=== PATIENT | male | born 1965 | race Caucasian/White ===

== ENCOUNTER 2017-07-30 17:50 | Emergency (ER) | payer MEDICAID, OTHER ==
--- NOTE | 2017-07-30 19:07 | ED Physician Documentation ---
PD HPI URI - Stated complaint Stated Complaint: FLU LIKE SYMPTOMS - Chief complaint Chief Complaint: Resp - History obtained from History obtained from: Patient - History of Present Illness Timing - onset: How many days ago (4) Timing duration: Days (4) Timing details: Abrupt onset, Still present Associated symptoms: Fever, Chills, Nasal congestion, Sore throat, Dry cough, NVD. No: Hemoptysis Contributing factors: No: Sick contact, Travel, Immunocompromised Worsened by: Activity Similar symptoms before: Has not had sx before Recently seen: Not recently seen Review of Systems Constitutional: reports: Fever, Chills, Myalgias, Fatigue Nose: reports: Rhinorrhea / runny nose, Congestion Throat: reports: Sore throat Cardiac: reports: Chest pain / pressure, Pedal edema, Calf pain Respiratory: reports: Cough GI: reports: Nausea, Vomiting. denies: Diarrhea Skin: denies: Rash, Lesions PD PAST MEDICAL HISTORY - Past Medical History Past Medical History: No Cardiovascular: None Respiratory: None Neuro: None Endocrine/Autoimmune: None GI: None : None HEENT: None Psych: None Musculoskeletal: None Derm: None - Past Surgical History Past Surgical History: No - Present Medications Home Medications: Ambulatory Orders Medication Instructions Recorded Confirmed Benzonatate [Tessalon] 100 mg PO TID PRN #25 capsule 07/30/17 Dexamethasone [Decadron] 4 mg PO DAILY #5 tablet 07/30/17 Naproxen 375 mg PO BID #20 tablet 07/30/17 Ondansetron Odt [Zofran] 4 mg TL Q6H PRN #15 tablet 07/30/17 oxyCODONE [Roxicodone] 10 mg PO QID 07/30/17 - Allergies Allergies/Adverse Reactions: Allergies Allergy/AdvReac Type Severity Reaction Status Date / Time No Known Drug Allergies Allergy Verified 08/01/17 18:45 - Social History Does the pt smoke?: Yes Smoking Status: Current every day smoker Does the pt drink ETOH?: No Does the pt have substance abuse?: No - Immunizations Immunizations are current?: No Immunizations: Other immun not current - POLST Patient has POLST: No PD ED PE NORMAL - Vitals Vital signs reviewed: Yes - General General: Alert and oriented X 3, No acute distress, Well developed/nourished - HEENT HEENT: Ears normal, Pharynx benign. No: Moist mucous membranes - Neck Neck: Supple, no meningeal sign, No adenopathy - Cardiac Cardiac: RRR, No murmur - Respiratory Respiratory: Clear bilaterally - Abdomen Abdomen: Soft, Non tender - Derm Derm: Normal color, Warm and dry, No rash - Neuro Neuro: Alert and oriented X 3, No motor deficit, Normal speech Results - Vitals Vitals: Oxygen O2 Source Room air - Labs Labs: Laboratory Tests 07/30/17 19:29 Sodium 129 L Potassium 4.5 Chloride 93 L Carbon Dioxide 26 Anion Gap 10.0 BUN 19 Creatinine 1.0 Estimated GFR (MDRD) 78 L Glucose 109 H Calcium 8.7 Total Bilirubin 0.7 AST 25 ALT 16 Alkaline Phosphatase 47 Total Protein 6.9 Albumin 3.5 Globulin 3.4 Albumin/Globulin Ratio 1.0 Lipase 17 L PD MEDICAL DECISION MAKING - ED course Complexity details: considered differential (feeling some improved energy with IV fluids and able to take oral fluids/snack. However still feeling general malaise and myalgias. He is 4 days into the illness and not a high risk by history, so opted not to give the Tamiflu. ), d/w patient Departure - Departure Disposition: Home, Self Care Clinical Impression: Flu-like symptoms, Dehydration Condition: Stable Record reviewed to determine appropriate education?: Yes Instructions: ED Dehydration, ED Flu Follow-Up: Deya Bedoya MD [Primary Care Provider] - Prescriptions: Benzonatate [Tessalon] 100 mg PO TID PRN #25 capsule PRN Reason: Cough Dexamethasone [Decadron] 4 mg PO DAILY #5 tablet Naproxen 375 mg PO BID #20 tablet Ondansetron Odt [Zofran] 4 mg TL Q6H PRN #15 tablet PRN Reason: Nausea / Vomiting Comments: Drink lots of fluids. Tylenol if needed for fevers or pains. Naproxen twice daily for inflammation and pains. Decadron daily for 5 days as a steroid for inflammation as well and helps with cough and general aches. Ondansetron if needed for nausea. Hopefully will start feeling better in the next few days. Discharge Date/Time: 07/30/17 21:18
[2017-07-30] MEDS ORDERED: KETOROLAC 60 MG/2 ML VIAL IVP STA (19:15)
[2017-07-30] MEDS ORDERED: ONDANSETRON 4 MG/2 ML VIAL IVP STA (19:15)
[2017-07-30] MEDS ORDERED: DEXAMETHASONE 10 MG/ML VIAL IVP STA (19:15)
[2017-07-30] MEDS ORDERED: SODIUM CHLORIDE 0.9% 1,000 ML IV ONE ×2 (19:15)
[2017-07-30 19:48] LABS: ALBUMIN 3.5 g/dL (3.2-5.5); BILIRUBIN,TOTAL 0.7 mg/dL (0.2-1.0); CALCIUM 8.7 mg/dL (8.5-10.3); TOTAL PROTEIN 6.9 g/dL (6.7-8.2)
--- NOTE | 2017-07-30 19:55 | XRAY Report ---
EXAM: CHEST RADIOGRAPHY EXAM DATE: 07/30/2017 07:37 PM. CLINICAL HISTORY: Chest pain, left sided. COMPARISON: 03/27/2011. TECHNIQUE: 2 views. FINDINGS: Lungs/Pleura: No focal opacities evident. No pleural effusion. No pneumothorax. Normal volumes. Mediastinum: Heart and mediastinal contours are unremarkable. Other: No bony abnormality noted. IMPRESSION: Normal 2-view chest radiography. [facility] Referring Provider Line: [phone] SITE ID: [id number]
[2017-07-30] MEDS ORDERED: BENZONATATE 100 MG CAPSULE PO STA (20:57)
[2017-07-30] MEDS ORDERED: ONDANSETRON ODT 4 MG Prepack 2 TL PRN (20:57)
[2017-07-30 21:17] VITALS: BP 138/77
== END 2017-07-30 21:18 | disposition home or self-care (01) ==
LOC: ED 17:50
DX: R50.9 Fever, unspecified (principal); R09.81 Nasal congestion; J02.9 Acute pharyngitis, unspecified; E86.0 Dehydration; F17.200 Nicotine dependence, unspecified, uncomplicated
CPT/HCPCS: 36415; 71046; 80053; 83690; 96361; 96374; 96375; 99283; 99284; A9270

== ENCOUNTER 2017-08-01 18:36 | Observation (INO) | payer OTHER ==
--- NOTE | 2017-08-01 20:08 | ED Physician Documentation ---
PD HPI ABD PAIN - Stated complaint Stated Complaint: ABD PX/VOMITING - Chief complaint Chief Complaint: Abd Pain - History obtained from History obtained from: Patient - History of Present Illness Timing - onset: How many days ago (4) Timing - duration: Days (4) Timing - details: Gradual onset Pain level now: 10 Quality: Pain Location: All over / everywhere Radiation: Other (does not radiate) Improved by: Eating, Laying still Worsened by: Moving Associated symptoms: Nausea, Vomiting, Loss of appetite. No: Fever Similar symptoms before: No diagnosis Recently seen: Emergency Dept (T+R 2 days ago for similar symptoms) - Additional information Additional information: c/o 4 days of generalized malaise and myalgias, abdominal pain, nausea and vomiting, poor appetite. c/o fatigue. T+R 2 days ago for similar symptoms but did not fill the prescriptions provided, as he did not feel he would need them. Review of Systems Constitutional: reports: Myalgias, Fatigue. denies: Fever, Chills, Sweats Ears: reports: Reviewed and negative Nose: reports: Reviewed and negative Throat: denies: Sore throat Cardiac: reports: Reviewed and negative Respiratory: reports: Reviewed and negative GI: reports: Abdominal Pain, Nausea, Vomiting : denies: Dysuria, Frequency Skin: reports: Reviewed and negative Musculoskeletal: reports: Reviewed and negative Neurologic: reports: Generalized weakness. denies: Focal weakness, Numbness, Headache PD PAST MEDICAL HISTORY - Past Medical History Cardiovascular: None Respiratory: None Neuro: None Endocrine/Autoimmune: None GI: None : None HEENT: None Psych: None Musculoskeletal: None Derm: None - Past Surgical History Past Surgical History: No - Present Medications Home Medications: Ambulatory Orders Medication Instructions Recorded Confirmed Benzonatate [Tessalon] 100 mg PO TID PRN #25 capsule 07/30/17 Dexamethasone [Decadron] 4 mg PO DAILY #5 tablet 07/30/17 Naproxen 375 mg PO BID #20 tablet 07/30/17 Ondansetron Odt [Zofran] 4 mg TL Q6H PRN #15 tablet 07/30/17 oxyCODONE [Roxicodone] 10 mg PO QID 07/30/17 - Allergies Allergies/Adverse Reactions: Allergies Allergy/AdvReac Type Severity Reaction Status Date / Time No Known Drug Allergies Allergy Verified 08/01/17 18:45 - Social History Does the pt smoke?: Yes Smoking Status: Current every day smoker Does the pt drink ETOH?: No Does the pt have substance abuse?: No - Immunizations Immunizations are current?: No Immunizations: Other immun not current - POLST Patient has POLST: No PD ED PE NORMAL - Vitals Vital signs reviewed: Yes - General General: Alert and oriented X 3, No acute distress, Well developed/nourished - HEENT HEENT: Moist mucous membranes - Neck Neck: Supple, no meningeal sign - Cardiac Cardiac: RRR, No murmur, No gallop, No rub - Respiratory Respiratory: No respiratory distress, Clear bilaterally - Abdomen Abdomen: Soft, Other (mild generalized tenderness without rebound or guarding) - Back Back: No CVA TTP - Derm Derm: Normal color, Warm and dry Results - Vitals Vitals: Vital Signs - 24 hr 08/01/17 08/01/17 18:40 20:40 Temperature 36.9 C 37.3 C Heart Rate 63 60 Respiratory 22 22 Rate Blood Pressure 135/83 H O2 Saturation 99 100 Oxygen O2 Source Room air - Labs Labs: Laboratory Tests 08/01/17 08/01/17 08/01/17 19:55 20:00 20:00 WBC 12.1 H RBC 5.49 Hgb 15.3 Hct 45.1 MCV 82.2 MCH 27.9 MCHC 34.0 RDW 13.7 Plt Count 206 MPV 7.8 Neut # 9.3 H Lymph # 1.3 L [place] # 1.5 H Eos # 0.0 Baso # 0.0 Absolute Nucleated RBC 0.00 Nucleated RBC % 0.0 Sodium 132 L Potassium 3.7 Chloride 95 L Carbon Dioxide 26 Anion Gap 11.0 BUN 21 H Creatinine 0.8 Estimated GFR (MDRD) 101 Glucose 115 H Calcium 9.0 Total Bilirubin 0.9 AST 32 ALT 20 Alkaline Phosphatase 49 Total Protein 7.1 Albumin 3.5 Globulin 3.6 Albumin/Globulin Ratio 1.0 Lipase 25 Urine Color YELLOW Urine Clarity CLEAR Urine pH 7.5 Ur Specific [place] 1.020 Urine Protein TRACE Urine Glucose (UA) NEGATIVE Urine Ketones >=80 H Urine Occult Blood TRACE-INTA Urine Nitrite NEGATIVE Urine Bilirubin NEGATIVE Urine Urobilinogen 4 H Ur Leukocyte Esterase NEGATIVE Ur Microscopic Review NOT INDICATED Urine Culture Comments NOT INDICATED - Rads (name of study) CT A/P Radiology: Prelim report reviewed, See rad report PD MEDICAL DECISION MAKING - ED course Complexity details: reviewed old records, reviewed results, re-evaluated patient , considered differential, d/w patient Departure - Departure Disposition: ED Place in Observation Clinical Impression: Gastritis Condition: Good Discharge Date/Time: 08/01/17 22:46
[2017-08-01 20:10] LABS: GLUCOSE, URINE (UA) NEGATIVE (NEGATIVE); KETONES,URINE (UA) >=80 mg/dL (NEGATIVE); LEUKOCYTE ESTERASE, URINE NEGATIVE (NEGATIVE); NITRITE,URINE NEGATIVE (NEGATIVE); OCCULT BLOOD,URINE TRACE-INTA (NEGATIVE); PH,URINE 7.5 PH (5.0-7.5); PROTEIN,URINE TRACE mg/dL (NEGATIVE); UROBILINOGEN,URINE 4 E.U./dL (NORMAL)
[2017-08-01 20:13] LABS: BILIRUBIN,URINE NEGATIVE (NEGATIVE); CLARITY,URINE CLEAR (CLEAR); ICTOTEST,URINE NEGATIVE
[2017-08-01 20:14] LABS: BASOPHILS % (AUTO) 0.3 %; EOSINOPHILS % (AUTO) 0.1 %; HGB - HEMOGLOBIN 15.3 g/dL (14.0-18.0); LYMPHOCYTES # (AUTO) 1.3 10^3/uL (1.5-3.5); LYMPHOCYTES % (AUTO) 10.4 %; MEAN CORPUSCULAR HEMOGLOBIN 27.9 pg (27.0-31.0); MEAN CORPUSCULAR VOLUME 82.2 fL (80.0-94.0); MEAN PLATELET VOLUME 7.8 fL (7.4-11.4); MONOCYTES # (AUTO) 1.5 10^3/uL (0.0-1.0); NEUTROPHILS # (AUTO) 9.3 10^3/uL (1.5-6.6); NEUTROPHILS % (AUTO) 77.2 %; PLT - PLATELET COUNT 206 10^3/uL (130-450); RED BLOOD COUNT 5.49 10^6/uL (4.70-6.10); RED CELL DISTRIBUTION WIDTH 13.7 % (12.0-15.0); WHITE BLOOD COUNT 12.1 x10^3/uL (4.8-10.8)
[2017-08-01 20:20] LABS: ALBUMIN 3.5 g/dL (3.2-5.5); BILIRUBIN,TOTAL 0.9 mg/dL (0.2-1.0); CREATININE 0.8 mg/dL (0.6-1.2); TOTAL PROTEIN 7.1 g/dL (6.7-8.2)
[2017-08-01] MEDS ORDERED: SODIUM CHLORIDE 0.9% 1,000 ML IV STA ×2 (20:25→21:50)
[2017-08-01] MEDS ORDERED: IOPAMIDOL-300 100 ML VIAL ONE (20:49)
[2017-08-01] MEDS ORDERED: IOPAMIDOL-300 100 ML VIAL IVP ONE (21:04)
--- NOTE | 2017-08-01 21:20 | CT Report ---
EXAM: CT ABDOMEN AND PELVIS EXAM DATE: 08/01/2017 09:04 PM. CLINICAL HISTORY: Abd. pain. COMPARISONS: None. TECHNIQUE: Routine helical CT imaging was performed through the abdomen and pelvis. IV contrast: ISOV UE 300 100mL. Enteric contrast: No. Reconstructions: Coronal and sagittal. In accordance with CT protocol optimization, one or more of the following dose reduction techniques w ere utilized for this exam: automated exposure control, adjustment of mA and/or KV based on patient s ize, or use of iterative reconstructive technique. FINDINGS: Lung Bases: Unremarkable. Liver: 0.8 cm hepatic segment 8 subcapsular hypodensity (3/21) is indeterminate, too small to charact erize. Similar 0.5 cm segment 5 hypodensity is seen (3/25). No other focal liver lesions seen. Hepati c and portal veins are patent. Gallbladder/Bile Ducts: Unremarkable. Spleen: Normal. Pancreas: Normal. Adrenal Glands: Normal. Kidneys: No solid enhancing masses or hydronephrosis bilaterally. Few rounded subcentimeter renal cor tical hypodensities bilaterally are too small to characterize, possibly cysts. Peritoneal Cavity/Bowel: There is severe wall thickening of the gastric antrum, pylorus, and the firs t second and proximal third portions of the duodenum with associated mucosal hyperenhancement. Findin gs are nonspecific, and could represent distal gastritis and proximal duodenitis. No ulcers are seen. Remainder of the small bowel loops appear unremarkable without evidence for inflammation or obstruct ion. Colon is also unremarkable with scattered diverticula without inflammation. No enlarged intraper itoneal or retroperitoneal lymph nodes are seen. No pneumoperitoneum or ascites. The appendix is well visualized and normal. Pelvic Organs: Unremarkable urinary bladder for degree of distention. Prostate and seminal vesicles a re normal. Vasculature: No aneurysms or other significant abnormality. Bones: Mild degenerative changes in the spine. Other: None. IMPRESSION: 1. Severe wall thickening of the gastric antrum, pylorus, and first through third portions of the duo denum with associated mucosal hyperenhancement is of unclear etiology, but could reflect nonspecific gastritis and proximal duodenitis. No ulcer is evident by CT. No discrete mass lesion is seen. Howeve r, an infiltrative malignancy such as lymphoma cannot be entirely excluded. Correlation with laborato ry parameters is recommended. Gastroenterology consultation could be obtained for further evaluation by endoscopy. 2. 2 small hepatic subcentimeter hypodensities are indeterminate, too small to characterize. These ma y represent small hepatic cysts or hemangiomas. Liver MRI could be obtained for further evaluation if clinically indicated. 3. Otherwise as above. [facility] Referring Provider Line: [phone] SITE ID: [id number]
[2017-08-01] MEDS ORDERED: PANTOPRAZOLE 40 MG VIAL IV STA (21:49)
[2017-08-01] MEDS ORDERED: ONDANSETRON 4 MG/2 ML VIAL IVP STA (21:50)
[2017-08-01] MEDS ORDERED: MORPHINE 2 MG/ML CARPUJECT IVP STA (21:50)
[2017-08-01] MEDS ORDERED: ONDANSETRON 4 MG/2 ML VIAL IVP PRN (22:02)
[2017-08-01] MEDS ORDERED: ZOLPIDEM 5 MG TABLET PO PRN (22:02)
[2017-08-01] MEDS ORDERED: PROCHLORPERAZINE 10 MG/2 ML VIAL IVP PRN (22:02)
[2017-08-01] MEDS ORDERED: MORPHINE 2 MG/ML CARPUJECT IVP PRN (22:02)
[2017-08-01] MEDS ORDERED: SODIUM CHLORIDE FLUSH 0.9% 10 ML SYRINGE IVP PRN (22:02)
[2017-08-01] MEDS ORDERED: oxyCODONE 5 MG TABLET PO PRN (22:02)
[2017-08-01] MEDS ORDERED: LORazepam 2 MG/ML VIAL IVP SCH (22:41)
--- NOTE | 2017-08-01 22:45 | HISTORY & PHYSICAL EXAMINATION ---
Chief Complaint - Chief Complaint Chief Complaint: Abdominal Pain History of Present Illness - Admitted From Admitted From:: Emergency Department - History Obtained From Records Reviewed: Yes History obtained from: Patient and medical records Exam Limitations: Patient writhing in pain made him disinterested in giving detailed history - History of Present Illness HPI Comment/Other: Patient is a 52-year-old gentleman with a past medical history significant for chronic low back pain and bilateral shoulder pain from previous sports related injuries currently on oxycodone and NSAIDs for treatment who presented to the emergency department with a chief complaint of abdominal pain. The patient states that he was in his normal state of health until 5 days ago when he began to develop flulike symptoms. He states that he had chills and noticed that he had a scratchy throat after he smoked a cigarette. He states he came to the emergency department 2 days ago with complaint of flulike symptoms. At that time the patient was treated with Toradol and discharged home on dexamethasone and naproxen. The patient states that he did not fill either of those scripts and did not take that medication. He states that after getting IV Zofran in the emergency department that his abdomen began to hurt. He states that he could not keep anything down. He states that he had violent intractable vomiting throughout the day yesterday. He states that after the vomiting he began to have severe pain which continued to worsen until he had another episode of vomiting. He states he continues to have episodic abdominal pain that seems to worsen to the point where it causes him to vomit and then he has some relief of the pain but then it starts back up again. He states that this has been occurring since yesterday and has gotten to a point where he states that he cannot tolerate it anymore. The patient states that he is normally on 10 mg of oxycodone 4 times a day however over the last 2 days because of his vomiting he has been not been able to keep down the oxycodone. He states that as a result he believes he is having some withdrawal symptoms as he feels very restless and has been having cold sweats. The patient denies any fevers and states his flulike symptoms seem to have improved. The patient denies any black or bloody stools. The patient does admit to using ibuprofen 800 mg up to 3 times a day prior to 2 days ago for his chronic pain. He states that he also would take Aleve intermittently in the past. The patient also admits to smoking cigarettes he states he does not smoke more than 4 cigarettes a day. The patient denied any alcohol use. The patient denied any diarrhea. The patient states that his abdominal pain is located in the epigastric area and goes down to his umbilicus. He denies any radiation of the abdominal pain. The patient states in the past he has received cortisone injections in his back but this was several years ago. The patient states that he has had decreased appetite and has not had anything to eat for the last 2 days. Patient denies any headaches, blurred vision, runny nose, sore throat, nasal congestion, cough, difficulty swallowing, chest pain, shortness of air, orthopnea, PND, increased lower extremity swelling, constipation, joint swelling , muscle aches, neck stiffness, recent unintentional weight loss, night sweats or any focal neurologic deficits. The patient also denies any urinary urgency frequency or dysuria. On presentation to the emergency department the patient was afebrile, hypertensive and mildly tachypneic. The patient however was saturating well on room air. He did appear to be in some significant distress as he was writhing around in the bed. The patient appeared to be restless and agitated. It was difficult for the emergency room staff to get detailed history from the patient because he just seemed to be very uncomfortable. On exam the patient appeared to have significant tenderness in the epigastric area and lab work showed a mild leukocytosis of 12.1. The patient's lipase was normal and his LFTs were within normal limits. Patient had a normal urine analysis. The patient underwent a CT scan of his abdomen and pelvis which revealed severe wall thickening of the gastric antrum, pylorus, and first through third parts of the duodenum with associated mucosal hyperenhancement which was of unclear etiology. It likely represented nonspecific gastritis and proximal duodenitis without any evidence of an ulcer. There was no discrete mass lesion but an infiltrative malignancy such as lymphoma could not be excluded. The radiologist recommended a consultation for endoscopy. There was also finding of 2 small hepatic subcentimeter hypodensities which were too small to characterize but could represent small hepatic cysts or hemangiomas. The radiologist also recommended a liver MRI at some point. Given the patient's severe pain and inability to tolerate anything orally the patient was placed in observation for pain control, treatment of gastritis and opioid withdrawal. History - Past Medical History Cardiovascular: reports: None Respiratory: reports: None Neuro: reports: None Endocrine/Autoimmune: reports: None GI: reports: None : reports: None HEENT: reports: None Psych: reports: None Musculoskeletal: reports: Osteoarthritis (Bilateral shoulders), Chronic back pain (Low back pain) Derm: reports: None MRSA Hx?: No - Family & Social History Family History: Mother: COPD/Emphysema, Father: CVA/TIA Living arrangement: At home Living Situation: With family (Mother) Social History Notes: Patient is originally from [place], [place]. He has 1 daughter and 2 years ago broke up with his girlfriend and now lives with his mother on [address] [facility] [address]. The patient states that most of his family lives on [address] [facility] [address]. The patient states that his mother has severe COPD and is at home in a hospital bed nearing the end of her life. The patient currently smokes 3-4 cigarettes a day. He states that he quit smoking for about 13 years but then started back up in 2014. He states he previously smoked more than a pack a day. The patient denies any alcohol use. He states he rarely smokes marijuana. - POLST Patient has POLST: No POLST Status: Full Code Meds/Allgy - Home Medications Home Medications: Ambulatory Orders Medication Instructions Recorded Confirmed Benzonatate [Tessalon] 100 mg PO TID PRN #25 capsule 07/30/17 Dexamethasone [Decadron] 4 mg PO DAILY #5 tablet 07/30/17 Naproxen 375 mg PO BID #20 tablet 07/30/17 Ondansetron Odt [Zofran] 4 mg TL Q6H PRN #15 tablet 07/30/17 oxyCODONE [Roxicodone] 10 mg PO QID 07/30/17 - Allergies Allergies/Adverse Reactions: Allergies Allergy/AdvReac Type Severity Reaction Status Date / Time No Known Drug Allergies Allergy Verified 08/01/17 18:45 Review of Systems - Other Findings Other Findings: A comprehensive review of systems was performed the pertinent positives and negatives are stated above in the HPI and the remainder of the review of systems is negative. Exam - Vital Signs Reviewed Vital Signs: Yes Vital Signs: Vital Signs x48h Pulse Resp BP Pulse Ox 08/01/17 22:03 51 L 16 170/87 H 100 - Physical Exam General Appearance: positive: Alert, Moderate distress (Patient writhing around in bed appears to be in pain and very uncomfortable) Eyes Bilateral: positive: Normal inspection, PERRL, EOMI, No lid inflammation, Conjunctivae nml, No scleral icterus ENT: positive: ENT inspection nml, Pharynx nml, Dry mucous membranes. negative : Purulent nasal drainage, Pharyngeal erythema, Oral lesions Neck: positive: Nml inspection, Thyroid nml, No JVD, Trachea midline. negative : Thyromegaly, Lymphadenopathy (R), Lymphadenopathy (L), Stiff neck, Carotid bruit, Tracheal deviation Respiratory: positive: Chest non-tender, No respiratory distress, Breath sounds nml. negative: Wheezes, Rales, Rhonchi Cardiovascular: positive: Regular rate & rhythm, No murmur Peripheral Pulses: positive: 2+ Abdomen: positive: Tenderness (Severe tenderness especially in the epigastric area with just mild touch), Guarding (Voluntary). negative: Rebound, Hepatomegaly, Splenomegaly, Mass Back: positive: Nml inspection. negative: CVA tenderness (R), CVA tenderness (L ) Skin: positive: Color nml, No rash, Warm, Dry. negative: Cyanosis, Diaphoresis , Pallor Extremities: positive: Non-tender, Full ROM, Nml appearance, No pedal edema Neurologic/Psychiatric: positive: Oriented x3, CN's nml (2-12), Motor nml, Sensation nml Conclusion/Plan - Problem List (1) Abdominal pain Conclusion/Plan: Patient has been having abdominal pain for the last 2 days it is located in the epigastric area and moves down to the umbilicus otherwise is nonradiating. Pain is severe and uncontrolled on presentation. Patient has not been able to keep anything down as he has been having intractable vomiting. Patient has a history of chronic pain and has been using ibuprofen 800 mg 3 times a day and Aleve intermittently for years. Patient received Toradol during his ER visit a few days ago. Patient had severe tenderness on examination of his abdomen. He has a mild leukocytosis. CT of his abdomen shows severe wall thickening of the gastric antrum, pylorus and first through third portion of the duodenum with associated mucosal hyperenhancement which is of unclear etiology but could reflect nonspecific gastritis and proximal duodenitis. There is no discrete lesion seen however an infiltrative malignancy such as lymphoma cannot be entirely excluded. Given the patient's history of NSAID use, smoking, acute onset of symptoms and CT findings patient appears likely to have severe gastritis and duodenitis likely from NSAID use and smoking. However given the mucosal hyper and enhancement seen on CT we cannot rule out malignancy. The cause of gastritis is likely due to excessive NSAID use and smoking however patient could also have H. pylori. Plan: Given patient's intractable pain and vomiting patient will need to be placed in observation IV fluids IV antiemetics IV PPI twice daily GI cocktail Carafate N.p.o. IV pain control with morphine Surgical consult for EGD with biopsies inpatient versus outpatient H. pylori testing with breath test and stool antigen test Monitor closely Qualifiers: Abdominal location: epigastric Qualified Code(s): R10.13 - Epigastric pain (2) Chronic pain Conclusion/Plan: Patient has chronic low back pain and shoulder pain for which he has been on opioids for years. The patient takes oxycodone 10 mg 4 times a day at home. The patient is also taking ibuprofen 800 mg 3 times a day and Aleve intermittently prior to his most recent symptoms. The patient states that due to his recent intractable vomiting he has not been able to take his oxycodone as he normally does. He states that he is feeling restless and having cold sweats which is concerning for opioid withdrawal. Plan: Patient will be placed on IV morphine for pain control and opioid withdrawal Patient will be given IV Ativan for restlessness and agitation associated with opiate withdrawal. Qualifiers: Chronic pain type: other chronic pain Qualified Code(s): G89.29 - Other chronic pain (3) Hyponatremia Conclusion/Plan: On presentation patient's sodium is 132 with a chloride of 95. The patient has been having intractable vomiting and appears to be dehydrated. The patient likely has hypovolemic hyponatremia. Patient will be treated with IV fluids and we will continue to monitor his sodium. (4) Hypertension Conclusion/Plan: On presentation to the emergency department the patient is fairly hypertensive with blood pressure as high as 170/87. Patient states he does not have a history of hypertension. Patient is likely hypertensive secondary to pain from his abdominal pathology and also from distress due to opioid withdrawal. We will treat the underlying condition if patient's blood pressure continues to be elevated then we will consider starting him on antihypertensive medication. Qualifiers: Hypertension type: unspecified Qualified Code(s): I10 - Essential (primary ) hypertension (5) Liver lesion Conclusion/Plan: Patient has incidental finding of 2 small hepatic subcentimeter hypodensities which are too small to characterize on CT. These may represent small hepatic cysts or hemangiomas. Liver MRI is recommended for further evaluation by radiologist. Patient will need outpatient MRI depending on results of EGD and biopsies. - Lab Results Lab results reviewed: Yes Fish Bones: 08/01/17 20:00 08/01/17 20:00 Other Lab Results: Laboratory Results WBC 12.1 x10^3/uL (4.8-10.8) H 08/01/17 20:00 RBC 5.49 10^6/uL (4.70-6.10) 08/01/17 20:00 Hgb 15.3 g/dL (14.0-18.0) 08/01/17 20:00 Hct 45.1 % (42.0-52.0) 08/01/17 20:00 MCV 82.2 fL (80.0-94.0) 08/01/17 20:00 MCH 27.9 pg (27.0-31.0) 08/01/17 20:00 MCHC 34.0 g/dL (32.0-36.0) 08/01/17 20:00 RDW 13.7 % (12.0-15.0) 08/01/17 20:00 Plt Count 206 10^3/uL (130-450) 08/01/17 20:00 MPV 7.8 fL (7.4-11.4) 08/01/17 20:00 Neut # 9.3 10^3/uL (1.5-6.6) H 08/01/17 20:00 Lymph # 1.3 10^3/uL (1.5-3.5) L 08/01/17 20:00 [place] # 1.5 10^3/uL (0.0-1.0) H 08/01/17 20:00 Eos # 0.0 10^3/uL (0.0-0.7) 08/01/17 20:00 Baso # 0.0 10^3/uL (0.0-0.1) 08/01/17 20:00 Absolute Nucleated RBC 0.00 x10^3/uL 08/01/17 20:00 Nucleated RBC % 0.0 /100WBC 08/01/17 20:00 Sodium 132 mmol/L (135-145) L 08/01/17 20:00 Potassium 3.7 mmol/L (3.5-5.0) 08/01/17 20:00 Chloride 95 mmol/L (101-111) L 08/01/17 20:00 Carbon Dioxide 26 mmol/L (21-32) 08/01/17 20:00 Anion Gap 11.0 (6-13) 08/01/17 20:00 BUN 21 mg/dL (6-20) H 08/01/17 20:00 Creatinine 0.8 mg/dL (0.6-1.2) 08/01/17 20:00 Estimated GFR (MDRD) 101 (>89) 08/01/17 20:00 Glucose 115 mg/dL (70-100) H 08/01/17 20:00 Calcium 9.0 mg/dL (8.5-10.3) 08/01/17 20:00 Total Bilirubin 0.9 mg/dL (0.2-1.0) 08/01/17 20:00 AST 32 IU/L (10-42) 08/01/17 20:00 ALT 20 IU/L (10-60) 08/01/17 20:00 Alkaline Phosphatase 49 IU/L (42-121) 08/01/17 20:00 Total Protein 7.1 g/dL (6.7-8.2) 08/01/17 20:00 Albumin 3.5 g/dL (3.2-5.5) 08/01/17 20:00 Globulin 3.6 g/dL (2.1-4.2) 08/01/17 20:00 Albumin/Globulin Ratio 1.0 (1.0-2.2) 08/01/17 20:00 Lipase 25 U/L (22-51) 08/01/17 20:00 Urine Color YELLOW 08/01/17 19:55 Urine Clarity CLEAR (CLEAR) 08/01/17 19:55 Urine pH 7.5 PH (5.0-7.5) 08/01/17 19:55 Ur Specific [place] 1.020 (1.002-1.030) 08/01/17 19:55 Urine Protein TRACE mg/dL (NEGATIVE) 08/01/17 19:55 Urine Glucose (UA) NEGATIVE mg/dL (NEGATIVE) 08/01/17 19:55 Urine Ketones >=80 mg/dL (NEGATIVE) H 08/01/17 19:55 Urine Occult Blood TRACE-INTA (NEGATIVE) 08/01/17 19:55 Urine Nitrite NEGATIVE (NEGATIVE) 08/01/17 19:55 Urine Bilirubin NEGATIVE (NEGATIVE) 08/01/17 19:55 Urine Urobilinogen 4 E.U./dL (NORMAL) H 08/01/17 19:55 Ur Leukocyte Esterase NEGATIVE (NEGATIVE) 08/01/17 19:55 Ur Microscopic Review NOT INDICATED 08/01/17 19:55 Urine Culture Comments NOT INDICATED 08/01/17 19:55 - Diagnostic Imaging Results Diagnostic Imaging Results: positive: Final report reviewed Diagnostic Imaging Results Comments: EXAM: CT ABDOMEN AND PELVIS EXAM DATE: 08/01/2017 09:04 PM. CLINICAL HISTORY: Abd. pain. COMPARISONS: None. TECHNIQUE: Routine helical CT imaging was performed through the abdomen and pelvis. IV contrast: ISOVUE 300 100mL. Enteric contrast: No. Reconstructions: Coronal and sagittal. In accordance with CT protocol optimization, one or more of the following dose reduction techniques were utilized for this exam: automated exposure control, adjustment of mA and/or KV based on patient size, or use of iterative reconstructive technique. FINDINGS: Lung Bases: Unremarkable. Liver: 0.8 cm hepatic segment 8 subcapsular hypodensity (3/21) is indeterminate , too small to characterize. Similar 0.5 cm segment 5 hypodensity is seen (3/25). No other focal liver lesions seen. Hepatic and portal veins are patent. Gallbladder/Bile Ducts: Unremarkable. Spleen: Normal. Pancreas: Normal. Adrenal Glands: Normal. Kidneys: No solid enhancing masses or hydronephrosis bilaterally. Few rounded subcentimeter renal cortical hypodensities bilaterally are too small to characterize, possibly cysts. Peritoneal Cavity/Bowel: There is severe wall thickening of the gastric antrum, pylorus, and the first second and proximal third portions of the duodenum with associated mucosal hyperenhancement. Findings are nonspecific, and could represent distal gastritis and proximal duodenitis. No ulcers are seen. Remainder of the small bowel loops appear unremarkable without evidence for inflammation or obstruction. Colon is also unremarkable with scattered diverticula without inflammation. No enlarged intraperitoneal or retroperitoneal lymph nodes are seen. No pneumoperitoneum or ascites. The appendix is well visualized and normal. Pelvic Organs: Unremarkable urinary bladder for degree of distention. Prostate and seminal vesicles are normal. Vasculature: No aneurysms or other significant abnormality. Bones: Mild degenerative changes in the spine. Other: None. IMPRESSION: 1. Severe wall thickening of the gastric antrum, pylorus, and first through third portions of the duodenum with associated mucosal hyperenhancement is of unclear etiology, but could reflect nonspecific gastritis and proximal duodenitis. No ulcer is evident by CT. No discrete mass lesion is seen. However, an infiltrative malignancy such as lymphoma cannot be entirely excluded. Correlation with laboratory parameters is recommended. Gastroenterology consultation could be obtained for further evaluation by endoscopy. 2. 2 small hepatic subcentimeter hypodensities are indeterminate, too small to characterize. These may represent small hepatic cysts or hemangiomas. Liver MRI could be obtained for further evaluation if clinically indicated. 3. Otherwise as above. Core Measures - Anticipated LOS I expect patient to be DC'd or transferred within 96 hours.: Yes - DVT/VTE - Prophylaxis VTE/DVT Device ordered at admit?: Yes
[2017-08-01] MEDS ORDERED: PANTOPRAZOLE 40 MG TABLET PO SCH (23:00)
[2017-08-01] MEDS ORDERED: LORazepam 2 MG/ML VIAL ONE ×2 (23:32→23:39)
[2017-08-01] MEDS: GI COCKTAIL 120 ML BOTTLE PO SCH (23:44)
[2017-08-01] MEDS: SUCRALFATE 1 GM/10 ML UDC PO SCH (23:44)
[2017-08-01] MEDS: SODIUM CHLORIDE FLUSH 0.9% 10 ML SYRINGE IVP SCH (23:47)
[2017-08-01] MEDS: SODIUM CHLORIDE 0.9% 1,000 ML IV SCH (23:49)
[2017-08-02] MEDS: SODIUM CHLORIDE 0.9% 1,000 ML IV SCH ×3 (04:15→22:34)
[2017-08-02] MEDS: SUCRALFATE 1 GM/10 ML UDC PO SCH ×4 (05:53→22:33)
[2017-08-02] MEDS: ACETAMINOPHEN 325 MG TABLET PO PRN ×2 (05:54→15:15)
[2017-08-02 06:06] LABS: BASOPHILS % (AUTO) 0.2 %; EOSINOPHILS % (AUTO) 0.2 %; HGB - HEMOGLOBIN 13.8 g/dL (14.0-18.0); LYMPHOCYTES # (AUTO) 1.6 10^3/uL (1.5-3.5); LYMPHOCYTES % (AUTO) 15.3 %; MEAN CORPUSCULAR HGB CONC 34.1 g/dL (32.0-36.0); MEAN CORPUSCULAR VOLUME 82.1 fL (80.0-94.0); MEAN PLATELET VOLUME 7.5 fL (7.4-11.4); MONOCYTES # (AUTO) 1.5 10^3/uL (0.0-1.0); MONOCYTES % (AUTO) 14.3 %; NEUTROPHILS # (AUTO) 7.1 10^3/uL (1.5-6.6); PLT - PLATELET COUNT 194 10^3/uL (130-450); RED BLOOD COUNT 4.93 10^6/uL (4.70-6.10); RED CELL DISTRIBUTION WIDTH 13.5 % (12.0-15.0); WHITE BLOOD COUNT 10.2 x10^3/uL (4.8-10.8)
[2017-08-02 06:09] LABS: ALBUMIN 2.9 g/dL (3.2-5.5); BILIRUBIN,TOTAL 0.7 mg/dL (0.2-1.0); CALCIUM 8.2 mg/dL (8.5-10.3); CREATININE 0.8 mg/dL (0.6-1.2); MAGNESIUM 1.8 mg/dL (1.7-2.8); PHOSPHORUS 2.7 mg/dL (2.5-4.6); TOTAL PROTEIN 5.9 g/dL (6.7-8.2)
[2017-08-02] MEDS: POLYETHYLENE GLYCOL 3350 17 GM PACKET PO SCH (09:22)
[2017-08-02] MEDS: SODIUM CHLORIDE FLUSH 0.9% 10 ML SYRINGE IVP SCH ×2 (09:22→20:50)
[2017-08-02] MEDS: GI COCKTAIL 120 ML BOTTLE PO SCH ×4 (09:44→21:07)
[2017-08-02] MEDS: PANTOPRAZOLE 40 MG VIAL IVP SCH ×2 (09:44→20:51)
[2017-08-02] MEDS: oxyCODONE 5 MG TABLET PO PRN ×2 (09:50→20:59)
[2017-08-02] MEDS ORDERED: KETAMINE 500 MG/10 ML VIAL IVP ONE (10:30)
[2017-08-02] MEDS ORDERED: MIDAZOLAM 2 MG/2 ML VIAL IVP ONE (10:30)
[2017-08-02] MEDS ORDERED: SODIUM CHLORIDE 0.9% 1,000 ML IV ONE (10:58)
[2017-08-02] MEDS ORDERED: BENZOCAINE/TETRACAINE/BUTAMBEN SPRAY 56 GM TOP ONE (11:03)
--- NOTE | 2017-08-02 14:22 | PROVIDER PROGRESS NOTE ---
Subjective - Prog Note Date Prog Note Date: 08/02/17 - Subjective Pt reports feeling: Improved Subjective: pt state his abdominal pain is improved. No nausea, vomiting, chest pain, shortness of breath, fever, chill, cough Current Medications - Current Medications Current Medications: Active Medications Acetaminophen (Tylenol) 650 mg PO Q4HR PRN PRN Reason: Pain 1 to 4 Last Admin: 08/02/17 05:54 Dose: 650 mg Sodium Chloride (Normal Saline 0.9%) 1,000 mls @ 100 mls/hr IV .Q10H [facility] Last Admin: 08/02/17 12:49 Dose: 100 mls/hr Morphine Sulfate (Morphine (Carpuject)) 2 mg IVP Q2HR PRN PRN Reason: Pain 8 to 10 Multi-Ingredient Mouthwash/Gargle () 30 ml PO QID [facility] Last Admin: 08/02/17 13:09 Dose: Not Given Ondansetron HCl (Zofran Inj) 4 mg IVP Q6HR PRN PRN Reason: Nausea / Vomiting Oxycodone HCl (Roxicodone) 5 mg PO Q4HR PRN PRN Reason: Pain 5 to 7 Oxycodone HCl (Roxicodone) 10 mg PO Q4HR PRN PRN Reason: Pain 8 to 10 Last Admin: 08/02/17 09:50 Dose: 10 mg Pantoprazole Sodium (Protonix) 40 mg IVP BID [facility] Last Admin: 08/02/17 09:44 Dose: 40 mg Polyethylene Glycol (Miralax) 17 gm PO DAILY [facility] Last Admin: 08/02/17 09:22 Dose: Not Given Prochlorperazine Edisylate (Compazine Inj) 10 mg IVP Q6HR PRN PRN Reason: Nausea / Vomiting Sodium Chloride (Normal Saline Flush 0.9%) 10 ml IVP PRN PRN PRN Reason: NEEDED PER PROVIDER ORDERS Sodium Chloride (Normal Saline Flush 0.9%) 10 ml IVP 0100,0900,1700 [facility] Last Admin: 08/02/17 09:22 Dose: Not Given Sucralfate (Carafate) 1 gm PO 0700,1100,1600,2200 [facility] Last Admin: 08/02/17 12:00 Dose: 1 gm Zolpidem Tartrate (Ambien) 5 mg PO QPM PRN PRN Reason: Insomnia oxyCODONE [Roxicodone] 10 mg PO QID PRN 07/30/17 Ibuprofen 200 mg PO Q6H PRN 08/02/17 Objective - Vital Signs/Intake & Output Reviewed Vital Signs: Yes Vital Signs: Vital Signs x48h Temp Pulse Resp BP BP Pulse Ox 08/02/17 13:55 36.6 C 52 L 16 149/75 H 98 08/02/17 12:55 36.7 C 51 L 16 137/72 H 98 08/02/17 12:25 36.6 C 66 16 140/78 H 96 08/02/17 11:54 36.9 C 59 L 16 145/77 H 96 08/02/17 11:45 96 08/02/17 11:40 96 08/02/17 11:36 97 08/02/17 11:31 97 08/02/17 11:24 96 08/02/17 11:19 97 08/02/17 07:33 36.7 C 53 L 16 150/76 H 99 Intake & Output: Intake & Output 07/30/17 07/31/17 08/01/17 08/02/17 23:59 23:59 23:59 23:59 Intake Total 1270 1300.000 Balance 1270 1300.000 - Objective General Appearance: positive: No acute distress, Alert. negative: Lethargic Eyes Bilateral: positive: Normal inspection, PERRL ENT: positive: ENT inspection nml, Pharynx nml, No signs of dehydration. negative: Purulent nasal drainage, Pharyngeal erythema, Oral lesions Neck: positive: Nml inspection, Thyroid nml, No JVD, Trachea midline. negative : Thyromegaly, Lymphadenopathy (R), Lymphadenopathy (L), Stiff neck, Carotid bruit, Swelling/bruising, Tracheal deviation Respiratory: positive: Chest non-tender, No respiratory distress, Breath sounds nml. negative: Wheezes, Rales, Rhonchi Cardiovascular: positive: Regular rate & rhythm, No murmur, No gallop. negative : Irregularly irregular, Extrasystoles, Tachycardia, Bradycardia, Systolic murmur, Diastolic murmur Peripheral Pulses: 2+ Radial (R), 2+ Radial (L), 2+ Dorsalis pedis (R), 2+ Dorsalis pedis (L) Abdomen: positive: Non-tender, No organomegaly, Nml bowel sounds, No distention. negative: Tenderness, Guarding, Rebound Back: positive: Nml inspection. negative: CVA tenderness (R), CVA tenderness (L ) Skin: positive: Color nml, No rash, Warm, Dry. negative: Cyanosis, Diaphoresis , Pallor Extremities: positive: Non-tender, Full ROM, Nml appearance. negative: Calf tenderness, Joint swelling, Isabella's sign/cords Neurologic/Psychiatric: positive: Oriented x3, Sensation nml, Mood/affect nml. negative: Sensory loss, Facial droop, Slurred/abnml speech, Depressed mood/ affect - Lab Results Fish Bones: 08/02/17 05:45 08/02/17 05:45 Other Labs: Lab Results x24hrs 08/02/17 08/02/17 08/02/17 Range/Units 05:45 05:45 05:45 WBC 10.2 (4.8-10.8) x10^3/uL RBC 4.93 (4.70-6.10) 10^6/uL Hgb 13.8 L (14.0-18.0) g/dL Hct 40.5 L (42.0-52.0) % MCV 82.1 (80.0-94.0) fL MCH 28.0 (27.0-31.0) pg MCHC 34.1 (32.0-36.0) g/dL RDW 13.5 (12.0-15.0) % Plt Count 194 (130-450) 10^3/uL MPV 7.5 (7.4-11.4) fL Neut # 7.1 H (1.5-6.6) 10^3/uL Lymph # 1.6 (1.5-3.5) 10^3/uL [place] # 1.5 H (0.0-1.0) 10^3/uL Eos # 0.0 (0.0-0.7) 10^3/uL Baso # 0.0 (0.0-0.1) 10^3/uL Absolute Nucleated RBC 0.00 x10^3/uL Nucleated RBC % 0.0 /100WBC Sodium 134 L (135-145) mmol/L Potassium 4.0 (3.5-5.0) mmol/L Chloride 102 (101-111) mmol/L Carbon Dioxide 26 (21-32) mmol/L Anion Gap 6.0 (6-13) BUN 17 (6-20) mg/dL Creatinine 0.8 (0.6-1.2) mg/dL Estimated GFR (MDRD) 101 (>89) Glucose 106 H (70-100) mg/dL Lactic Acid 0.8 (0.5-2.2) mmol/L Calcium 8.2 L (8.5-10.3) mg/dL Phosphorus 2.7 (2.5-4.6) mg/dL Magnesium 1.8 (1.7-2.8) mg/dL Total Bilirubin 0.7 (0.2-1.0) mg/dL AST 23 (10-42) IU/L ALT 16 (10-60) IU/L Alkaline Phosphatase 39 L (42-121) IU/L Total Protein 5.9 L (6.7-8.2) g/dL Albumin 2.9 L (3.2-5.5) g/dL Globulin 3.0 (2.1-4.2) g/dL Albumin/Globulin Ratio 1.0 (1.0-2.2) Assessment/Plan - Problem List (1) Abdominal pain Impression: (1) Abdominal pain Conclusion/Plan: status post of EGD surgeon found pt has multiple ulcers in his stomach, and duodenum area continue PPI continue carafate advise pt hold Ibuprofen follow up surgeon in one month begin clear diet recommend stay over night per surgeon Patient has been having abdominal pain for the last 2 days it is located in the epigastric area and moves down to the umbilicus otherwise is nonradiating. Pain is severe and uncontrolled on presentation. Patient has not been able to keep anything down as he has been having intractable vomiting. Patient has a history of chronic pain and has been using ibuprofen 800 mg 3 times a day and Aleve intermittently for years. Patient received Toradol during his ER visit a few days ago. Patient had severe tenderness on examination of his abdomen. He has a mild leukocytosis. CT of his abdomen shows severe wall thickening of the gastric antrum, pylorus and first through third portion of the duodenum with associated mucosal hyperenhancement which is of unclear etiology but could reflect nonspecific gastritis and proximal duodenitis. There is no discrete lesion seen however an infiltrative malignancy such as lymphoma cannot be entirely excluded. Given the patient's history of NSAID use, smoking, acute onset of symptoms and CT findings patient appears likely to have severe gastritis and duodenitis likely from NSAID use and smoking. However given the mucosal hyper and enhancement seen on CT we cannot rule out malignancy. The cause of gastritis is likely due to excessive NSAID use and smoking however patient could also have H. pylori. Plan: Given patient's intractable pain and vomiting patient will need to be placed in observation IV fluids IV antiemetics IV PPI twice daily GI cocktail Carafate N.p.o. IV pain control with morphine Surgical consult for EGD with biopsies inpatient versus outpatient H. pylori testing with breath test and stool antigen test Monitor closely (2) Chronic pain Conclusion/Plan: continue pain control continue Ativan for restlessness and agitation Patient has chronic low back pain and shoulder pain for which he has been on opioids for years. The patient takes oxycodone 10 mg 4 times a day at home. The patient is also taking ibuprofen 800 mg 3 times a day and Aleve intermittently prior to his most recent symptoms. The patient states that due to his recent intractable vomiting he has not been able to take his oxycodone as he normally does. He states that he is feeling restless and having cold sweats which is concerning for opioid withdrawal. Plan: Patient will be placed on IV morphine for pain control and opioid withdrawal Patient will be given IV Ativan for restlessness and agitation associated with opiate withdrawal. (3) Hyponatremia Conclusion/Plan: better, now Na is 134 On presentation patient's sodium is 132 with a chloride of 95. The patient has been having intractable vomiting and appears to be dehydrated. The patient likely has hypovolemic hyponatremia. Patient will be treated with IV fluids and we will continue to monitor his sodium. (4) Hypertension Conclusion/Plan: stable now, continue BP meds treatment On presentation to the emergency department the patient is fairly hypertensive with blood pressure as high as 170/87. Patient states he does not have a history of hypertension. Patient is likely hypertensive secondary to pain from his abdominal pathology and also from distress due to opioid withdrawal. We will treat the underlying condition if patient's blood pressure continues to be elevated then we will consider starting him on antihypertensive medication. (5) Liver lesion Conclusion/Plan: pt need outpatient MRI Patient has incidental finding of 2 small hepatic subcentimeter hypodensities which are too small to characterize on CT. These may represent small hepatic cysts or hemangiomas. Liver MRI is recommended for further evaluation by radiologist. Patient will need outpatient MRI depending on results of EGD and biopsies. Qualifiers: Abdominal location: epigastric Qualified Code(s): R10.13 - Epigastric pain
[2017-08-03] MEDS: SODIUM CHLORIDE FLUSH 0.9% 10 ML SYRINGE IVP SCH ×2 (01:28→08:50)
[2017-08-03] MEDS: SUCRALFATE 1 GM/10 ML UDC PO SCH ×2 (06:18→10:05)
[2017-08-03 07:40] VITALS: BP 135/72
[2017-08-03] MEDS: POLYETHYLENE GLYCOL 3350 17 GM PACKET PO SCH (08:39)
[2017-08-03] MEDS: PANTOPRAZOLE 40 MG VIAL IVP SCH (08:50)
[2017-08-03] MEDS: GI COCKTAIL 120 ML BOTTLE PO SCH (08:53)
--- NOTE | 2017-08-03 09:01 | Discharge Plan ---
Discharge Plan Disposition: 01 Home, Self Care Condition: Stable Prescriptions: Omeprazole 40 mg PO DAILY #7 capsule. Sucralfate [Carafate] 1 gm PO TID #20 tablet Diet: Regular Activity Restrictions: Activity as Tolerated Shower Restrictions: No Driving Restrictions: No Weight Bearing: Full Weight Instruction Topics: Omeprazole tablets OTC, Sucralfate tablets, Gastric Duodenal Ulcer Ch, Gastric Ulcer Additional Instructions or Follow Up instructions: May see PCP in 2-3 days, hold ibuprofen, see Dr. Elpidio Barrow in one month. Should symptoms return or worsen, may present to ER or call 911 for help. No Smoking: If you smoke, Please STOP! Call for help. Follow-up with: Deya Bedoya MD [Primary Care Provider] -
--- NOTE | 2017-08-03 09:07 | DISCHARGE SUMMARY ---
"Discharge Summary Discharge Date: 08/03/17 Discharging Provider: MOBLEY Primary Care Provider: Deya Suh Condition at Discharge: Stable Discharge Disposition: 01 Home, Self Care Discharge Facility Name: home - DIAGNOSES Admission Diagnoses: (1) Abdominal pain (2) Chronic pain (3) Hyponatremia (4) Hypertension (5) Liver lesion Discharge Diagnoses with Status of Each Condition: (1) Abdominal pain resolved. (2) gastric ulcer In EGD, pt was found multiple gastric ulcer. Pt is prescribed omeprazole and Carafate. pt is advised to hold Ibuprofen, follow up PCP closely, and follow up Dr. Barrow in one month. (3) Chronic pain Discuss with pt for his this long time issue, advise pt gradually reduce pain medication as needed until ceased. Pt agree it. I also advise pt follow up PCP closely and discuss this issue with his PCP. (4) Hyponatremia Na is 134 today, closely to normal 135 (5) Hypertension stable. (6) Liver lesion discuss with pt the finding 2 small hepatic subcentimeter hypodensities which are indeterminate, may represent small hetatic cysts or hemangiomas. I advise pt discuss with his PCP, and may have out-pt MRI, May follow up Dr. Barrow for the biopsy. - HPI History of Present Illness: refer from Dr. Reyes's HPI on 08/01/17 as the following: Patient is a 52-year-old gentleman with a past medical history significant for chronic low back pain and bilateral shoulder pain from previous sports related injuries currently on oxycodone and NSAIDs for treatment who presented to the emergency department with a chief complaint of abdominal pain. The patient states that he was in his normal state of health until 5 days ago when he began to develop flulike symptoms. He states that he had chills and noticed that he had a scratchy throat after he smoked a cigarette. He states he came to the emergency department 2 days ago with complaint of flulike symptoms. At that time the patient was treated with Toradol and discharged home on dexamethasone and naproxen. The patient states that he did not fill either of those scripts and did not take that medication. He states that after getting IV Zofran in the emergency department that his abdomen began to hurt. He states that he could not keep anything down. He states that he had violent intractable vomiting throughout the day yesterday. He states that after the vomiting he began to have severe pain which continued to worsen until he had another episode of vomiting. He states he continues to have episodic abdominal pain that seems to worsen to the point where it causes him to vomit and then he has some relief of the pain but then it starts back up again. He states that this has been occurring since yesterday and has gotten to a point where he states that he cannot tolerate it anymore. The patient states that he is normally on 10 mg of oxycodone 4 times a day however over the last 2 days because of his vomiting he has been not been able to keep down the oxycodone. He states that as a result he believes he is having some withdrawal symptoms as he feels very restless and has been having cold sweats. The patient denies any fevers and states his flulike symptoms seem to have improved. The patient denies any black or bloody stools. The patient does admit to using ibuprofen 800 mg up to 3 times a day prior to 2 days ago for his chronic pain. He states that he also would take Aleve intermittently in the past. The patient also admits to smoking cigarettes he states he does not smoke more than 4 cigarettes a day. The patient denied any alcohol use. The patient denied any diarrhea. The patient states that his abdominal pain is located in the epigastric area and goes down to his umbilicus. He denies any radiation of the abdominal pain. The patient states in the past he has received cortisone injections in his back but this was several years ago. The patient states that he has had decreased appetite and has not had anything to eat for the last 2 days. Patient denies any headaches, blurred vision, runny nose, sore throat, nasal congestion, cough, difficulty swallowing, chest pain, shortness of air, orthopnea, PND, increased lower extremity swelling, constipation, joint swelling , muscle aches, neck stiffness, recent unintentional weight loss, night sweats or any focal neurologic deficits. The patient also denies any urinary urgency frequency or dysuria. On presentation to the emergency department the patient was afebrile, hypertensive and mildly tachypneic. The patient however was saturating well on room air. He did appear to be in some significant distress as he was writhing around in the bed. The patient appeared to be restless and agitated. It was difficult for the emergency room staff to get detailed history from the patient because he just seemed to be very uncomfortable. On exam the patient appeared to have significant tenderness in the epigastric area and lab work showed a mild leukocytosis of 12.1. The patient's lipase was normal and his LFTs were within normal limits. Patient had a normal urine analysis. The patient underwent a CT scan of his abdomen and pelvis which revealed severe wall thickening of the gastric antrum, pylorus, and first through third parts of the duodenum with associated mucosal hyperenhancement which was of unclear etiology. It likely represented nonspecific gastritis and proximal duodenitis without any evidence of an ulcer. There was no discrete mass lesion but an infiltrative malignancy such as lymphoma could not be excluded. The radiologist recommended a consultation for endoscopy. There was also finding of 2 small hepatic subcentimeter hypodensities which were too small to characterize but could represent small hepatic cysts or hemangiomas. The radiologist also recommended a liver MRI at some point. Given the patient's severe pain and inability to tolerate anything orally the patient was placed in observation for pain control, treatment of gastritis and opioid withdrawal. - CONSULTS | PROCEDURES Consultations: Dr. Barrow Procedures: EGD - HOSPITAL COURSE Hospital Course: pt was admitted for abdominal pain. CT of abdomen reveals severe wall thickening of the gastric antrum, pylorus. Pt had EGD which reveals pt had multiple gastric ulcer. Pt was treated IV protonic, carafate, pain control. Then pt's abdominal pain is resolved. pt request to be d/c to home today. pt was prescribed Omeprazole, carafate, advise to hold Ibuprofen, continue home medication except of Ibuprofen. - ALLERGIES Allergies/Adverse Reactions: Allergies Allergy/AdvReac Type Severity Reaction Status Date / Time No Known Drug Allergies Allergy Verified 08/01/17 18:45 - MEDICATIONS Home Medications: Ambulatory Orders Medication Instructions Recorded Confirmed oxyCODONE [Roxicodone] 10 mg PO QID PRN 07/30/17 08/02/17 Omeprazole 40 mg PO DAILY #7 capsule. 08/03/17 Sucralfate [Carafate] 1 gm PO TID #20 tablet 08/03/17 - PHYSICAL EXAM AT DISCHARGE General Appearance: positive: No acute distress, Alert. negative: Lethargic Eyes Bilateral: positive: Normal inspection, PERRL, No lid inflammation, Conjunctivae nml ENT: positive: ENT inspection nml, Pharynx nml, No signs of dehydration. negative: Purulent nasal drainage, Pharyngeal erythema, Oral lesions Neck: positive: Nml inspection, Thyroid nml, No JVD, Trachea midline. negative : Thyromegaly, Lymphadenopathy (R), Lymphadenopathy (L), Stiff neck, Carotid bruit, Swelling/bruising, Tracheal deviation Respiratory: positive: Chest non-tender, No respiratory distress, Breath sounds nml. negative: Wheezes, Rales, Rhonchi Cardiovascular: positive: Regular rate & rhythm, No murmur, No gallop. negative : Irregularly irregular, Extrasystoles, Tachycardia, Bradycardia, Systolic murmur, Diastolic murmur Peripheral Pulses: positive: 2+ Abdomen: positive: Non-tender, No organomegaly, Nml bowel sounds, No distention. negative: Tenderness, Guarding, Rebound, Abnml bowel sounds Back: positive: Nml inspection. negative: CVA tenderness (R), CVA tenderness (L ) Skin: positive: Color nml, No rash, Warm, Dry. negative: Cyanosis, Diaphoresis , Pallor Extremities: positive: Non-tender, Full ROM, Nml appearance. negative: Calf tenderness, Joint swelling, Isabella's sign/cords Neurologic/Psychiatric: positive: Oriented x3, Motor nml, Sensation nml, Mood/ affect nml. negative: Sensory loss, Facial droop, Slurred/abnml speech, Depressed mood/affect - LABS Result Diagrams: 08/02/17 05:45 08/02/17 05:45 - FOLLOW UP Follow Up: May see PCP in 2-3 days, hold ibuprofen, see Dr. Elpidio Barrow in one month. Should symptoms return or worsen, may present to ER or call 911 for help."
== END 2017-08-03 10:21 | disposition home or self-care (01) ==
LOC: ED 18:36 → OBS 21:13
PROVIDERS: ADMIT Internal Medicine; ATTEND Nurse Practitioner Gerontology
PROC: 0DB68ZX Excision of Stomach, Via Natural or Artificial Opening Endoscopic, Diagnostic (ICD-10-PCS; 2017-08-02)
PROC: 0DB98ZX Excision of Duodenum, Via Natural or Artificial Opening Endoscopic, Diagnostic (ICD-10-PCS; principal; 2017-08-02 10:00)
DX: K26.9 Duodenal ulcer, unspecified as acute or chronic, without hemorrhage or perforation (principal); K29.70 Gastritis, unspecified, without bleeding; K44.9 Diaphragmatic hernia without obstruction or gangrene; G89.21 Chronic pain due to trauma; E87.1 Hypo-osmolality and hyponatremia; I10 Essential (primary) hypertension; K21.9 Gastro-esophageal reflux disease without esophagitis; M54.5 Low back pain; M19.112 Post-traumatic osteoarthritis, left shoulder; M19.111 Post-traumatic osteoarthritis, right shoulder; F17.210 Nicotine dependence, cigarettes, uncomplicated; Z79.1 Long term (current) use of non-steroidal anti-inflammatories (NSAID); Z79.891 Long term (current) use of opiate analgesic
CPT/HCPCS: 36415; 43239; 74177; 80053; 81003; 83605; 83690; 83735; 84100; 85025; 96361; 96374; 96375; 96376; 99218; 99283; 99284; A9270; J2060; Q9967; 81001; 83013; 87086; 87338

== ENCOUNTER 2017-12-12 08:00 | Outpatient (CLI) | payer OTHER | END 2017-12-12 08:01 | disposition home or self-care (01) | LOC: LAB.R 08:00 | PROVIDERS: ATTEND Internal Medicine | DX: J02.9 Acute pharyngitis, unspecified (principal) | CPT/HCPCS: 87070; 87430 ==

== ENCOUNTER 2018-02-03 10:32 | Emergency (ER) | payer OTHER ==
[2018-02-03] MEDS ORDERED: KETOROLAC 30 MG/ML VIAL ONE (10:45)
[2018-02-03] MEDS ORDERED: SODIUM CHLORIDE 0.9% 1,000 ML IV ONE ×2 (10:49→13:02)
[2018-02-03] MEDS ORDERED: KETOROLAC 60 MG/2 ML VIAL IVP STA (10:50)
--- NOTE | 2018-02-03 10:52 | ED Physician Documentation ---
PD HPI ABD PAIN - Stated complaint Stated Complaint: RIGHT SIDE PX - Chief complaint Chief Complaint: Abd Pain - History obtained from History obtained from: Patient, Family - History of Present Illness Timing - onset: Today Timing - duration: Minutes Timing - details: Abrupt onset, Still present Quality: Sharp, Pain Location: RUQ Radiation: Right flank Improved by: Other (nothing) Worsened by: Other (nothing) Associated symptoms: No: Fever, Nausea, Vomiting, Hematemesis, Diarrhea, Constipation Similar symptoms before: Has not had sx before Recently seen: Not recently seen - Additional information Additional information: Previously healthy 52-year-old male has developed some pain in his back on the right side. This started about 2 weeks ago and was off and on the patient thought this was a muscle pull and then this morning the pain became severe and unrelenting. He has come to the emergency department this morning and is pacing in the department with severe pain. Review of Systems Constitutional: denies: Fever Eyes: denies: Decreased vision Ears: denies: Ear pain Nose: denies: Congestion Throat: denies: Sore throat Cardiac: denies: Chest pain / pressure Respiratory: denies: Dyspnea, Cough GI: reports: Abdominal Pain, Nausea. denies: Vomiting, Constipation, Diarrhea : denies: Dysuria, Frequency Skin: denies: Rash Musculoskeletal: reports: Back pain. denies: Neck pain, Extremity pain PD PAST MEDICAL HISTORY - Past Medical History Cardiovascular: None Respiratory: None Endocrine/Autoimmune: None GI: None : None HEENT: None Psych: None Musculoskeletal: None Derm: None - Past Surgical History Past Surgical History: No - Present Medications Home Medications: Ambulatory Orders Medication Instructions Recorded Confirmed oxyCODONE [Roxicodone] 10 mg PO QID PRN 07/30/17 08/02/17 Omeprazole 40 mg PO DAILY #7 capsule. 08/03/17 Sucralfate [Carafate] 1 gm PO TID #20 tablet 08/03/17 Cyclobenzaprine [Flexeril] 10 mg PO TID PRN #20 tablet 02/03/18 - Allergies Allergies/Adverse Reactions: Allergies Allergy/AdvReac Type Severity Reaction Status Date / Time No Known Drug Allergies Allergy Verified 08/01/17 18:45 - Social History Does the pt smoke?: Yes Smoking Status: Current every day smoker Does the pt drink ETOH?: No Does the pt have substance abuse?: No - Immunizations Immunizations are current?: No Immunizations: Other immun not current - POLST Patient has POLST: No POLST Status: Full Code PD ED PE NORMAL - Vitals Vital signs reviewed: Yes (hypertensive ) - General General: Alert and oriented X 3, Well developed/nourished, Other (The patient is hopping around in the ED and crying in pain ) - HEENT HEENT: Atraumatic, PERRL, EOMI - Neck Neck: Supple, no meningeal sign, No bony TTP - Cardiac Cardiac: RRR, No murmur - Respiratory Respiratory: No respiratory distress, Clear bilaterally - Abdomen Abdomen: Soft, Non tender - Back Back: No CVA TTP, No spinal TTP - Derm Derm: Normal color, Warm and dry, No rash - Extremities Extremities: No deformity, No edema - Neuro Neuro: Alert and oriented X 3, No motor deficit, No sensory deficit, Normal speech Eye Opening: Spontaneous Motor: Obeys Commands Verbal: Oriented GCS Score: 15 - Psych Psych: Normal mood, Normal affect Results - Vitals Vitals: Vital Signs - 24 hr 02/03/18 02/03/18 02/03/18 10:35 11:28 13:10 Temperature 36.8 C Heart Rate 75 71 52 L Respiratory 20 20 18 Rate Blood Pressure 156/100 H 177/92 H 160/88 H O2 Saturation 99 100 55 L Oxygen O2 Source Room air - Labs Labs: Laboratory Tests 02/03/18 02/03/18 02/03/18 10:41 10:41 11:20 WBC 6.8 RBC 5.29 Hgb 15.0 Hct 44.3 MCV 83.8 MCH 28.4 MCHC 33.9 RDW 13.9 Plt Count 231 MPV 7.1 L Neut # (Auto) 4.1 Lymph # (Auto) 1.7 [place] # (Auto) 0.6 Eos # (Auto) 0.3 Baso # (Auto) 0.1 Absolute Nucleated RBC 0.01 Nucleated RBC % 0.1 Sodium 134 L Potassium 4.1 Chloride 100 L Carbon Dioxide 26 Anion Gap 8.0 BUN 15 Creatinine 1.1 Estimated GFR (MDRD) 70 L Glucose 119 H Calcium 9.4 Total Bilirubin 0.6 AST 25 ALT 21 Alkaline Phosphatase 61 Total Protein 7.7 Albumin 4.3 Globulin 3.4 Albumin/Globulin Ratio 1.3 Lipase 26 Urine Color YELLOW Urine Clarity CLEAR Urine pH 8.0 H Ur Specific [place] 1.015 Urine Protein NEGATIVE Urine Glucose (UA) NEGATIVE Urine Ketones NEGATIVE Urine Occult Blood NEGATIVE Urine Nitrite NEGATIVE Urine Bilirubin NEGATIVE Urine Urobilinogen 0.2 (NORMAL) Ur Leukocyte Esterase NEGATIVE Ur Microscopic Review NOT INDICATED Urine Culture Comments NOT INDICATED - Rads (name of study) CT abd/pel without Radiology: Prelim report reviewed (Impression: 1. No renal calcifications. No hydronephrosis. Stable subcentimeter densities left kidney too small to characterize. 2 stable subcentimeter densities in the liver too small to characterize.), EMP read indepedently, See rad report Procedures - Bedside sono Bedside sono by EMP: With use of bedside ultrasound the right kidney is imaged there is evidence of hydronephrosis and the kidney is sonographically nontender. - IVC sono (time) 1300 Bedside IVC sono: IVC measures (cm) (0.98), IVC collapsed c insp (cm) (complete) , Dehydration (est 1 liter deficit after one liter given.) PD MEDICAL DECISION MAKING - ED course Complexity details: reviewed old records, reviewed results, re-evaluated patient , considered differential, d/w patient, d/w family ED course: 52-year-old male with acute right flank pain appears quite uncomfortable when he arrives into the emergency department and any movement he makes seems to make his pain worse. He is evaluated for kidney stone and CT scan is without findings. 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 This morning he went to make a simple movement to put his arm behind himself to wipe while he was on the commode and this is when the pain became completely intolerant. His case is consistent with acute muscle spasm as a cause for his pain. He was administered a liter of fluid in his initial management and following that his inferior vena cava is interrogated and found to be deficient at least 1 L. This indicates that he was previously significantly dehydrated with a 2 L deficit and I suspect this may be the reason his spasm became significantly worse. He has had some pain improvement with the fluids and Dilaudid and Toradol. We will provide a second liter of saline and Flexeril. He does have Percocet at home that he uses on a regular basis. - Sepsis Event Vital Signs: Vital Signs - 24 hr 02/03/18 02/03/18 02/03/18 10:35 11:28 13:10 Temperature 36.8 C Heart Rate 75 71 52 L Respiratory 20 20 18 Rate Blood Pressure 156/100 H 177/92 H 160/88 H O2 Saturation 99 100 55 L Oxygen O2 Source Room air Departure - Departure Disposition: 01 Home, Self Care Clinical Impression: Dehydration, Muscle spasm of back Condition: Stable Instructions: ED Dehydration, ED Spasm Back No Trauma Follow-Up: Deya Bedoya MD [Primary Care Provider] - Prescriptions: Cyclobenzaprine [Flexeril] 10 mg PO TID PRN #20 tablet PRN Reason: Spasms
[2018-02-03 11:05] LABS: ALBUMIN 4.3 g/dL (3.2-5.5); ALBUMIN/GLOBULIN RATIO 1.3 (1.0-2.2); BILIRUBIN,TOTAL 0.6 mg/dL (0.2-1.0); CALCIUM 9.4 mg/dL (8.5-10.3); CREATININE 1.1 mg/dL (0.6-1.2); TOTAL PROTEIN 7.7 g/dL (6.7-8.2)
[2018-02-03 11:06] LABS: BASOPHILS # (AUTO) 0.1 10^3/uL (0.0-0.1); BASOPHILS % (AUTO) 1.1 %; EOSINOPHILS # (AUTO) 0.3 10^3/uL (0.0-0.7); EOSINOPHILS % (AUTO) 4.6 %; LYMPHOCYTES # (AUTO) 1.7 10^3/uL (1.5-3.5); LYMPHOCYTES % (AUTO) 25.1 %; MEAN CORPUSCULAR HEMOGLOBIN 28.4 pg (27.0-31.0); MEAN CORPUSCULAR HGB CONC 33.9 g/dL (32.0-36.0); MEAN CORPUSCULAR VOLUME 83.8 fL (80.0-94.0); MEAN PLATELET VOLUME 7.1 fL (7.4-11.4); MONOCYTES # (AUTO) 0.6 10^3/uL (0.0-1.0); MONOCYTES % (AUTO) 8.4 %; NEUTROPHILS # (AUTO) 4.1 10^3/uL (1.5-6.6); NEUTROPHILS % (AUTO) 60.8 %; PLT - PLATELET COUNT 231 10^3/uL (130-450); RED BLOOD COUNT 5.29 10^6/uL (4.70-6.10); RED CELL DISTRIBUTION WIDTH 13.9 % (12.0-15.0); WHITE BLOOD COUNT 6.8 x10^3/uL (4.8-10.8)
[2018-02-03] MEDS ORDERED: ONDANSETRON 4 MG/2 ML VIAL IVP STA (11:19)
[2018-02-03] MEDS ORDERED: HYDROmorphone 1 MG/ML CARPUJECT IVP STA (11:19)
--- NOTE | 2018-02-03 11:25 | CT Report ---
Reason: R flank pain hydro on bedside. Procedure Date: 02/03/2018 Accession Number: [id number] / [id number] Procedure: CT - Abdomen/Pelvis W/O CPT Code: FULL RESULT: EXAM: CT ABDOMEN AND PELVIS EXAM DATE: 02/03/2018 11:10 AM. CLINICAL HISTORY: R flank pain hydro on bedside. COMPARISONS: 08/01/2017. TECHNIQUE: Routine helical CT imaging was performed through the abdomen and pelvis. IV contrast: None. Enteric contrast: No. Reconstructions: Coronal and sagittal. In accordance with CT protocol optimization, one or more of the following dose reduction techniques were utilized for this exam: automated exposure control, adjustment of mA and/or KV based on patient size, or use of iterative reconstructive technique. FINDINGS: Lung Bases: Unremarkable. Liver: Subcentimeter densities too small to characterize similar Gallbladder/Bile Ducts: Unremarkable. Spleen: Normal. Pancreas: Normal. Adrenal Glands: Normal. Kidneys: No renal calcifications. No hydronephrosis. Subcentimeter densities left kidney too small to characterize stable. Peritoneal Cavity/Bowel: Small fat-containing umbilical hernia No free fluid, free air or adenopathy. No masses or acute inflammatory process. The appendix is well visualized and normal. Pelvic Organs: Normal. The bladder and visualized pelvic organs are within normal limits. Vasculature: No aneurysms or other significant abnormality. Bones: No significant abnormality. Other: None. IMPRESSION: 1. No renal calcifications. No hydronephrosis. Stable subcentimeter densities left kidney too small to characterize. 2. Stable Subcentimeter densities in the liver too small to characterize RADIA
[2018-02-03 11:31] LABS: BILIRUBIN,URINE NEGATIVE (NEGATIVE); GLUCOSE, URINE (UA) NEGATIVE (NEGATIVE); KETONES,URINE (UA) NEGATIVE (NEGATIVE); LEUKOCYTE ESTERASE, URINE NEGATIVE (NEGATIVE); NITRITE,URINE NEGATIVE (NEGATIVE); OCCULT BLOOD,URINE NEGATIVE (NEGATIVE); PROTEIN,URINE NEGATIVE (NEGATIVE); UROBILINOGEN,URINE 0.2 (NORMAL) E.U./dL (NORMAL)
[2018-02-03 11:58] LABS: CLARITY,URINE CLEAR (CLEAR)
[2018-02-03] MEDS ORDERED: DEXAMETHASONE 10 MG/ML VIAL IVP STA (13:02)
[2018-02-03 13:11] VITALS: BP 160/88
== END 2018-02-03 13:56 | disposition home or self-care (01) ==
LOC: ED 10:32
DX: E86.0 Dehydration (principal); M62.830 Muscle spasm of back; F17.200 Nicotine dependence, unspecified, uncomplicated
CPT/HCPCS: 36415; 74176; 80053; 81003; 83690; 85025; 96361; 96374; 96375; 99283; J1170; 81001; 87086

== ENCOUNTER 2018-12-03 | Observation (INO) | payer OTHER | END 2018-12-05 13:45 | disposition home or self-care (01) | PROVIDERS: ADMIT Nurse Practitioner Gerontology | PROC: 009U3ZX Drainage of Spinal Canal, Percutaneous Approach, Diagnostic (ICD-10-PCS; principal; 2018-12-04) | DX: F11.23 Opioid dependence with withdrawal (principal); R41.0 Disorientation, unspecified; R45.1 Restlessness and agitation; T42.4X5A Adverse effect of benzodiazepines, initial encounter; Y92.238 Other place in hospital as the place of occurrence of the external cause; K29.80 Duodenitis without bleeding; J18.9 Pneumonia, unspecified organism; E87.6 Hypokalemia; F12.188 Cannabis abuse with other cannabis-induced disorder; R11.2 Nausea with vomiting, unspecified; I10 Essential (primary) hypertension; M54.9 Dorsalgia, unspecified; G89.29 Other chronic pain; Z78.1 Physical restraint status; Z72.0 Tobacco use | CPT/HCPCS: 36415; 62270; 70450; 71045; 74177; 80048; 80053; 80320; 80329; 81003; 82140; 82607; 82945; 83690; 83735; 84157; 84443; 84484; 85025; 87040; 87070; 87205; 89051; 96361; 96365; 96366; 96367; 96368; 96375; 96376; 99284; 99285; A9270; G0378; J0131; J1650; J2060; J7040; Q9967; 80306; 80307; 81001; 87086 ==

== ENCOUNTER 2018-12-03 03:38 | Outpatient (CLI) | payer OTHER | END 2018-12-03 03:39 | disposition critical access hospital (66) | LOC: EMS 03:38 | PROVIDERS: ATTEND Surgery | DX: R11.2 Nausea with vomiting, unspecified (principal) | CPT/HCPCS: A0425; A0429 ==

== ENCOUNTER 2020-03-11 18:12 | Emergency (ER) | payer OTHER ==
[2020-03-11] MEDS ORDERED: SODIUM CHLORIDE 0.9% 1,000 ML IV STA (18:37)
[2020-03-11] MEDS ORDERED: HALOPERIDOL 5 MG/ML VIAL IVP ONE (18:37)
--- NOTE | 2020-03-11 18:39 | ED Physician Documentation ---
PD HPI NVD - Stated complaint Stated Complaint: NAUSEA,VOMITING - Chief complaint Chief Complaint: Abd Pain - History obtained from History obtained from: Patient - Additonal information Additional information: 54-year-old gentleman became acutely ill today with vomiting, mild stomach discomfort and headache. The vomiting is what bothers him the most. Has had some body aches. No diarrhea. No fevers. No sick contacts that he knows of. He is on Suboxone, and has not missed a dose so does not think he is withdrawing. He also uses cannabis daily, but does not find any relief today from a hot shower or bath with this illness. Review of Systems Ten Systems: 10 systems reviewed and negative Constitutional: reports: Sweats Cardiac: denies: Chest pain / pressure, Palpitations Respiratory: denies: Dyspnea, Cough GI: reports: Abdominal Pain, Nausea, Vomiting. denies: Diarrhea PD PAST MEDICAL HISTORY - Past Medical History Cardiovascular: None Respiratory: None Endocrine/Autoimmune: None GI: None : None HEENT: None Psych: None Musculoskeletal: Chronic back pain Derm: None - Past Surgical History Past Surgical History: No - Present Medications Home Medications: Ambulatory Orders Medication Instructions Recorded Confirmed Amox/Clav 875/125 [Augmentin] 1 each PO Q12H #14 tablet 12/05/18 Naproxen Sodium [Aleve] 220 mg PO BID PRN 12/05/18 12/05/18 Ondansetron HCl [Zofran] 4 mg PO Q6H PRN #15 tablet 12/05/18 Saccharomyces Boulardii [Florastor] 250 mg PO DAILY #7 capsule 12/05/18 amLODIPine [Norvasc] 5 mg PO DAILY #10 tablet 12/05/18 Ondansetron Odt [Zofran] 4 mg TL Q6H PRN #10 tablet 03/11/20 - Allergies Allergies/Adverse Reactions: Allergies Allergy/AdvReac Type Severity Reaction Status Date / Time No Known Drug Allergies Allergy Verified 03/11/20 18:19 - Social History Does the pt smoke?: No Smoking Status: Never smoker Does the pt drink ETOH?: No Does the pt have substance abuse?: Yes - Immunizations Immunizations are current?: No Immunizations: Other immun not current - POLST Patient has POLST: No POLST Status: Full Code PD ED PE NORMAL - Vitals Vital signs reviewed: Yes - General General: Alert and oriented X 3, Other (Appears uncomfortable and retching) - HEENT HEENT: PERRL, EOMI - Neck Neck: Supple, no meningeal sign, No bony TTP - Cardiac Cardiac: RRR, No murmur - Respiratory Respiratory: No respiratory distress, Clear bilaterally - Abdomen Abdomen: Normal bowel sounds, Soft, Non tender - Back Back: No CVA TTP, No spinal TTP - Derm Derm: Normal color, Warm and dry - Extremities Extremities: No edema, No calf tenderness / cord - Neuro Neuro: Alert and oriented X 3, Normal speech Results - Vitals Vitals: Vital Signs - 24 hr 03/11/20 03/11/20 18:17 19:05 Temperature 37.6 C H Heart Rate 53 L 69 Respiratory 16 18 Rate Blood Pressure 198/84 H 184/85 H O2 Saturation 98 98 Oxygen O2 Source Room air - Labs Labs: Laboratory Tests 03/11/20 03/11/20 03/11/20 18:27 18:46 18:46 WBC 15.5 H RBC 5.62 Hgb 16.2 Hct 48.6 MCV 86.5 MCH 28.8 MCHC 33.3 RDW 13.1 Plt Count 285 MPV 9.0 Neut # (Auto) 14.3 H Lymph # (Auto) 0.6 L [place] # (Auto) 0.5 Eos # (Auto) 0.1 Baso # (Auto) 0.0 Absolute Nucleated RBC 0.00 Nucleated RBC % 0.0 Sodium 140 Potassium 3.6 Chloride 100 L Carbon Dioxide 23 Anion Gap 17.0 H BUN 26 H Creatinine 1.0 Estimated GFR (MDRD) 77 L Glucose 148 H Calcium 10.1 Total Bilirubin 1.3 H AST 26 ALT 21 Alkaline Phosphatase 71 Total Protein 8.3 H Albumin 4.3 Globulin 4.0 Albumin/Globulin Ratio 1.1 Lipase 21 L Urine Opiates Screen NEGATIVE Ur Oxycodone Screen NEGATIVE Urine Methadone Screen NEGATIVE Ur Propoxyphene Screen NEGATIVE Ur Barbiturates Screen NEGATIVE Ur Tricyclics Screen NEGATIVE Ur Phencyclidine Scrn NEGATIVE Ur Amphetamine Screen NEGATIVE U Methamphetamines Scrn NEGATIVE U Benzodiazepines Scrn NEGATIVE Urine Cocaine Screen NEGATIVE U Cannabinoids Screen POSITIVE H Ethyl Alcohol < 5.0 PD MEDICAL DECISION MAKING - ED course ED course: 54-year-old gentleman with nausea and vomiting. Benign exam. Could be cannabinoid hyperemesis but does not feel relief with heat. He was feeling much better after the administration of IV fluids and Haldol and passed an oral challenge. Remained nontender on reevaluation. Departure - Departure Disposition: 01 Home, Self Care Clinical Impression: Nausea & vomiting Qualifiers: Vomiting type: unspecified Vomiting Intractability: non-intractable Qualified Code(s): R11.2 - Nausea with vomiting, unspecified Condition: Good Record reviewed to determine appropriate education?: Yes Instructions: ED Nausea Vomiting Prescriptions: Ondansetron Odt [Zofran] 4 mg TL Q6H PRN #10 tablet PRN Reason: Nausea / Vomiting Comments: As Discussed, marijuana may be the cause of your symptoms, consider not using it. Return if worsening. Follow-up with your doctor regardless.
[2020-03-11 18:40] LABS: MUDS CUTOFF CONCENTRATIONS CUTOFF CONC BELOW:
[2020-03-11 18:58] LABS: AMPHETAMINE SCREEN,URINE NEGATIVE (NEGATIVE); BENZODIAZEPINES SCREEN, URINE NEGATIVE (NEGATIVE); COCAINE SCREEN URINE NEGATIVE (NEGATIVE); METHADONE SCREEN, URINE NEGATIVE (NEGATIVE); METHAMPHETAMINES SCREEN, URINE NEGATIVE (NEGATIVE); OPIATE SCREEN, URINE NEGATIVE (NEGATIVE); OXYCODONE SCREEN, URINE NEGATIVE (NEGATIVE); PROPOXYPHENE SCREEN, URINE NEGATIVE (NEGATIVE); TRICYCLIC ANTIDEPRESSANT,URINE NEGATIVE (NEGATIVE)
[2020-03-11 19:01] LABS: BASOPHILS % (AUTO) 0.2 %; EOSINOPHILS # (AUTO) 0.1 10^3/uL (0.0-0.7); EOSINOPHILS % (AUTO) 0.6 %; HGB - HEMOGLOBIN 16.2 g/dL (14.0-18.0); LYMPHOCYTES # (AUTO) 0.6 10^3/uL (1.5-3.5); LYMPHOCYTES % (AUTO) 3.9 %; MEAN CORPUSCULAR HEMOGLOBIN 28.8 pg (27.0-31.0); MEAN CORPUSCULAR HGB CONC 33.3 g/dL (32.0-36.0); MEAN CORPUSCULAR VOLUME 86.5 fL (80.0-94.0); MONOCYTES # (AUTO) 0.5 10^3/uL (0.0-1.0); MONOCYTES % (AUTO) 2.9 %; NEUTROPHILS # (AUTO) 14.3 10^3/uL (1.5-6.6); NEUTROPHILS % (AUTO) 91.9 %; PLT - PLATELET COUNT 285 10^3/uL (130-450); RED BLOOD COUNT 5.62 10^6/uL (4.70-6.10); RED CELL DISTRIBUTION WIDTH 13.1 % (12.0-15.0); WHITE BLOOD COUNT 15.5 x10^3/uL (4.8-10.8)
[2020-03-11 19:17] LABS: ALBUMIN 4.3 g/dL (3.2-5.5); ALBUMIN/GLOBULIN RATIO 1.1 (1.0-2.2); ALKALINE PHOSPHATASE 71 IU/L (42-121); ALT ALANINE AMINOTRANSFERASE 21 IU/L (10-60); AST ASPARTATE AMINOTRANSFERASE 26 IU/L (10-42); BILIRUBIN,TOTAL 1.3 mg/dL (0.2-1.0); BUN - BLOOD UREA NITROGEN 26 mg/dL (6-20); CALCIUM 10.1 mg/dL (8.5-10.3); CARBON DIOXIDE - CO2 23 mmol/L (21-32); CHLORIDE 100 mmol/L (101-111); GLUCOSE 148 mg/dL (70-100); LIPASE 21 U/L (22-51); SODIUM 140 mmol/L (135-145); TOTAL PROTEIN 8.3 g/dL (6.7-8.2)
[2020-03-11] MEDS ORDERED: LACTATED RINGERS 1,000 ML IV STA (19:33)
[2020-03-11 20:57] VITALS: BP 147/89
== END 2020-03-11 20:57 | disposition home or self-care (01) ==
LOC: ED 18:12
DX: R11.2 Nausea with vomiting, unspecified (principal)
CPT/HCPCS: 36415; 80053; 80306; 80320; 83690; 85025; 96374; 99283; 99284; J7120

== ENCOUNTER 2020-03-15 10:33 | Observation (INO) | payer OTHER ==
[2020-03-15 11:40] LABS: BASOPHILS % (AUTO) 0.2 %; EOSINOPHILS % (AUTO) 0.2 %; HGB - HEMOGLOBIN 16.2 g/dL (14.0-18.0); LYMPHOCYTES # (AUTO) 1.7 10^3/uL (1.5-3.5); LYMPHOCYTES % (AUTO) 13.9 %; MEAN CORPUSCULAR HEMOGLOBIN 28.7 pg (27.0-31.0); MEAN CORPUSCULAR HGB CONC 33.8 g/dL (32.0-36.0); MEAN CORPUSCULAR VOLUME 85.1 fL (80.0-94.0); MEAN PLATELET VOLUME 9.3 fL (7.4-11.4); MONOCYTES # (AUTO) 0.9 10^3/uL (0.0-1.0); MONOCYTES % (AUTO) 7.7 %; NEUTROPHILS # (AUTO) 9.3 10^3/uL (1.5-6.6); NEUTROPHILS % (AUTO) 77.5 %; PLT - PLATELET COUNT 285 10^3/uL (130-450); RED BLOOD COUNT 5.64 10^6/uL (4.70-6.10); RED CELL DISTRIBUTION WIDTH 12.6 % (12.0-15.0)
[2020-03-15] MEDS ORDERED: LIDOCAINE VISCOUS 2% 15 ML UDC MM STA (11:43)
[2020-03-15] MEDS ORDERED: METOCLOPRAMIDE 10 MG/2 ML VIAL IVP STA (11:43)
[2020-03-15] MEDS ORDERED: SODIUM CHLORIDE 0.9% 1,000 ML IV STA ×2 (11:43→11:47)
[2020-03-15] MEDS ORDERED: MAGNESIUM HYDROXIDE 2,400 MG/30 ML UDC PO STA (11:44)
--- NOTE | 2020-03-15 11:47 | ED Physician Documentation ---
History of Present Illness - Stated complaint Stated Complaint: VOMITING/NOT EATING - Chief complaint Chief Complaint: Abd Pain - Additonal information Additional information: 54-year-old male returns to the emergency department for evaluation of persistent nausea and vomiting. This gentleman was seen here on the 16 of this month. At that time he had had a few days of uncontrolled vomiting. He did report fairly habitual pot use and at the time the presumptive diagnosis was cannabis hyperemesis. However since being discharged the patient has had fairly persistent nausea. For the last 2 days he has only vomited once or twice but in the preceding 2 days before that he vomited about 8 times a day on average. He reports that a number of years ago he had an EGD and was diagnosed with some tears that could have been corrected surgically. However he did not follow-up on surgical recommendations. He also reports a history of Suboxone use. He was taking an 8 mg strip of Suboxone daily but recently cut back to 4 mg as he thoug ht that he did not need 8. He denies alcohol use. No cannabis use since being seen in the emergency department. He denies lower abdominal pain dysuria hematuria. No melena or hematemesis. He reports that he feels weak and feels like he will faint when he ambulates. He denies chest pain or dyspnea pmh: substance abuse (denies htn, dm) soc: hx of opoid addiction on suboxone; denies etoh, tobacco meds; suboxone 8 mg film SL daily (has recently been taking 1/2 dose) Review of Systems Constitutional: reports: Fatigue Eyes: reports: Reviewed and negative Ears: reports: Reviewed and negative Throat: reports: Reviewed and negative Cardiac: reports: Reviewed and negative Respiratory: reports: Reviewed and negative GI: reports: Abdominal Pain, Nausea, Vomiting. denies: Abdominal Swelling, Constipation, Diarrhea, Hematemesis : denies: Dysuria, Frequency, Hematuria Skin: reports: Reviewed and negative Musculoskeletal: reports: Reviewed and negative Neurologic: reports: Near syncope. denies: Generalized weakness, Focal weakness, Syncope, Seizure, Altered mental status, Headache, Head injury Psychiatric: denies: Depressed, Suicidal Endocrine: denies: Polydypsia, Polyuria, Polyphagia, Weight loss PD PAST MEDICAL HISTORY - Past Medical History Cardiovascular: None Respiratory: None Endocrine/Autoimmune: None GI: None : None HEENT: None Psych: None Musculoskeletal: Chronic back pain Derm: None - Past Surgical History Past Surgical History: No - Present Medications Home Medications: Ambulatory Orders Medication Instructions Recorded Confirmed Amox/Clav 875/125 [Augmentin] 1 each PO Q12H #14 tablet 12/05/18 Naproxen Sodium [Aleve] 220 mg PO BID PRN 12/05/18 12/05/18 Ondansetron HCl [Zofran] 4 mg PO Q6H PRN #15 tablet 12/05/18 Saccharomyces Boulardii [Florastor] 250 mg PO DAILY #7 capsule 12/05/18 amLODIPine [Norvasc] 5 mg PO DAILY #10 tablet 12/05/18 Ondansetron Odt [Zofran] 4 mg TL Q6H PRN #10 tablet 03/11/20 - Allergies Allergies/Adverse Reactions: Allergies Allergy/AdvReac Type Severity Reaction Status Date / Time No Known Drug Allergies Allergy Verified 03/15/20 10:43 - Social History Does the pt smoke?: No Smoking Status: Never smoker Does the pt drink ETOH?: No Does the pt have substance abuse?: Yes - Immunizations Immunizations are current?: No Immunizations: Other immun not current - POLST Patient has POLST: No POLST Status: Full Code PD ED PE EXPANDED - General General: Alert, No acute distress - Neck Neck: Supple w/out meningeal sx. No: Adenopathy - Cardiac Cardiac: Regular Rate, Regular Rhythm, Radial strong equal, Pedal strong equal, Cap refill < 2 sec. No: Murmur Present - Respiratory Respiratory: Clear to ausultation ralph. No: Distress, Labored - Abdomen Abdomen: Normal Bowel sounds, Tender to palpation, Epigastric (Mild epigastric tenderness without rebound or guarding. Negative Estrada's, negative McBurney's and psoas.). No: Distended, Rebound, Guarding - Derm Derm: Warm and dry. No: Normal color, Rash - Extremities Extremities: Normal - GCS Eye Opening: Spontaneous Motor: Obeys Commands Verbal: Oriented Total: 15 - Psych Psych: Normal Results - Vitals Vitals: Vital Signs - 24 hr 03/15/20 03/15/20 10:44 11:22 Temperature 36.8 C 37 C Heart Rate 57 L 59 L Respiratory 18 16 Rate Blood Pressure 127/77 164/93 H O2 Saturation 99 100 Oxygen O2 Source Room air - EKG (time done) 1154 Rate: Rate (enter#) (56) Rhythm: NSR [place]: Normal Intervals: Normal [place] QRS: Normal Ischemia: Normal ST segments Compare to prior EKG: Old EKG unavailable - Labs Labs: Laboratory Tests 03/15/20 03/15/20 03/15/20 11:30 11:30 11:30 WBC 12.0 H RBC 5.64 Hgb 16.2 Hct 48.0 MCV 85.1 MCH 28.7 MCHC 33.8 RDW 12.6 Plt Count 285 MPV 9.3 Neut # (Auto) 9.3 H Lymph # (Auto) 1.7 [place] # (Auto) 0.9 Eos # (Auto) 0.0 Baso # (Auto) 0.0 Absolute Nucleated RBC 0.00 Nucleated RBC % 0.0 Sodium 134 L Potassium 3.6 Chloride 98 L Carbon Dioxide 24 Anion Gap 12.0 BUN 39 H Creatinine 1.1 Estimated GFR (MDRD) 69 L Glucose 105 H Calcium 9.2 Total Bilirubin 1.6 H AST 17 ALT 18 Alkaline Phosphatase 66 Troponin I High Sens 78.8 H* Total Protein 7.7 Albumin 4.0 Globulin 3.7 Albumin/Globulin Ratio 1.1 Lipase 20 L Urine Color Urine Clarity Urine pH Ur Specific [place] Urine Protein Urine Glucose (UA) Urine Ketones Urine Occult Blood Urine Nitrite Urine Bilirubin Urine Urobilinogen Ur Leukocyte Esterase Urine RBC Urine WBC Ur Squamous Epith Cells Urine Bacteria Urine Mucus Ur Microscopic Review Urine Culture Comments 03/15/20 11:42 WBC RBC Hgb Hct MCV MCH MCHC RDW Plt Count MPV Neut # (Auto) Lymph # (Auto) [place] # (Auto) Eos # (Auto) Baso # (Auto) Absolute Nucleated RBC Nucleated RBC % Sodium Potassium Chloride Carbon Dioxide Anion Gap BUN Creatinine Estimated GFR (MDRD) Glucose Calcium Total Bilirubin AST ALT Alkaline Phosphatase Troponin I High Sens Total Protein Albumin Globulin Albumin/Globulin Ratio Lipase Urine Color DARK YELLOW Urine Clarity CLEAR Urine pH 7.0 Ur Specific [place] 1.020 Urine Protein NEGATIVE Urine Glucose (UA) NEGATIVE Urine Ketones >=80 H Urine Occult Blood SMALL H Urine Nitrite NEGATIVE Urine Bilirubin NEGATIVE Urine Urobilinogen 1 (NORMAL) Ur Leukocyte Esterase NEGATIVE Urine RBC 6-10 H Urine WBC 0-3 Ur Squamous Epith Cells NONE SEEN Urine Bacteria Rare Urine Mucus Moderate Strands Ur Microscopic Review INDICATED Urine Culture Comments NOT INDICATED PD MEDICAL DECISION MAKING - ED course Complexity details: reviewed old records, reviewed results, re-evaluated patient, considered differential, d/w patient, d/w [employer] consultant ED course: 54-year-old male presents to the emergency department with uncontrolled nausea and vomiting. Seen 4 days ago for similar. At that time thought to be secondary to hyper and misses cannabis. On exam today patient appeared to very nauseated and reported near syncope with ambulation though he denied chest pain or shortness of breath. - On initial presentation his EKG was sinus bradycardia without ischemic changes. The first high-sensitivity troponin however was 78.8. 324 mg of aspirin was administered. - His lab values today show a mild leukocytosis though improved from recent visit. However he does appear dehydrated with an elevated BUN and slightly rising creatinine. We have administered 2 L of IV fluids. An abdominal ultrasound is pending for evaluation of possible biliary colic as his total bili is 1.6, though his abdominal exam is relatively benign with a negative Estrada's and no rebound or guarding - I have discussed this case with day hospitalist Yasemin Talamantes who has agreed to bring the patient in for observation and further evaluation of his elevated troponin and likely stress test. Departure - Departure Disposition: ED Place in Observation Clinical Impression: Elevated troponin, History of opioid abuse Nausea & vomiting Qualifiers: Vomiting type: unspecified Vomiting Intractability: non-intractable Qualified Code(s): R11.2 - Nausea with vomiting, unspecified
[2020-03-15 11:50] LABS: ALBUMIN/GLOBULIN RATIO 1.1 (1.0-2.2); BILIRUBIN,TOTAL 1.6 mg/dL (0.2-1.0); CALCIUM 9.2 mg/dL (8.5-10.3); CREATININE 1.1 mg/dL (0.6-1.2); TOTAL PROTEIN 7.7 g/dL (6.7-8.2)
[2020-03-15 11:54] LABS: GLUCOSE, URINE (UA) NEGATIVE (NEGATIVE); KETONES,URINE (UA) >=80 mg/dL (NEGATIVE); LEUKOCYTE ESTERASE, URINE NEGATIVE (NEGATIVE); NITRITE,URINE NEGATIVE (NEGATIVE); OCCULT BLOOD,URINE SMALL (NEGATIVE); PROTEIN,URINE NEGATIVE (NEGATIVE); UROBILINOGEN,URINE 1 (NORMAL) E.U./dL (NORMAL)
[2020-03-15 12:00] LABS: CLARITY,URINE CLEAR (CLEAR)
[2020-03-15 12:01] LABS: BILIRUBIN,URINE NEGATIVE (NEGATIVE); ICTOTEST,URINE NEGATIVE
[2020-03-15 12:09] LABS: BACTERIA,URINE Rare /HPF (None Seen); MUCUS,URINE Moderate Strands; SQUAMOUS EPITHELIAL CELL,UR NONE SEEN (<= Few)
[2020-03-15] MEDS ORDERED: ASPIRIN 325 MG TABLET PO STA (12:27)
--- NOTE | 2020-03-15 12:52 | XRAY Report ---
PROCEDURE: Chest 1 View X-Ray INDICATIONS: Chest pain TECHNIQUE: One view of the chest was acquired. COMPARISON: 12/03/2018 FINDINGS: Surgical changes and devices: None. Lungs and pleura: No pleural effusions or pneumothorax. Lungs are clear. Mediastinum: Mediastinal contours appear normal. Heart size is normal. Bones and chest wall: No suspicious bony lesions. Overlying soft tissues appear unremarkable. IMPRESSION: No acute process or other significant abnormality. Reviewed by: Clayton Pastor MD on 03/15/2020 12:51 PM PDT Approved by: Clayton Pastor MD on 03/15/2020 12:51 PM PDT Station ID: [id number]
[2020-03-15] MEDS ORDERED: SODIUM CHLORIDE FLUSH 0.9% 10 ML SYRINGE IVP PRN (14:16)
[2020-03-15] MEDS ORDERED: ACETAMINOPHEN 325 MG TABLET PO PRN (14:16)
--- NOTE | 2020-03-15 14:31 | Ultrasound Report ---
PROCEDURE: Abdomen Limited INDICATIONS: n/v. r/o biliary obstruction TECHNIQUE: Real-time scanning was performed of the abdominal and retroperitoneal organs, with image documentatio n. COMPARISON: CT abdomen and pelvis dated 12/05/2018 and 02/03/2018. FINDINGS: Liver: Liver is normal in size and homogeneous in echotexture. There are 2 echogenic lesions within the mid right hepatic lobe measuring 2.5 x 0.8 x 2.0 cm and 3.6 x 1.9 x 3.4 cm. These are likely huang ngiomas. Gallbladder: Gallbladder is distended, likely related to fasting state. No gallbladder wall thickenin g, no gallstones, no pericholecystic fluid, and no sonographic Estrada's per digital assistant's report. Biliary ducts: There is mild intrahepatic biliary ductal dilatation with the common bile duct measuri ng approximately 9 mm in diameter. Common hepatic duct measures 4 mm. Normal is 6-7 mm or less in zenon meter, or 10 mm or less post-cholecystectomy. Pancreas: Pancreas appears echogenic in echotexture. No evidence of pancreatic ductal dilatation. Kidneys: Right kidney is normal in size and echotexture. Right kidney measures 10.7 cm long. There i s a 1.5 cm right renal cyst. No hydronephrosis or nephrolithiasis. No solid masses. Aorta: Visualized aorta is normal in caliber at less than 3 cm. IVC: Intrahepatic inferior vena cava is patent. Miscellaneous: No free abdominal fluid. IMPRESSION: 1. Mild intrahepatic biliary ductal dilatation with prominence of the common bile duct measuring 9 mm . 2. Distended gallbladder likely related to fasting state. No evidence for choledocholithiasis, cholel ithiasis or acute cholecystitis. 3. Echogenic lesions within the right mid hepatic lobe likely representing hemangiomas. Consider none mergent imaging with multi phase CT or MRI using liver mass protocol to further characterize. 4. Right renal cyst. Reviewed by: William Beverly MD on 03/15/2020 2:29 PM PDT Approved by: William Beverly MD on 03/15/2020 2:29 PM PDT Station ID: [id number]
[2020-03-15 14:32] LABS: INR 1.2 (0.8-1.2); PT - PROTHROMBIN TIME 13.2 secs (9.9-12.6)
[2020-03-15] MEDS ORDERED: ONDANSETRON 4 MG/2 ML VIAL IVP PRN (15:31)
[2020-03-15] MEDS: D5NS W/20 MEQ KCL 1,000 ML IV SCH ×2 (15:38→22:54)
[2020-03-15] MEDS: SODIUM CHLORIDE FLUSH 0.9% 10 ML SYRINGE IVP SCH ×2 (15:38→23:58)
--- NOTE | 2020-03-15 17:25 | HISTORY & PHYSICAL EXAMINATION ---
DATE OF SERVICE: 03/15/2020 Physician: Blanka Talamantes MD HISTORY OF PRESENT ILLNESS: This is a 54-year-old white male with a history of substance abuse of opioids and cannabis. He was seen in this Emergency Room several days ago for uncontrolled nausea and vomiting, which was felt to be a cannabis hyperemesis. He was discharged after receiving antiemetics and passed a swallowing evaluation. Apparently, he did keep on having frequent nausea and vomiting over these last 4 days, eight times a day initially, now in the last 2 days about twice a day. Today, he felt weaker and lightheaded with ambulation and therefore presented to the emergency room. He denied any chest pain, dyspnea, fever, diarrhea. He has not been exposed to any sick contacts. He has not used cannabis in the 4 days since that last ER visit. Labs done today showed that he is mildly dehydrated and had received 2 liters of fluids in the ER by IV. Initial workup using ultrasound of the abdomen showed that he has common bile duct dilatation. Patient is being placed in observation status for further IV hydration, antiemetics and further workup. PAST MEDICAL HISTORY: Substance abuse, using opioids, cannabis. He reported that there was a remote EGD done that diagnosed with "some tears" and he was offered surgery, but did not have that done. He has a history of Suboxone use and was taking his sublingual dose until he decreased it by half over these last 4 days. FAMILY HISTORY: No inherited diseases. SOCIAL HISTORY: Patient does not smoke, but does smoke marijuana. Patient does not use any alcohol, but did have a history of opioid addiction and is now on Suboxone. ALLERGIES: NONE. MEDICATIONS 1. Sublingual Zofran p.r.n. 2. Suboxone 8 mg, half a tablet sublingual daily. 3. Naprosyn 220 mg b.i.d. p.r.n. pain. REVIEW OF SYSTEMS: A comprehensive review of systems was performed, the pertinent positives are listed above, the rest are negative. PHYSICAL EXAM GENERAL: White male who is in no distress currently. VITAL SIGNS: Blood pressure 130/90, heart rate 60, afebrile, room air saturation 100%. HEENT: Unremarkable except for dry oral mucosa. NECK: No JVD. No carotid bruits. CHEST: Clear. HEART: Normal heart sounds, no murmurs. ABDOMEN: Soft, nontender. No organomegaly. No Estrada sign. No guarding or rebound. Normal bowel sounds. EXTREMITIES: No clubbing, cyanosis or edema. NEUROLOGIC: Grossly intact. LABORATORY DATA: White blood count 12, hemoglobin 16, platelet count 285. INR normal at 1.2. Sodium 134, otherwise normal electrolytes. BUN 39, creatinine 1.1. Normal AST and ALT and alkaline phosphatase. Total bilirubin up at 1.6. High sensitivity troponin elevated at 78.8. Lipase normal. Chest x-ray unremarkable. Abdominal ultrasound showed dilated intrahepatic bile ducts and dilated common bile duct, but no stones or sludge were seen. There are masses of the liver, which appeared to be hemangiomas. Right renal cyst is seen. IMPRESSION 1. Nausea and vomiting, recurrent. 2. Dehydration with elevated BUN and creatinine ratio. 3. Lightheadedness, related to #2. 4. Elevated troponin. 5. Elevated bilirubin and abnormal ultrasound of the right upper quadrant. 6. History of opioid abuse and currently on Suboxone with a dose that was recently decreased on his own. PLAN: Place patient in observation status. Continue with IV hydration, IV antiemetics and bowel rest with n.p.o. status, advance diet as tolerated.. Follow his BMP and magnesium daily. Check orthostatic vital signs every shift. Cycle troponins. Obtain CT of the abdomen imaging regarding the abnormality of the liver and gallbladder area. Continue with his Suboxone sublingual. DEEP VENOUS THROMBOSIS PROPHYLAXIS: SCDs. CODE STATUS: FULL CODE. ATTESTATION: Patient is expected to be discharged or transferred to another facility within 96 hours: Yes. cc: Primary Care Physician, TD: 03/15/2020 17:10 MTDNate
[2020-03-15] MEDS ORDERED: IOVERSOL 320 100 ML VIAL IVP ONE ×2 (17:46→18:44)
[2020-03-15] MEDS: PANTOPRAZOLE 40 MG VIAL IVP SCH (20:34)
--- NOTE | 2020-03-15 22:28 | CT Report ---
PROCEDURE: Abdomen/Pelvis W INDICATIONS: N/V, DILATED CBD ON USD CONTRAST: IV CONTRAST: Optiray 320 ml: 100 PO CONTRAST: *NO PO CONTRAST TECHNIQUE: After the administration of intravenous contrast, 5 mm thick sections acquired from the diaphragms to the symphysis. 5 mm thick coronal and sagittal reformats were acquired. For radiation dose reducti on, the following was used: automated exposure control, adjustment of mA and/or kV according to bartolo ent size. COMPARISON: CT abdomen and pelvis 12/05/2018. FINDINGS: Image quality: Excellent. ABDOMEN: Lung bases: Lung bases are clear. Heart size is normal. Solid organs: Liver and spleen are normal in size and enhancement. Stable cyst or hemangioma in the right lobe of the liver. Area of hypodensity adjacent to the falciform ligament likely focal fatty in filtration. Gallbladder is unremarkable. CBD measures 6 mm, (11/15). There is subtle visualization of a left intrahepatic bile duct. However, there is no significant intrahepatic biliary ductal or extra hepatic biliary ductal dilatation demonstrated. Pancreas enhances normally. No adrenal nodules. Kid neys demonstrate normal size and enhancement, without hydronephrosis. Small simple appearing cyst of the left kidney, unchanged. Peritoneum and bowel: Mildly dilated loops of small bowel in the left abdomen, (11/05). No discrete tr ansition point identified. No free fluid or air. The appendix is normal. Nodes and vessels: No retroperitoneal or mesenteric adenopathy by size criteria. Aorta and inferior vena cava are normal in size. Miscellaneous: Small fat-containing periumbilical hernia. PELVIS: Genitourinary: Bladder wall thickness is normal. Miscellaneous: No inguinal hernias or adenopathy. Bones: No suspicious bony lesions. No vertebral body compression fractures. IMPRESSION: 1. Mildly dilated loops of small bowel in the left abdomen. No discrete transition point identified t o suggest bowel obstruction. No free fluid. No pneumoperitoneum. -Recommend clinical correlation. 2. No biliary ductal dilatation identified. -If the patient has an elevated bilirubin and biliary obstruction is suspected consider MRCP for furt her evaluation. 3. Focal fatty infiltration near the falciform ligament which likely corresponds to the echogenic are a seen on prior ultrasound rather than hemangioma. Reviewed by: Dirk March MD on 03/15/2020 10:26 PM PDT Approved by: Dirk March MD on 03/15/2020 10:26 PM PDT Station ID: [id number]
[2020-03-16 06:01] LABS: BASOPHILS # (AUTO) 0.1 10^3/uL (0.0-0.1); BASOPHILS % (AUTO) 0.6 %; EOSINOPHILS # (AUTO) 0.2 10^3/uL (0.0-0.7); EOSINOPHILS % (AUTO) 2.6 %; HGB - HEMOGLOBIN 13.6 g/dL (14.0-18.0); LYMPHOCYTES % (AUTO) 21.9 %; MEAN CORPUSCULAR HEMOGLOBIN 28.6 pg (27.0-31.0); MEAN CORPUSCULAR HGB CONC 32.6 g/dL (32.0-36.0); MEAN CORPUSCULAR VOLUME 87.8 fL (80.0-94.0); MEAN PLATELET VOLUME 9.5 fL (7.4-11.4); MONOCYTES # (AUTO) 0.9 10^3/uL (0.0-1.0); MONOCYTES % (AUTO) 10.3 %; NEUTROPHILS # (AUTO) 5.7 10^3/uL (1.5-6.6); NEUTROPHILS % (AUTO) 64.2 %; PLT - PLATELET COUNT 211 10^3/uL (130-450); RED BLOOD COUNT 4.75 10^6/uL (4.70-6.10); RED CELL DISTRIBUTION WIDTH 12.8 % (12.0-15.0); WHITE BLOOD COUNT 8.9 x10^3/uL (4.8-10.8)
[2020-03-16 06:16] LABS: ALBUMIN 2.8 g/dL (3.2-5.5); ALBUMIN/GLOBULIN RATIO 0.9 (1.0-2.2); BILIRUBIN,TOTAL 0.7 mg/dL (0.2-1.0); CALCIUM 8.2 mg/dL (8.5-10.3); CREATININE 0.9 mg/dL (0.6-1.2); TOTAL PROTEIN 5.9 g/dL (6.7-8.2)
[2020-03-16] MEDS: D5NS W/20 MEQ KCL 1,000 ML IV SCH (06:40)
[2020-03-16] MEDS: PANTOPRAZOLE 40 MG VIAL IVP SCH (08:12)
[2020-03-16] MEDS: SODIUM CHLORIDE FLUSH 0.9% 10 ML SYRINGE IVP SCH (08:13)
[2020-03-16] MEDS ORDERED: PATIENT OWN CONTROLLED 1 EACH SL SCH (09:00)
[2020-03-16 11:45] VITALS: BP 128/83
--- NOTE | 2020-03-16 13:35 | Discharge Plan ---
Discharge Plan Problem Reviewed?: Yes Disposition: Home, Self Care Condition: Stable Diet: Soft Activity Restrictions: Activity as Tolerated Shower Restrictions: No Driving Restrictions: No Instruction Topics: Addiction Marijuana Signs Health Concerns: You were hospitalized in Observation status for nausea, vomiting and dehydration. The abdomen was evaluated with imaging and no significant gallbladder abnormality was found, as first suspected, but your bowel has a partial obstruction or slow movement. Please STOP USING MARIJUANA entirely, which adds to vomiting and your abdominal symptoms. Advance your diet SLOWLY as tolerated, and drink alot of liquids, stay well hydrated. If you have persistent symptoms, see your PCP. Stay your usual Suboxone and other medicines and management. Plan of Treatment: As above. Care Goals: Improvement in symptoms and stabilization are the goals. Assessment: The patient understands the plan; written instructions were provided at discharge. No Smoking: If you smoke, Please STOP! Call for help. Follow-up with: Rianna Moses PA [Physician No Access] -
--- NOTE | 2020-03-16 14:01 | DISCHARGE SUMMARY ---
Discharge Summary Admit Date: 03/15/20 Discharge Date: 03/16/20 Discharging Provider: Dr Blanka Talamantes Primary Care Provider: RHONA Moses Condition at Discharge: Stable Discharge Disposition: 01 Home, Self Care - HPI History of Present Illness: This is a 54-year-old white male with a history of prior opiate dependence for which he is now on daily Suboxone. He had presented to the ER 4 days ago with persistent nausea and vomiting, cannabis was found on his toxicology screen, he had control of symptoms with antiemetics and was able to take a diet without symptoms and was discharged home and was told he had cannabis hyperemesis and advised not to use marijuana. He continued to have nausea and vomiting up to 8 times a day in these past 4 days. He presented today with weakness and dizziness with standing, nausea and anorexia. Work-up in the ER shows a BUN/creatinine of 39/1.1 consistent with dehydration, bilirubin elevated at 1.6, and right upper quadrant ultrasound shows dilation of his common bile duct. His hs-troponin is also mildly elevated at 77, with a normal EKG. The patient is being placed in Observation status to manage dehydration and evaluate cause for nausea, vomiting, elevated bilirubin and bile duct dilatation and check serial troponins. - HOSPITAL COURSE Hospital Course: 1) N/V He was ordered to get antiemetics as needed, which he used minimally. He tried a clear liquid diet which she tolerated and this was advanced. He was discharged home to slowly advance his diet. He was told to stop using marijuana entirely. 2) Partial SBO A CT of the abdomen and pelvis was done that showed no gallbladder abnormality specifically no bile duct dilatation, no gallbladder stones, sludge or evidence of cholecystitis, also no intrahepatic abnormality. There was mild, partial small bowel obstruction noted. He had bowel sounds at presentation and on the following day and also had a bowel movement on his second day here therefore discharge was deemed safe. The slow advancement of diet at home was advised as above. 3) Dehydration He received IV fluids during his entire stay here and was clinically improved by the following day. 4) Elevated hs-troponin The troponins were mildly elevated but "flat" (78, 77, 66), and EKG was normal, ruling out an NM. 5) Elev bili The bilirubin of 1.6, it was repeated the following day and it was normal at 0.7. The bili elevation was probably a phase reactant. 6) Encounter for suboxone maintenance therapy Patient was kept on his usual Suboxone therapy while here. 7) Marijuana use He was educated about the use of marijuana in any form that may be giving him hyperemesis, and he was advised to stop using it completely. - ALLERGIES Allergies/Adverse Reactions: Allergies Allergy/AdvReac Type Severity Reaction Status Date / Time No Known Drug Allergies Allergy Verified 03/15/20 10:43 - MEDICATIONS Home Medications: Ambulatory Orders Medication Instructions Recorded Confirmed Naproxen Sodium [Aleve] 220 mg PO BID PRN 12/05/18 03/15/20 Ondansetron Odt [Zofran Odt] 4 mg TL Q6H PRN #10 tablet 03/11/20 03/15/20 Buprenorphine HCl/Naloxone HCl 0.5 each SL DAILY 03/15/20 03/15/20 [Buprenorp-Nalox 8-2 mg Sl Film] - PHYSICAL EXAM AT DISCHARGE General Appearance: positive: No acute distress, Alert Eyes Bilateral: positive: Normal inspection, EOMI ENT: positive: ENT inspection nml, No signs of dehydration Neck: positive: Nml inspection, No JVD Respiratory: positive: No respiratory distress, Breath sounds nml Cardiovascular: positive: Regular rate & rhythm, No murmur Abdomen: positive: Non-tender, Nml bowel sounds, Other (Mild distention with increased tympany) Skin: positive: Color nml, Warm, Dry Extremities: positive: No pedal edema Neurologic/Psychiatric: positive: Oriented x3 (Nonfocal exam.) - LABS Result Diagrams: 03/16/20 05:45 03/16/20 05:30 - DIAGNOSTIC IMAGING Diagnostic Imaging Results: Final report reviewed - FOLLOW UP Follow Up: He was advised to see his PCP in follow-up for further evaluation and management. - TIME SPENT Time Spent in Discharge (Minutes): 30
== END 2020-03-16 14:50 | disposition home or self-care (01) ==
LOC: ED 10:33 → MS2 14:14
PROVIDERS: ADMIT Internal Medicine; ATTEND Internal Medicine
DX: K56.600 Partial intestinal obstruction, unspecified as to cause (principal); E86.0 Dehydration; R55 Syncope and collapse; R00.1 Bradycardia, unspecified; R77.8 Other specified abnormalities of plasma proteins; F12.10 Cannabis abuse, uncomplicated; F11.20 Opioid dependence, uncomplicated; T40.496A Underdosing of other synthetic narcotics, initial encounter; T50.7X6A Underdosing of analeptics and opioid receptor antagonists, initial encounter; Z91.128 Patient's intentional underdosing of medication regimen for other reason; Z79.899 Other long term (current) drug therapy
CPT/HCPCS: 36415; 71045; 74177; 76705; 80053; 81001; 83690; 84484; 85025; 85610; 93005; 96365; 96366; 96375; 96376; 99285; A9270; G0378; J2765; Q9967; 81003; 87086

== ENCOUNTER 2020-12-20 14:00 | Outpatient (CLI) | payer OTHER ==
--- NOTE | 2020-12-20 14:57 | XRAY Report ---
PROCEDURE: Finger(s) LT INDICATIONS: CRUSHING INJURY OF L 5TH DIGIT TECHNIQUE: AP hand, 3 views of the fifth finger(s) acquired. COMPARISON: None. FINDINGS: Bones: No fractures or dislocations. No suspicious bony lesions. Soft tissues: No suspicious soft tissue calcifications. IMPRESSION: Soft tissue swelling is present over the distal interphalangeal joint of the fifth digit but no fract ure or foreign body is found. 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 Reviewed by: Bruno Norton MD on 12/20/2020 2:56 PM PDT Approved by: Bruno Norton MD on 12/20/2020 2:56 PM PDT Station ID: [id number]
== END 2020-12-20 23:59 | disposition home or self-care (01) ==
LOC: DI.N 14:00
PROVIDERS: ATTEND Nurse Practitioner
DX: S67.197A Crushing injury of left little finger, initial encounter (principal); M19.042 Primary osteoarthritis, left hand

== ENCOUNTER 2021-07-07 08:13 | Emergency (ER) | payer OTHER ==
[2021-07-07] MEDS ORDERED: LORazepam 2 MG/ML VIAL IVP STA (08:47)
[2021-07-07] MEDS ORDERED: FAMOTIDINE 20 MG/2 ML VIAL IVP STA (08:47)
[2021-07-07] MEDS ORDERED: DROPERIDOL 5 MG/2 ML VIAL IVP STA (08:47)
[2021-07-07] MEDS ORDERED: SODIUM CHLORIDE 0.9% 1,000 ML IV STA (08:47)
--- NOTE | 2021-07-07 08:48 | ED Physician Documentation ---
PD HPI NVD - Stated complaint Stated Complaint: VOMITING - Chief complaint Chief Complaint: Abd Pain - History obtained from History obtained from: Patient - History of Present Illness Timing - onset: How many days ago (2) Timing - duration: Days (2) Timing - details: Abrupt onset, Still present Associated symptoms: Abdominal pain (upper), Loss of appetite, Other (repetitive vomiting with persistent nausea. No diarrhea.). No: Fever Contributing factors: Other (cannibis use and this has been thought the cause of prior episodes similar to this.). No: Sick contact, Bad food Improved by: No: Vomiting Worsened by: Eating Similar symptoms before: Diagnosis (cannibis related hyperemesisi.) Recently seen: Not recently seen Review of Systems Constitutional: denies: Fever, Chills Nose: denies: Rhinorrhea / runny nose, Congestion Throat: denies: Sore throat Respiratory: denies: Cough GI: reports: Abdominal Pain, Nausea, Vomiting. denies: Diarrhea, Hematemesis, Bloody / black stool Skin: denies: Rash, Lesions Neurologic: reports: Generalized weakness. denies: Focal weakness, Near syncope, Altered mental status, Headache PD PAST MEDICAL HISTORY - Past Medical History Cardiovascular: None Respiratory: None Endocrine/Autoimmune: None GI: None : None HEENT: None Psych: None Musculoskeletal: Chronic back pain Derm: None - Past Surgical History Past Surgical History: No - Present Medications Home Medications: Ambulatory Orders Medication Instructions Recorded Confirmed Naproxen Sodium [Aleve] 220 mg PO BID PRN 12/05/18 03/15/20 Ondansetron Odt [Zofran Odt] 4 mg TL Q6H PRN #10 tablet 03/11/20 03/15/20 Buprenorphine HCl/Naloxone HCl 0.5 each SL DAILY 03/15/20 03/15/20 [Buprenorphine-Nalox 8-2Mg Film] Famotidine [Pepcid] 20 mg PO DAILY #20 tablet 07/07/21 Promethazine Supp [Phenergan Supp] 25 mg UT Q6H PRN #5 supp 07/07/21 Promethazine [Phenergan] 25 mg PO Q6H PRN #20 tab 07/07/21 - Allergies Allergies/Adverse Reactions: Allergies Allergy/AdvReac Type Severity Reaction Status Date / Time No Known Drug Allergies Allergy Verified 07/07/21 08:18 - Social History Does the pt smoke?: No Smoking Status: Former smoker Does the pt drink ETOH?: No Does the pt have substance abuse?: Yes - Immunizations Immunizations are current?: No Immunizations: Other immun not current - POLST Patient has POLST: No POLST Status: Full Code PD ED PE NORMAL - Vitals Vital signs reviewed: Yes - General General: Alert and oriented X 3, Well developed/nourished, Other (appears anxious, holding ememsis bag and dry heaving. ) - HEENT HEENT: Pharynx benign. No: Moist mucous membranes - Neck Neck: Supple, no meningeal sign, No adenopathy - Cardiac Cardiac: RRR, No murmur - Respiratory Respiratory: Clear bilaterally - Abdomen Abdomen: Normal bowel sounds, Soft, Non distended, No organomegaly, Other (tender epigastric without guarding nor percussion tender. ) - Derm Derm: Normal color, Warm and dry - Neuro Neuro: Alert and oriented X 3, No motor deficit, Normal speech Results - Vitals Vitals: Vital Signs - 24 hr 07/07/21 07/07/21 07/07/21 08:16 10:18 11:26 Temperature 36.2 C L Heart Rate 62 84 85 Respiratory 16 19 18 Rate Blood Pressure 171/110 H 157/114 H 152/104 H O2 Saturation 99 99 98 Oxygen O2 Source Room air - Labs Labs: Laboratory Tests 07/07/21 07/07/21 08:54 08:54 WBC 19.9 H RBC 5.88 Hgb 16.8 Hct 49.9 MCV 84.9 MCH 28.6 MCHC 33.7 RDW 13.0 Plt Count 270 MPV 9.3 Neut # (Auto) 17.5 H Lymph # (Auto) 1.1 L [place] # (Auto) 1.2 H Eos # (Auto) 0.0 Baso # (Auto) 0.0 Absolute Nucleated RBC 0.00 Nucleated RBC % 0.0 Sodium 135 Potassium 3.5 Chloride 95 L Carbon Dioxide 26 Anion Gap 14.0 H BUN 38 H Creatinine 1.1 Estimated GFR (MDRD) 69 L Glucose 122 H Calcium 9.6 Magnesium 2.1 Total Bilirubin 1.3 H AST 24 ALT 23 Alkaline Phosphatase 60 Total Protein 8.5 H Albumin 4.3 Globulin 4.2 Albumin/Globulin Ratio 1.0 Lipase 23 PD MEDICAL DECISION MAKING - ED course Complexity details: reviewed old records, re-evaluated patient (improved nausea and vomiting, but has feeling of restless legs. Given Benadryl IV and helped this. He feels able to go home after passing PO challenge. ), considered differential, d/w patient Departure - Departure Disposition: 01 Home, Self Care Clinical Impression: Cannabis hyperemesis syndrome concurrent with and due to cannabis abuse Condition: Stable Record reviewed to determine appropriate education?: Yes Instructions: ED Nausea Vomiting Prescriptions: Famotidine [Pepcid] 20 mg PO DAILY #20 tablet Promethazine [Phenergan] 25 mg PO Q6H PRN #20 tab PRN Reason: Nausea / Vomiting Promethazine Supp [Phenergan Supp] 25 mg UT Q6H PRN #5 supp PRN Reason: Nausea / Vomiting Comments: If this relates to the use of cannabis, which can cause episodic nausea and vomiting as you have had, that it would make most sense to not be using the cannabis. You do not have any tenderness in the abdomen to suggest a local organ process such as appendix or gallbladder. Your blood tests are good without any signs of inflammation of the liver or pancreas. Small frequent fluids today. You may need some nausea medicine periodically now and also with further episodes. I wrote a prescription for both oral and suppository promethazine to help with that. I would also suggest famotidine acid reducing medicine daily for the next week or 2 as your stomach is likely irritated from all the vomiting. [place] food and frequent fluids today and tomorrow and progress as tolerated. Return if worse. Discharge Date/Time: 07/07/21 11:26
[2021-07-07 09:06] LABS: BASOPHILS % (AUTO) 0.2 %; EOSINOPHILS % (AUTO) 0.1 %; HCT - HEMATOCRIT 49.9 % (42.0-52.0); HGB - HEMOGLOBIN 16.8 g/dL (14.0-18.0); LYMPHOCYTES # (AUTO) 1.1 10^3/uL (1.5-3.5); LYMPHOCYTES % (AUTO) 5.4 %; MEAN CORPUSCULAR HEMOGLOBIN 28.6 pg (27.0-31.0); MEAN CORPUSCULAR HGB CONC 33.7 g/dL (32.0-36.0); MEAN CORPUSCULAR VOLUME 84.9 fL (80.0-94.0); MEAN PLATELET VOLUME 9.3 fL (7.4-11.4); MONOCYTES # (AUTO) 1.2 10^3/uL (0.0-1.0); MONOCYTES % (AUTO) 6.1 %; NEUTROPHILS # (AUTO) 17.5 10^3/uL (1.5-6.6); NEUTROPHILS % (AUTO) 87.8 %; PLT - PLATELET COUNT 270 10^3/uL (130-450); RED BLOOD COUNT 5.88 10^6/uL (4.70-6.10); WHITE BLOOD COUNT 19.9 x10^3/uL (4.8-10.8)
[2021-07-07 09:22] LABS: ALBUMIN 4.3 g/dL (3.2-5.5); BILIRUBIN,TOTAL 1.3 mg/dL (0.2-1.0); CALCIUM 9.6 mg/dL (8.5-10.3); CREATININE 1.1 mg/dL (0.6-1.2); MAGNESIUM 2.1 mg/dL (1.7-2.8); POTASSIUM 3.5 mmol/L (3.5-5.0); TOTAL PROTEIN 8.5 g/dL (6.7-8.2)
[2021-07-07] MEDS ORDERED: diphenhydrAMINE INJ 50 MG/ML VIAL IVP STA (10:03)
[2021-07-07 11:26] VITALS: BP 152/104
== END 2021-07-07 11:26 | disposition home or self-care (01) ==
LOC: ED 08:13
DX: F12.188 Cannabis abuse with other cannabis-induced disorder (principal); R11.10 Vomiting, unspecified; Z87.891 Personal history of nicotine dependence
CPT/HCPCS: 36415; 80053; 83690; 83735; 85025; 96374; 96375; 99283; 99284; J1200; J2060

== ENCOUNTER 2022-12-03 13:44 | Inpatient (IN) | payer OTHER ==
[2022-12-03] MEDS ORDERED: OLANZapine ODT 5 MG TABLET TL ONE (13:54)
[2022-12-03] MEDS ORDERED: SODIUM CHLORIDE 0.9% 1,000 ML IV STA (13:54)
--- NOTE | 2022-12-03 14:00 | ED Physician Documentation ---
History of Present Illness - Stated complaint Stated Complaint: AMS - History obtained from History obtained from: Patient, EMS - Additonal information Additional information: The patient is sent to the emergency department via EMS from eye to out for chief complaint of altered mental status. The patient checked into eye to around 10:00 this morning and seemed normal and coherent, and able to have a conversation. About an hour ago, he began to seem as though he was becoming more altered and became progressively more agitated. The patient states he normally takes fentanyl and methamphetamines and Denies taking any today. When questioned specifically about taking any drugs while at eye to, he denies this. The patient states he thinks that his last dose of fentanyl was yesterday and that he last used meth a couple of days ago. He denies using alcohol or any other drugs. He states he does not know why he is so agitated. The patient states he is otherwise healthy. He is not on any other medications for anything. PD PAST MEDICAL HISTORY - Past Medical History Cardiovascular: None Respiratory: None Endocrine/Autoimmune: None GI: None : None HEENT: None Psych: None Musculoskeletal: Chronic back pain Derm: None - Past Surgical History Past Surgical History: No - Present Medications Home Medications: Ambulatory Orders Medication Instructions Recorded Confirmed Acetaminophen [Tylenol] 500 mg PO Q6HR PRN 12/03/22 12/03/22 Bismuth Subsalicylate 2 tab PO Q1HR PRN 12/03/22 12/03/22 Buprenorphine HCl/Naloxone HCl 1 each SL DAILY 12/03/22 12/03/22 [Suboxone 8 mg-2 mg Sl Film] Calcium Carbonate [Tums (Calcium 1,000 mg PO BID PRN 12/03/22 12/03/22 Carbonate 500mg)] Dicyclomine [Bentyl] 10 - 20 mg PO Q6HR PRN 12/03/22 12/03/22 Docusate Sodium 100Mg Capsule 100 mg PO BID PRN 12/03/22 12/03/22 [Colace 100Mg Capsule] Gabapentin [Neurontin] 300 mg PO TID PRN 12/03/22 12/03/22 Ibuprofen 600 mg PO Q6HR PRN 12/03/22 12/03/22 Loperamide [Imodium] 2 mg PO QID PRN 12/03/22 12/03/22 Loratadine [Claritin] 10 mg PO DAILY PRN 12/03/22 12/03/22 Multivitamin 1 each PO DAILY 12/03/22 12/03/22 ONDANSETRON ODT Prepack 2 [ZOFRAN 4 mg TL Q6H PRN 12/03/22 12/03/22 ODT Prepack 2] Promethazine [Phenergan] 12.5 mg PO TID PRN 12/03/22 12/03/22 Simethicone [Mylanta Gas Minis] 250 mg PO HS PRN 12/03/22 12/03/22 Tamsulosin [Flomax] 0.4 mg PO DAILY 12/03/22 12/03/22 Vitamin B Complex 1 each PO DAILY 12/03/22 12/03/22 bisacodyL [Dulcolax] 1 - 3 tab PO DAILY PRN 12/03/22 12/03/22 cloNIDine [Catapres] 0.1 mg PO Q4HR PRN 12/03/22 12/03/22 diphenhydrAMINE [Benadryl] 25 - 50 mg PO Q6HR PRN 12/03/22 12/03/22 hydrOXYzine HCL [Hydroxyzine HCl] 50 mg PO Q6HR PRN 12/03/22 12/03/22 methocarbamoL [Methocarbamol] 1,500 mg PO Q6HR PRN 12/03/22 12/03/22 polyethylene glycoL 3350 [Miralax] 17 gm ORAL DAILY PRN 12/03/22 12/03/22 traZODone [Desyrel] 50 - 100 mg PO HS PRN 12/03/22 12/03/22 - Allergies Allergies/Adverse Reactions: Allergies Allergy/AdvReac Type Severity Reaction Status Date / Time No Known Drug Allergies Allergy Verified 12/03/22 13:50 - Social History Does the pt smoke?: No Smoking Status: Former smoker Does the pt drink ETOH?: No Does the pt have substance abuse?: Yes - Immunizations Immunizations are current?: No Immunizations: Other immun not current - POLST Patient has POLST: No POLST Status: Full Code PD ED PE NORMAL - Vitals Vital signs reviewed: Yes - General General: Well developed/nourished, Other (Patient is agitated, crying out, and twitching. He is hallucinating but is able to be redirected when spoken to.) - HEENT HEENT: Atraumatic, PERRL, EOMI, Moist mucous membranes - Neck Neck: Supple, no meningeal sign - Cardiac Cardiac: RRR, No murmur, Strong equal pulses - Respiratory Respiratory: No respiratory distress, Clear bilaterally - Abdomen Abdomen: Soft, Non tender, Non distended - Derm Derm: Normal color, Warm and dry, No rash - Extremities Extremities: No deformity, No edema - Neuro Neuro: Other (The patient is agitated but is redirectable and able to answer questions appropriately when spoken directly to. ) - Psych Psych: Normal mood, Normal affect Results - Vitals Vitals: Vital Signs - 24 hr 12/03/22 12/03/22 12/03/22 13:50 14:45 14:46 Temperature 37.3 C 1445 C H Heart Rate 113 H 108 H 105 H Respiratory 24 24 28 H Rate Blood Pressure 176/114 H 194/143 H O2 Saturation 99 95 97 12/03/22 15:02 Temperature Heart Rate 120 H Respiratory 21 Rate Blood Pressure 212/144 H O2 Saturation 98 Oxygen O2 Source Nasal cannula - Labs Labs: Laboratory Tests 12/03/22 12/03/22 14:06 14:06 WBC 9.4 RBC 4.82 Hgb 13.5 L Hct 39.8 L MCV 82.6 MCH 28.0 MCHC 33.9 RDW 12.5 Plt Count 291 MPV 8.4 Neut # (Auto) 8.0 H Lymph # (Auto) 0.9 L [place] # (Auto) 0.4 Eos # (Auto) 0.1 Baso # (Auto) 0.1 Absolute Nucleated RBC 0.00 Nucleated RBC % 0.0 Sodium 137 Potassium 3.7 Chloride 104 Carbon Dioxide 24 Anion Gap 9.0 BUN 19 Creatinine 1.0 Estimated GFR (MDRD) 76 L Glucose 116 H Calcium 9.2 Total Bilirubin 0.9 AST 37 ALT 34 Alkaline Phosphatase 63 Total Protein 7.2 Albumin 3.5 Globulin 3.7 Albumin/Globulin Ratio 0.9 L Lipase 24 Ethyl Alcohol < 5.0 PD Medical Decision Making - ED course Complexity details: reviewed results, re-evaluated patient, considered differential, d/w patient ED course: The patient appeared to be high on some sort of stimulant, and I suspected most likely meth. The patient could converse coherently when redirected but in between, was alternating between crying out, hallucinating, And speaking unintelligibly, although while crying and twitching. He was worked up with laboratory studies and urine drug screen, and given a dose of Zyprexa. This did not seem to yield much in the way of calming the patient down and so the patient was then given Haldol 5 mg and Ativan 1 mg IV. Patient briefly settled down after this but began thrashing, yelling, and responding to internal stimuli again. He was also swinging at the staff. The patient was then given 2 mg/kg of ketamine infusion which did take effect for about 30 minutes and the patient was calm, albeit somnolent. About the time of end of shift signout, the patient began to awaken and become agitated again. I did order 2 mg of Ativan IV. The patient is signed out to Dr. Correa, pending completion of work-up and final disposition.
[2022-12-03] MEDS ORDERED: LORazepam 2 MG/ML VIAL IVP STA ×2 (14:08→15:05)
[2022-12-03] MEDS ORDERED: HALOPERIDOL 5 MG/ML VIAL IVP STA (14:08)
[2022-12-03 14:13] LABS: BASOPHILS # (AUTO) 0.1 10^3/uL (0.0-0.1); BASOPHILS % (AUTO) 0.5 %; EOSINOPHILS # (AUTO) 0.1 10^3/uL (0.0-0.7); EOSINOPHILS % (AUTO) 1.3 %; HCT - HEMATOCRIT 39.8 % (42.0-52.0); HGB - HEMOGLOBIN 13.5 g/dL (14.0-18.0); LYMPHOCYTES # (AUTO) 0.9 10^3/uL (1.5-3.5); LYMPHOCYTES % (AUTO) 9.4 %; MEAN CORPUSCULAR HGB CONC 33.9 g/dL (32.0-36.0); MEAN CORPUSCULAR VOLUME 82.6 fL (80.0-94.0); MEAN PLATELET VOLUME 8.4 fL (7.4-11.4); MONOCYTES # (AUTO) 0.4 10^3/uL (0.0-1.0); MONOCYTES % (AUTO) 4.2 %; NEUTROPHILS % (AUTO) 84.3 %; PLT - PLATELET COUNT 291 10^3/uL (130-450); RED BLOOD COUNT 4.82 10^6/uL (4.70-6.10); RED CELL DISTRIBUTION WIDTH 12.5 % (12.0-15.0); WHITE BLOOD COUNT 9.4 x10^3/uL (4.8-10.8)
[2022-12-03 14:27] LABS: ALBUMIN 3.5 g/dL (3.2-5.5); ALBUMIN/GLOBULIN RATIO 0.9 (1.0-2.2); ALKALINE PHOSPHATASE 63 IU/L (42-121); ALT ALANINE AMINOTRANSFERASE 34 IU/L (10-60); AST ASPARTATE AMINOTRANSFERASE 37 IU/L (10-42); BILIRUBIN,TOTAL 0.9 mg/dL (0.2-1.0); BUN - BLOOD UREA NITROGEN 19 mg/dL (6-20); CALCIUM 9.2 mg/dL (8.5-10.3); CARBON DIOXIDE - CO2 24 mmol/L (21-32); CHLORIDE 104 mmol/L (101-111); ETOH - ETHANOL < 5.0 mg/dL; GFR - MDRD 76 (>89); GLUCOSE 116 mg/dL (70-100); LIPASE 24 U/L (22-51); POTASSIUM 3.7 mmol/L (3.5-5.0); SODIUM 137 mmol/L (135-145); TOTAL PROTEIN 7.2 g/dL (6.7-8.2)
[2022-12-03] MEDS ORDERED: KETAMINE 500 MG/10 ML VIAL IVP STA (14:31)
--- NOTE | 2022-12-03 14:59 | ED Physician Documentation ---
Restraint [id number] - Immediate Situation Face to Face Evaluation Date: 12/03/22 Face to Face Evaluation Time: 14:57 Restraint Classification: Violent, chemical Restraint Type: Chemical - Patient's Reaction & Behaviors Safety: Physically safe, Unable to Follow Commands Other: Resting quietly - Behavioral Condition Attitude: Other Behavior: Other (Sedated) Orientation: Non-responsive Mood: Other (Somnolent) - Evaluation Review of Systems: Unable to obtain, secondary to patient's agitation and hallucinations. Pertinent History/Illicit Drugs/Medications/Results: See HPI - Plan Need to Continue or Terminate Violent or Chemical Restraint: We will continue to reevaluate and determine further restraint based on patient's condition.
[2022-12-03] MEDS ORDERED: PROPOFOL 1000 MG/100 ML 1,000 MG/100 ML BOTTLE IV STA (15:39)
[2022-12-03] MEDS ORDERED: PROPOFOL 200 MG/20 ML VIAL IVP STA (15:39)
[2022-12-03] MEDS ORDERED: SUCCINYLCHOLINE 200 MG/10 ML VIAL IVP STA (15:40)
--- NOTE | 2022-12-03 15:41 | ED Physician Documentation ---
ED Addendum - Addendum Addendum: 12/03/22 15:[address] Lopez at 3 PM shift change. He had received 2 mg of Ativan IV for anxiety right at shift change. At this time he is Moaning, but not redirectable. Given all the medications he is already had the decision was made to intubate for airway protection and safety. 12/03/22 15:55 He was preoxygenated, RT was at the bedside. I personally pushed 200 mg of propofol and then 200 mg of succinylcholine. Using the glide scope I witnessed a 7-1/2 cm to go through the cords. Note that he was a mildly difficult airway due to anterior cords. He had bilateral breath sounds and positive color change. He was started on a propofol drip. Discussed case with Dr. Green by phone at this time for admission to ICU. Adequate care time 40 minutes in direct care of patient, documentation, consultations. Condition: Critical Diagnosis: 1. Polysubstance abuse 2. Agitated delirium 3. Mild rhabdomyolysis 4. Respiratory failure due to not protecting the airway. 12/03/22 16:37 Twelve-lead EKG done at 1623 hrs. discloses sinus tachycardia with a rate of 121, possible RAD and LVH, no ischemic findings. He continued to need more more sedatives, propofol currently at max dose of 50Micrograms per kilogram per minute and we are doubling his fentanyl from 1 pita per kilogram per minute to 2 mics per kilogram per minute at this time. Postintubation chest x-ray demonstrates appropriate positioning of endotracheal tube with clear lungs. Final report reviewed and independently reviewed by me.
[2022-12-03] MEDS ORDERED: ONDANSETRON 4 MG/2 ML VIAL IVP PRN (15:55)
[2022-12-03] MEDS ORDERED: ONDANSETRON ODT 4 MG TABLET TL PRN (15:55)
[2022-12-03] MEDS ORDERED: fentaNYL 2,500 MCG in SODIUM CHLORIDE 0.9% 200 ML IV STA ×2 (16:00→16:34)
[2022-12-03 16:16] LABS: MUDS CUTOFF CONCENTRATIONS CUTOFF CONC BELOW:
[2022-12-03 16:35] LABS: AMPHETAMINE SCREEN,URINE POSITIVE (NEGATIVE); BARBITURATE SCREEN,UR NEGATIVE (NEGATIVE); BENZODIAZEPINES SCREEN, URINE NEGATIVE (NEGATIVE); COCAINE SCREEN URINE NEGATIVE (NEGATIVE); METHADONE SCREEN, URINE NEGATIVE (NEGATIVE); METHAMPHETAMINES SCREEN, URINE POSITIVE (NEGATIVE); OPIATE SCREEN, URINE NEGATIVE (NEGATIVE); OXYCODONE SCREEN, URINE NEGATIVE (NEGATIVE); PROPOXYPHENE SCREEN, URINE NEGATIVE (NEGATIVE); THC CANNABINOID SCREEN, URINE NEGATIVE (NEGATIVE); TRICYCLIC ANTIDEPRESSANT,URINE NEGATIVE (NEGATIVE)
--- NOTE | 2022-12-03 16:42 | XRAY Report ---
PROCEDURE: Chest for Line Placement INDICATIONS: post intubation TECHNIQUE: One view of the chest was acquired. COMPARISON: None. FINDINGS: Surgical changes and devices: Endotracheal tube in the lower trachea. Lungs and pleura: No pleural effusions or pneumothorax. Lungs are clear. Mediastinum: Mediastinal contours appear normal. Heart size is normal. Bones and chest wall: No suspicious bony lesions. Overlying soft tissues appear unremarkable. IMPRESSION: Endotracheal tube in the lower trachea in satisfactory position. Lungs are clear. Reviewed by: Dirk March MD on 12/03/2022 4:40 PM PDT Approved by: Dirk March MD on 12/03/2022 4:40 PM PDT Station ID: [id number]
[2022-12-03] MEDS ORDERED: VECURONIUM 10 MG VIAL IVP ONE (16:48)
[2022-12-03 17:50] LABS: ABG BASE EXCESS -1.8 mmol/L (-2.0-3.0); ABG HCO3 21.8 mmol/L (22.0-26.0); ABG OXYGEN SATURATION 99 % (94-98); ABG PCO2 34 mmHg (34-45); ABG PH 7.42 (7.35-7.45); ABG TCO2 22.9 MMOL/L (21.0-29.0)
[2022-12-03 17:51] LABS: ABG MODE OF VENTILATION SIMV; ABG RESPIRATORY RATE 16 b/min; ALLEN TEST POSITIVE
[2022-12-03 17:54] LABS: ABG PO2 214 mmHg (80-100)
[2022-12-03] MEDS: PROPOFOL 1000 MG/100 ML 1,000 MG/100 ML BOTTLE IV SCH ×2 (17:58→20:18)
[2022-12-03] MEDS ORDERED: SODIUM CHLORIDE INHALATION 3 ML NEB ONE (18:05)
[2022-12-03] MEDS: PANTOPRAZOLE 40 MG VIAL IVP SCH (18:36)
[2022-12-03] MEDS: SODIUM CHLORIDE FLUSH 0.9% 10 ML SYRINGE IVP SCH (18:37)
[2022-12-03] MEDS: SODIUM CHLORIDE 0.9% 1,000 ML IV SCH (18:37)
[2022-12-03] MEDS: VECURONIUM 100 MG in SODIUM CHLORIDE 0.9% 100ML 100 ML IV SCH (19:09)
--- NOTE | 2022-12-03 19:13 | HISTORY & PHYSICAL EXAMINATION ---
Chief Complaint - Chief Complaint Chief Complaint: Agitation, belligerence, confusion at a substance abuse Rehab facility History of Present Illness - Admitted From Admitted From:: Home via rehab facility and ambulance - History Obtained From Records Reviewed: [facility] History obtained from: Daughter and sister Exam Limitations: Patient is intubated - History of Present Illness HPI Comment/Other: The patient has decades long history of fentanyl, meth, and other recreational substances the family may not know about. He started in his teen years. He has been in our ER several times because of accidental drug overdoses. He decided to go to [facility] to get some help. His last use according to his daughter was last night. He did a "blue pill". It supposed to be fentanyl. Within an hour of being at the rehab facility he became confused, incomprehensible speech, agitated. So ambulance was called and he was brought to our ER. He initially he was alert to person, place, time but confused on the situation. Could not do vital signs because he was so agitated. Per the ER provider's assessment and treatment:The patient appeared to be high on some sort of stimulant, and I suspected most likely meth. The patient could converse coherently when redirected but in between, was alternating between crying out, hallucinating, And speaking unintelligibly, although while crying and twitching. He was worked up with laboratory studies and urine drug screen, and given a dose of Zyprexa. This did not seem to yield much in the way of calming the patient down and so the patient was then given Haldol 5 mg and Ativan 1 mg IV. Patient briefly settled down after this but began thrashing, yelling, and responding to internal stimuli again. He was also swinging at the staff. The patient was then given 2 mg/kg of ketamine infusion which did take effect for about 30 minutes and the patient was calm, albeit somnolent. About the time of end of shift signout, the patient began to awaken and become agitated again. I did order 2 mg of Ativan IV. The patient is signed out to Dr. Correa, pending completion of work-up and final disposition. He was then seen by the second provider and his assessment was: Care from Dr. Lopez at 3 PM shift change. He had received 2 mg of Ativan IV for anxiety right at shift change. At this time he is Moaning, but not redirectable. Given all the medications he is already had the decision was made to intubate for airway protection and safety. 12/03/22 15:55 He was preoxygenated, RT was at the bedside. I personally pushed 200 mg of propofol and then 200 mg of succinylcholine. Using the glide scope I witnessed a 7-1/2 cm to go through the cords. Note that he was a mildly difficult airway due to anterior cords. He had bilateral breath sounds and positive color change. He was started on a propofol drip. I am now assessing the patient after he has been transferred to the ICU. I excepted the patient to my service and have placed him in ICU because of intubated status. His daughter and his sister were at the bedside and were able to fill in the gaps. He has had a long history of substance abuse. In addition to the substance abuse he also has episodes of psychosis. Sometimes he thinks aliens are coming into the house. Sometimes other people are breaking into the house. But there is no one there. He is paranoid. Delusional. At times very depressed. He has never received formal psychiatric evaluation nor has he ever received mental health care according to his family. They are asking if we could help him. This is the first time he is allowed himself to go to a rehab facility so they were hopeful. Once he gets out of the rehab facility they want to know what to do. The only medication he is taking is Flomax. It is written by Paul Martinez who is a MAYELA in one of our hospital clinics. As far as they know he has no other medical problems. On review of systems from the sister and the daughter, the patient has chronic problems with allergies, runny nose, bronchitis. Its more ENT than pulmonary problems. He did have an episode of chest pain for which she was admitted in 2018. He was found to be more epigastric discomfort and he was on narcotics and nonsteroidals. CT at that time showed thickening of the gastric and duodenal wall. He underwent an EGD for this. He has not had a colonoscopy yet. Family states that he just has "stomach problems" for which she takes ulcer pills. But his appetite has been okay. He has been eating well the last few days. There is been no diarrhea change in bowel habits. He does have prostate problems but there not clear about that. He hurts all over. Constantly. This sometimes wonders as when he does drugs. While he does not have any memory problems, he has a labile affect. He will have days where he is perfectly "normal" and then days where he has paranoia, delusions, hallucinations. This been going on for 20 years. But it is getting worse. Family is beside themselves are trying to figure out how to help him. 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 He was fired from his last job and they told him that they would hire him back once he was clean and sober. 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 Dad is still alive and was living with him for a few weeks this last month but went back to [place] to see a second . 7 siblings. 1 sister of alcohol abuse and he was the one that found her body. There is no major medical illness stated in his siblings. No high blood pressure, cancer, heart attack, stroke. 1 daughter she is healthy. Living arrangement: At home Living Situation: Alone Social History Notes: Patient is originally from [place], [place]. He has 1 daughter and broke up with his girlfriend and lived with his mother on [address]. She at 83 of complications of CAD and COPD. He was living in her house, and his father came to live with him 1.5 months ago but left this week to go back to [place]. He states that he quit smoking for about 13 years but then started back up in 2014. He states he previously smoked more than a pack a day. The patient denies any alcohol use. He states he rarely smokes marijuana. Does meth and fentanyl regularly. - POLST Patient has POLST: No POLST Status: Full Code Meds/Allgy - Home Medications Home Medications: Ambulatory Orders Medication Instructions Recorded Confirmed Acetaminophen [Tylenol] 500 mg PO Q6HR PRN 12/03/22 12/03/22 Bismuth Subsalicylate 2 tab PO Q1HR PRN 12/03/22 12/03/22 Buprenorphine HCl/Naloxone HCl 1 each SL DAILY 12/03/22 12/03/22 [Suboxone 8 mg-2 mg Sl Film] Calcium Carbonate [Tums (Calcium 1,000 mg PO BID PRN 12/03/22 12/03/22 Carbonate 500mg)] Dicyclomine [Bentyl] 10 - 20 mg PO Q6HR PRN 12/03/22 12/03/22 Docusate Sodium 100Mg Capsule 100 mg PO BID PRN 12/03/22 12/03/22 [Colace 100Mg Capsule] Gabapentin [Neurontin] 300 mg PO TID PRN 12/03/22 12/03/22 Ibuprofen 600 mg PO Q6HR PRN 12/03/22 12/03/22 Loperamide [Imodium] 2 mg PO QID PRN 12/03/22 12/03/22 Loratadine [Claritin] 10 mg PO DAILY PRN 12/03/22 12/03/22 Multivitamin 1 each PO DAILY 12/03/22 12/03/22 ONDANSETRON ODT Prepack 2 [ZOFRAN 4 mg TL Q6H PRN 12/03/22 12/03/22 ODT Prepack 2] Promethazine [Phenergan] 12.5 mg PO TID PRN 12/03/22 12/03/22 Simethicone [Mylanta Gas Minis] 250 mg PO HS PRN 12/03/22 12/03/22 Tamsulosin [Flomax] 0.4 mg PO DAILY 12/03/22 12/03/22 Vitamin B Complex 1 each PO DAILY 12/03/22 12/03/22 bisacodyL [Dulcolax] 1 - 3 tab PO DAILY PRN 12/03/22 12/03/22 cloNIDine [Catapres] 0.1 mg PO Q4HR PRN 12/03/22 12/03/22 diphenhydrAMINE [Benadryl] 25 - 50 mg PO Q6HR PRN 12/03/22 12/03/22 hydrOXYzine HCL [Hydroxyzine HCl] 50 mg PO Q6HR PRN 12/03/22 12/03/22 methocarbamoL [Methocarbamol] 1,500 mg PO Q6HR PRN 12/03/22 12/03/22 polyethylene glycoL 3350 [Miralax] 17 gm ORAL DAILY PRN 12/03/22 12/03/22 traZODone [Desyrel] 50 - 100 mg PO HS PRN 12/03/22 12/03/22 - Allergies Allergies/Adverse Reactions: Allergies Allergy/AdvReac Type Severity Reaction Status Date / Time No Known Drug Allergies Allergy Verified 12/03/22 13:50 Review of Systems - Other Findings Other Findings: Review of systems placed in history of present illness per daughter and sister. Unable to get review of systems from the patient. Prior Level of Functionality: Able to dress himself, feed himself, drive a car. Lives in his own home that he inherited from his mom at her . Exam - Vital Signs Reviewed Vital Signs: Yes Vital Signs: Vital Signs x48h Temp Pulse Pulse Resp BP BP Pulse Ox 12/03/22 17:45 115 H 16 195/120 H 99 12/03/22 17:30 120 H 16 188/124 H 98 12/03/22 17:21 117 H 12/03/22 17:15 37.2 C 112 H 16 186/118 H 98 12/03/22 17:05 110 H 16 181/120 H 97 12/03/22 16:17 124 H 20 213/122 H 99 12/03/22 16:00 126 H 12/03/22 15:27 130 H 20 98 12/03/22 15:12 127 H 33 H 212/144 H 100 12/03/22 15:02 120 H 21 212/144 H 98 12/03/22 14:46 105 H 28 H 194/143 H 97 12/03/22 14:45 1445 C H 108 H 24 95 12/03/22 13:50 37.3 C 113 H 24 176/114 H 99 - Physical Exam General Appearance: positive: Other (Slender, balding, middle-aged white male that looks stated age, intubated, on propofol and fentanyl that is hypertensive, and starting to fight against his restraints) Eyes Bilateral: positive: PERRL, EOMI ENT: positive: No signs of dehydration Neck: positive: No JVD Respiratory: positive: No respiratory distress, Rhonchi, Other (SIMV, tidal volume 450, FiO2 40% now, rate of 12, PEEP of 5, pressure support of 10). negative: Wheezes, Rales Cardiovascular: positive: Regular rate & rhythm, Tachycardia Peripheral Pulses: positive: 1+ Abdomen: positive: Nml bowel sounds Skin: positive: Warm, Dry Extremities: positive: Full ROM, No pedal edema, Other (I have ordered nonviol ent restraints since he is starting to fight against the vent and had already had restraints placed in the ED) Neurologic/Psychiatric: positive: Other (Intubated on propofol and fentanyl and still starting to fight against the vent as the vecuronium has worn off) Conclusion/Plan - Problem List (1) Delirium due to methamphetamine intoxication Conclusion/Plan: This patient's presentation in the emergency room was that of acute intoxication. He was intubated to protect his airway. He was not intubated because he had cardiopulmonary issues. I explained that to the family.His vent settings from the emergency room shown to be hyperoxygenated. Blood gas was 214, pH 7.42, PCO2 34. So we reduce his FiO2 from 50% to 40%. And I have reduced his tidal volume from 500-450. Plan: Inpatient status I will keep him intubated overnight. I will use vecuronium and propofol to keep his agitation controlled. I will rewrite for restraint orders that are nonviolent. He had them written for in the emergency room and I will write them again now that he is in ICU. I expect that I will remove them once he is extubated. Tomorrow morning we will start weaning parameters to get him off the vent. But then I hope some of his psychosis and agitation will have abated. (2) Altered mental state Conclusion/Plan: Altered mental status occurred after Ativan, Haldol, ketamine. It is clear from the ER provider's discussion that he was becoming stuporous and needed airway protection. He is altered mental status is also altered due to the acute methamphetamine toxicity that is presumed by his behavior. I am hoping that all of this will resolve in the next few hours that would allow him to be safely extubated and hopefully to return to [facility]. Qualifiers: Altered mental status type: stupor Qualified Code(s): R40.1 - Stupor (3) Psychosis, paranoid Conclusion/Plan: This has been a decades long problem. He has never received a formal diagnosis. It is unclear whether his psychosis appeared after substance abuse or does he have substance abuse because he had psychosis. Family is looking to get a mental health provider. He is never agreed to it before. They are hoping that he gets into rehab, then sees a mental health provider. However if he gets through this withdrawal, and is medically stable, I would ask social work to see if it is possible to get this patient evaluated by [facility] to see if he could be an involuntary hold and sent to an inpatient psych facility. (4) Elevated CK Conclusion/Plan: CK is elevated to over 700. Most likely this is because of his agitation and restraints in the ED. I will repeat CK tomorrow morning and make sure that he is not going into rhabdomyolysis - Lab Results Lab results reviewed: Yes Fish Bones: 12/03/22 14:06 12/03/22 14:06 - Diagnostic Imaging Results Diagnostic Imaging Results: positive: Final report reviewed Diagnostic Imaging Results Comments: Chest x-ray has endotracheal tube in place, lungs are clear, NG tube is in place - EKG Results EKG Interpreted Independently: No Core Measures - Anticipated LOS I expect patient to be DC'd or transferred within 96 hours.: Yes - DVT/VTE - Prophylaxis VTE/DVT Device ordered at admit?: Yes
--- NOTE | 2022-12-03 20:10 | XRAY Report ---
PROCEDURE: Chest for Line Placement INDICATIONS: NG tube placement TECHNIQUE: One view of the chest was acquired. COMPARISON: Same-day radiograph FINDINGS: Surgical changes and devices: Enteric tube terminates beyond the [id number]. ET tube terminates i n the lower trachea. Lungs and pleura: No dense consolidation. No drainable pleural effusion. Mediastinum: Mediastinal contours appear normal. Heart size is normal. Bones and chest wall: Degenerative changes. IMPRESSION: ET tube terminates in the lower trachea. Enteric tube terminates beyond the [id number]. Reviewed by: Ricky Gomez MD on 12/03/2022 8:08 PM PDT Approved by: Ricky Gomez MD on 12/03/2022 8:08 PM PDT Station ID: [id number]
[2022-12-03] MEDS: CHLORHEXIDINE GLUCONATE 15 ML UDC PO SCH (21:19)
[2022-12-04] MEDS: SODIUM CHLORIDE FLUSH 0.9% 10 ML SYRINGE IVP SCH ×4 (02:00→22:10)
[2022-12-04] MEDS: PROPOFOL 1000 MG/100 ML 1,000 MG/100 ML BOTTLE IV SCH ×4 (02:04→19:54)
[2022-12-04] MEDS ORDERED: hydrALAZINE INJ 20 MG/ML VIAL IVP ONE (04:08)
--- NOTE | 2022-12-04 04:10 | PROVIDER PROGRESS NOTE ---
Sales Officer Note - Sales Officer Note Sales Officer Note: Consult Information Member Facility: [facility] Facility Requesting Clinician: Errol Barrow Patient Name: Ravinder Meneses Date of : 1965 Gender: Male Reason for Consult Reason for Consult: Abnormal Vital Clinical Note Clinical Note: per rn - "57M full code admitted to ICU for altered mental status related to potential drug abuse and/or withdrawal while requiring sedation, fentanyl drip, paralytic drip, and mechanical ventilation. Patient's blood pressure has been elevated through the night but now has greatly increased further to BP 200/130. HR 90, O2 sat 99%, Temp 37C, respiratory rate 16. Would appreciate PRN blood pressure control." hydralazine 10 mg iv x 1 dose
[2022-12-04] MEDS ORDERED: hydrALAZINE INJ 20 MG/ML VIAL ONE (04:19)
[2022-12-04 05:45] LABS: ABG BASE EXCESS -0.9 mmol/L (-2.0-3.0); ABG HCO3 23.2 mmol/L (22.0-26.0); ABG OXYGEN SATURATION 99 % (94-98); ABG PCO2 37 mmHg (34-45); ABG PH 7.42 (7.35-7.45); ABG TCO2 24.3 MMOL/L (21.0-29.0)
[2022-12-04 05:46] LABS: ABG PO2 174 mmHg (80-100); ALLEN TEST POSITIVE
[2022-12-04 05:47] LABS: ABG MODE OF VENTILATION SIMV; ABG RESPIRATORY RATE 16 b/min
[2022-12-04] MEDS: PANTOPRAZOLE 40 MG VIAL IVP SCH (06:13)
[2022-12-04] MEDS: SODIUM CHLORIDE 0.9% 1,000 ML IV SCH (06:24)
[2022-12-04] MEDS: VECURONIUM 100 MG in SODIUM CHLORIDE 0.9% 100ML 100 ML IV SCH (08:03)
[2022-12-04] MEDS: CHLORHEXIDINE GLUCONATE 15 ML UDC PO SCH ×2 (08:38→20:25)
[2022-12-04] MEDS ORDERED: LABETALOL 20 MG/4 ML SYRINGE IVP STA (09:30)
--- NOTE | 2022-12-04 10:33 | PHARMACY PROGRESS NOTE ---
- Best Possible Medication History Admit Date and Time: 12/03/22 1621 Processed by: Pharmacy Medication History completed: Yes Patient Interview: Pt unable to participate Secondary Source(s): Facility MAR as ONLY source Med list updated using MAR from [facility]. The patient has not started most of these medications, since they were new orders as of his admission date (12/03). As the person ultimately responsible for medication therapy, providers are able to order a medication from an existing home medication list in [facility] via the "Reconcile Routine" prior to Confirmation of that medication by marketing support assistant. Such practice is discouraged except when the physician, in their clinical judgment, deems that a medical need exists for a medication without regard to previous use.
[2022-12-04] MEDS: hydrALAZINE INJ 20 MG/ML VIAL IVP PRN ×2 (12:06→22:33)
--- NOTE | 2022-12-04 13:11 | XRAY Report ---
PROCEDURE: Chest 1 View X-Ray INDICATIONS: Intubated, wheezing on L side TECHNIQUE: One view of the chest was acquired. COMPARISON: 12/03/2022 FINDINGS: Surgical changes and devices: Enteric tube in the stomach. Endotracheal tube in satisfactory positio n above the kenya. Lungs and pleura: There is increasing reticular opacity in the right lower lung and to a lesser exte nt perihilar region on the left. No dense consolidations, effusion, or pneumothorax. Mediastinum: Mediastinal contours appear normal. Heart size is normal. Bones and chest wall: No suspicious bony lesions. Overlying soft tissues appear unremarkable. IMPRESSION: 1. Expected location of support tubes. 2. Increasing mixed interstitial and alveolar opacities mainly in the right lower lung and in the lef t perihilar region. Findings may indicate interstitial pneumonitis, fluid overload, or aspiration. Reviewed by: Marilyn Burns MD on 12/04/2022 12:10 PM AKLUZ MARIA Approved by: Marilyn Burns MD on 12/04/2022 12:10 PM AKDT Station ID: [id number]
--- NOTE | 2022-12-04 13:40 | PROVIDER PROGRESS NOTE ---
Subjective - Subjective Pt reports feeling: No change (He remains intubated on vent and ng to drainage) Objective - Vital Signs/Intake & Output Reviewed Vital Signs: Yes Vital Signs: Vital Signs Temp Pulse Pulse Resp BP BP Pulse Ox 12/04/22 13:00 85 22 176/96 H 176/96 H 99 12/04/22 12:15 81 176/90 H 12/04/22 12:08 88 169/108 H 12/04/22 12:02 75 181/97 H 12/04/22 11:14 68 12/04/22 11:00 37.4 C 66 20 169/93 H 97 12/04/22 10:15 70 171/99 H 12/04/22 10:00 67 16 159/93 H 97 12/04/22 09:43 95 185/104 H O2 Flow Rate 12/04/22 13:00 30 12/04/22 12:15 12/04/22 12:08 12/04/22 12:02 12/04/22 11:14 12/04/22 11:00 30 12/04/22 10:15 12/04/22 10:00 30 12/04/22 09:43 Intake & Output: Intake & Output 12/01/22 12/02/22 12/03/22 12/04/22 23:59 23:59 23:59 23:59 Intake Total 9013.036 4408.321 Output Total 530 642 Balance 717.525 835.321 - Objective General Appearance: positive: Other (Sedated on IV fentanyl and propofol, pancuronium was stopped) Eyes Bilateral: positive: No lid inflammation ENT: positive: ENT inspection nml, No signs of dehydration Neck: positive: Nml inspection, No JVD Respiratory: positive: No respiratory distress (Intubated, on the vent), Wheezes (Left lateral lung field) Cardiovascular: positive: Regular rate & rhythm, No murmur Abdomen: positive: No distention Skin: positive: Warm, Dry Extremities: positive: No pedal edema Neurologic/Psychiatric: positive: Other (Sedated on the vent) - Lab Results Fish Bones: 12/03/22 14:06 12/03/22 14:06 Other Labs: Lab Results x24hrs 12/04/22 12/04/22 12/03/22 Range/Units 05:37 04:21 17:40 WBC (4.8-10.8) x10^3/uL RBC (4.70-6.10) 10^6/uL Hgb (14.0-18.0) g/dL Hct (42.0-52.0) % MCV (80.0-94.0) fL MCH (27.0-31.0) pg MCHC (32.0-36.0) g/dL RDW (12.0-15.0) % Plt Count (130-450) 10^3/uL MPV (7.4-11.4) fL Neut # (Auto) (1.5-6.6) 10^3/uL Lymph # (Auto) (1.5-3.5) 10^3/uL [place] # (Auto) (0.0-1.0) 10^3/uL Eos # (Auto) (0.0-0.7) 10^3/uL Baso # (Auto) (0.0-0.1) 10^3/uL Absolute Nucleated RBC x10^3/uL Nucleated RBC % /100WBC Bld Gas Analysis Time 1971 4277 Sample Site RIGHT RADIAL RIGHT RADIAL ABG pH 7.42 7.42 (7.35-7.45) ABG pCO2 37 34 (34-45) mmHg ABG pO2 174 H* 214 H* (80-100) mmHg ABG HCO3 23.2 21.8 L (22.0-26.0) mmol/L ABG Total CO2 24.3 22.9 (21.0-29.0) MMOL/L ABG O2 Saturation 99 H 99 H (94-98) % ABG Base Excess -0.9 -1.8 (-2.0-3.0) mmol/L Doug Test POSITIVE POSITIVE Respiration Rate 16 16 b/min O2 Delivery Device VENTILATOR VENTILATOR Vent Mode SIMV SIMV FiO2 40.00 50.00 Tidal Volume 450 500 mL PEEP 5 5 cmH2O Pressure Support Vent 10 10 cmH2O Sodium (135-145) mmol/L Potassium (3.5-5.0) mmol/L Chloride (101-111) mmol/L Carbon Dioxide (21-32) mmol/L Anion Gap (6-13) BUN (6-20) mg/dL Creatinine (0.6-1.2) mg/dL Estimated GFR (MDRD) (>89) Glucose (70-100) mg/dL Calcium (8.5-10.3) mg/dL Total Bilirubin (0.2-1.0) mg/dL AST (10-42) IU/L ALT (10-60) IU/L Alkaline Phosphatase (42-121) IU/L Total Creatine Kinase 518 H (22-269) IU/L Total Protein (6.7-8.2) g/dL Albumin (3.2-5.5) g/dL Globulin (2.1-4.2) g/dL Albumin/Globulin Ratio (1.0-2.2) Lipase (22-51) U/L Nasal Screen MRSA (PCR) (NEGATIVE) Urine Opiates Screen (NEGATIVE) Ur Oxycodone Screen (NEGATIVE) Urine Methadone Screen (NEGATIVE) Ur Propoxyphene Screen (NEGATIVE) Ur Barbiturates Screen (NEGATIVE) Ur Tricyclics Screen (NEGATIVE) Ur Phencyclidine Scrn (NEGATIVE) Ur Amphetamine Screen (NEGATIVE) U Methamphetamines Scrn (NEGATIVE) U Benzodiazepines Scrn (NEGATIVE) Urine Cocaine Screen (NEGATIVE) U Cannabinoids Screen (NEGATIVE) Ethyl Alcohol mg/dL 12/03/22 12/03/22 12/03/22 Range/Units 17:20 16:10 14:06 WBC (4.8-10.8) x10^3/uL RBC (4.70-6.10) 10^6/uL Hgb (14.0-18.0) g/dL Hct (42.0-52.0) % MCV (80.0-94.0) fL MCH (27.0-31.0) pg MCHC (32.0-36.0) g/dL RDW (12.0-15.0) % Plt Count (130-450) 10^3/uL MPV (7.4-11.4) fL Neut # (Auto) (1.5-6.6) 10^3/uL Lymph # (Auto) (1.5-3.5) 10^3/uL [place] # (Auto) (0.0-1.0) 10^3/uL Eos # (Auto) (0.0-0.7) 10^3/uL Baso # (Auto) (0.0-0.1) 10^3/uL Absolute Nucleated RBC x10^3/uL Nucleated RBC % /100WBC Bld Gas Analysis Time Sample Site ABG pH (7.35-7.45) ABG pCO2 (34-45) mmHg ABG pO2 (80-100) mmHg ABG HCO3 (22.0-26.0) mmol/L ABG Total CO2 (21.0-29.0) MMOL/L ABG O2 Saturation (94-98) % ABG Base Excess (-2.0-3.0) mmol/L Doug Test Respiration Rate b/min O2 Delivery Device Vent Mode FiO2 Tidal Volume mL PEEP cmH2O Pressure Support Vent cmH2O Sodium (135-145) mmol/L Potassium (3.5-5.0) mmol/L Chloride (101-111) mmol/L Carbon Dioxide (21-32) mmol/L Anion Gap (6-13) BUN (6-20) mg/dL Creatinine (0.6-1.2) mg/dL Estimated GFR (MDRD) (>89) Glucose (70-100) mg/dL Calcium (8.5-10.3) mg/dL Total Bilirubin (0.2-1.0) mg/dL AST (10-42) IU/L ALT (10-60) IU/L Alkaline Phosphatase (42-121) IU/L Total Creatine Kinase 746 H (22-269) IU/L Total Protein (6.7-8.2) g/dL Albumin (3.2-5.5) g/dL Globulin (2.1-4.2) g/dL Albumin/Globulin Ratio (1.0-2.2) Lipase (22-51) U/L Nasal Screen MRSA (PCR) NEGATIVE (NEGATIVE) Urine Opiates Screen NEGATIVE (NEGATIVE) Ur Oxycodone Screen NEGATIVE (NEGATIVE) Urine Methadone Screen NEGATIVE (NEGATIVE) Ur Propoxyphene Screen NEGATIVE (NEGATIVE) Ur Barbiturates Screen NEGATIVE (NEGATIVE) Ur Tricyclics Screen NEGATIVE (NEGATIVE) Ur Phencyclidine Scrn NEGATIVE (NEGATIVE) Ur Amphetamine Screen POSITIVE H (NEGATIVE) U Methamphetamines Scrn POSITIVE H (NEGATIVE) U Benzodiazepines Scrn NEGATIVE (NEGATIVE) Urine Cocaine Screen NEGATIVE (NEGATIVE) U Cannabinoids Screen NEGATIVE (NEGATIVE) Ethyl Alcohol mg/dL 12/03/22 12/03/22 Range/Units 14:06 14:06 WBC 9.4 (4.8-10.8) x10^3/uL RBC 4.82 (4.70-6.10) 10^6/uL Hgb 13.5 L (14.0-18.0) g/dL Hct 39.8 L (42.0-52.0) % MCV 82.6 (80.0-94.0) fL MCH 28.0 (27.0-31.0) pg MCHC 33.9 (32.0-36.0) g/dL RDW 12.5 (12.0-15.0) % Plt Count 291 (130-450) 10^3/uL MPV 8.4 (7.4-11.4) fL Neut # (Auto) 8.0 H (1.5-6.6) 10^3/uL Lymph # (Auto) 0.9 L (1.5-3.5) 10^3/uL [place] # (Auto) 0.4 (0.0-1.0) 10^3/uL Eos # (Auto) 0.1 (0.0-0.7) 10^3/uL Baso # (Auto) 0.1 (0.0-0.1) 10^3/uL Absolute Nucleated RBC 0.00 x10^3/uL Nucleated RBC % 0.0 /100WBC Bld Gas Analysis Time Sample Site ABG pH (7.35-7.45) ABG pCO2 (34-45) mmHg ABG pO2 (80-100) mmHg ABG HCO3 (22.0-26.0) mmol/L ABG Total CO2 (21.0-29.0) MMOL/L ABG O2 Saturation (94-98) % ABG Base Excess (-2.0-3.0) mmol/L Doug Test Respiration Rate b/min O2 Delivery Device Vent Mode FiO2 Tidal Volume mL PEEP cmH2O Pressure Support Vent cmH2O Sodium 137 (135-145) mmol/L Potassium 3.7 (3.5-5.0) mmol/L Chloride 104 (101-111) mmol/L Carbon Dioxide 24 (21-32) mmol/L Anion Gap 9.0 (6-13) BUN 19 (6-20) mg/dL Creatinine 1.0 (0.6-1.2) mg/dL Estimated GFR (MDRD) 76 L (>89) Glucose 116 H (70-100) mg/dL Calcium 9.2 (8.5-10.3) mg/dL Total Bilirubin 0.9 (0.2-1.0) mg/dL AST 37 (10-42) IU/L ALT 34 (10-60) IU/L Alkaline Phosphatase 63 (42-121) IU/L Total Creatine Kinase (22-269) IU/L Total Protein 7.2 (6.7-8.2) g/dL Albumin 3.5 (3.2-5.5) g/dL Globulin 3.7 (2.1-4.2) g/dL Albumin/Globulin Ratio 0.9 L (1.0-2.2) Lipase 24 (22-51) U/L Nasal Screen MRSA (PCR) (NEGATIVE) Urine Opiates Screen (NEGATIVE) Ur Oxycodone Screen (NEGATIVE) Urine Methadone Screen (NEGATIVE) Ur Propoxyphene Screen (NEGATIVE) Ur Barbiturates Screen (NEGATIVE) Ur Tricyclics Screen (NEGATIVE) Ur Phencyclidine Scrn (NEGATIVE) Ur Amphetamine Screen (NEGATIVE) U Methamphetamines Scrn (NEGATIVE) U Benzodiazepines Scrn (NEGATIVE) Urine Cocaine Screen (NEGATIVE) U Cannabinoids Screen (NEGATIVE) Ethyl Alcohol < 5.0 mg/dL Assessment/Plan - Problem List (1) Delirium due to methamphetamine intoxication Impression: This patient's presentation in the emergency room was that of acute intoxication. He was intubated to protect his airway. He was not intubated because he had cardiopulmonary issues. His ventilator settings were reviewed by me today Plan: Remain in the ICU, tried to decrease his sedatives for a goal of extubation I will use fentanyl and propofol to keep his agitation controlled. The goal may be that he returns to [facility] after he is medically stabilized, for further substance use rehab. (2) Altered mental state - R41.82 Conclusion/Plan: Altered mental status occurred after Ativan, Haldol, ketamine. It is clear from the ER provider's discussion that he was becoming stuporous and needed airway protection. His altered mental status was also due to the acute methamphetamine toxicity that was presumed by his behavior at admission. Plan: As in #1 (3) On mechanically assisted ventilation He was intubated in the ER when he had respiratory depression from having received sedatives for agitation. He is on propofol drip, fentanyl drip and vecuronium drip Plan: We will discontinue the vecuronium drip. We will then work on weaning down to off his fentanyl. If he is stable with that we will then work on propofol titration to off to see if he has adequate respiratory parameters to be extubated>> Because of audible wheezing in the left side and a fever spike, a chest x-ray was done which shows probable infiltrate. He will not be extubated today (4) Abnormal CXR A follow-up chest x-ray was done before he was to be extubated. This shows a combination of volume overload and possible interstitial changes of atypical infection plus beginning of opacities which were consistent with aspiration Plan: Because of his altered mental status, I suspect he has aspiration pneumonia and therefore will order blood cultures x2 and then start empiric IV cefepime and IV Flagyl There is no history of MRSA, no vancomycin will be started. (5) Psychosis, paranoid Conclusion/Plan: This has been a decades long problem. He has never received a formal diagnosis. It is unclear whether his psychosis appeared after substance abuse or does he have substance abuse because he had psychosis. Family is looking to get a mental health provider. He has never agreed to it before. They are hoping that he gets into rehab, then sees a mental health provider. However if he gets through this withdrawal, and is medically stable, I would ask social work to see if it is possible to get this patient evaluated by [facility] to see if he could be an involuntary hold and sent to an inpatient psych facility. (6) Elevated CK Conclusion/Plan: CK was elevated to over 700. Most likely this is because of his agitation against restraints, when in the ED. The repeat CK level has decreased slightly to 518 (All labs were reviewed). Plan: We will continue with hydration but the rate needs to be decreased because of volume overload Follow CK daily
[2022-12-04] MEDS: ACETAMINOPHEN 325 MG TABLET PO PRN ×3 (14:13→22:46)
[2022-12-04] MEDS ORDERED: SODIUM CHLORIDE 0.9% 1,000 ML IV SCH (14:17)
[2022-12-04 14:30] LABS: BASOPHILS # (AUTO) 0.1 10^3/uL (0.0-0.1); BASOPHILS % (AUTO) 0.2 %; HCT - HEMATOCRIT 43.2 % (42.0-52.0); HGB - HEMOGLOBIN 14.2 g/dL (14.0-18.0); LYMPHOCYTES # (AUTO) 0.5 10^3/uL (1.5-3.5); LYMPHOCYTES % (AUTO) 2.3 %; MEAN CORPUSCULAR HEMOGLOBIN 28.1 pg (27.0-31.0); MEAN CORPUSCULAR HGB CONC 32.9 g/dL (32.0-36.0); MEAN CORPUSCULAR VOLUME 85.4 fL (80.0-94.0); MEAN PLATELET VOLUME 8.4 fL (7.4-11.4); MONOCYTES # (AUTO) 1.1 10^3/uL (0.0-1.0); MONOCYTES % (AUTO) 5.2 %; NEUTROPHILS # (AUTO) 18.5 10^3/uL (1.5-6.6); NEUTROPHILS % (AUTO) 91.9 %; PLT - PLATELET COUNT 291 10^3/uL (130-450); RED BLOOD COUNT 5.06 10^6/uL (4.70-6.10); RED CELL DISTRIBUTION WIDTH 13.1 % (12.0-15.0); WHITE BLOOD COUNT 20.1 x10^3/uL (4.8-10.8)
[2022-12-04] MEDS: MORPHINE 2 MG/ML CARPUJECT IVP PRN (14:39)
[2022-12-04 14:42] LABS: ALBUMIN 3.3 g/dL (3.2-5.5); ALBUMIN/GLOBULIN RATIO 0.8 (1.0-2.2); BILIRUBIN,TOTAL 0.8 mg/dL (0.2-1.0); CALCIUM 9.1 mg/dL (8.5-10.3); CREATININE 0.8 mg/dL (0.6-1.2); POTASSIUM 3.5 mmol/L (3.5-5.0); TOTAL PROTEIN 7.2 g/dL (6.7-8.2)
[2022-12-04 14:45] LABS: PLATELET ESTIMATE, MANUAL NORMAL (130-450,000) (NORMAL); PLATELET MORPHOLOGY NORMAL APPEARANCE (NORMAL); RBC MORPHOLOGY (MULTIPLE) NORMAL APPEARANCE (NORMAL); SLIDE REVIEW? Indicated
[2022-12-04] MEDS ORDERED: fentaNYL 2,500 MCG in SODIUM CHLORIDE 0.9% 200 ML IV SCH (15:00)
[2022-12-04] MEDS ORDERED: fentaNYL 2,500 MCG/250 ML 2,500 MCG/250 ML BAG IV SCH (15:00)
[2022-12-04] MEDS: CEFEPIME 2 GM in SODIUM CHLORIDE 0.9% MINIBAG 100 ML IV SCH ×2 (15:07→22:01)
[2022-12-04] MEDS: LABETALOL VIAL 200 MG in SODIUM CHLORIDE 0.9% 160 ML IV SCH ×3 (15:28→20:04)
[2022-12-04] MEDS: metroNIDAZOLE 500 MG/100 ML 500 MG/100 ML BAG IV SCH ×2 (15:49→22:54)
[2022-12-04] MEDS ORDERED: LABETALOL 20 MG/4 ML SYRINGE IVP PRN (17:14)
[2022-12-04] MEDS: POTASSIUM CHLORIDE 20 MEQ/15 ML UDC PO SCH ×2 (17:21→20:58)
[2022-12-04] MEDS: FAMOTIDINE 20 MG/2 ML VIAL IVP SCH (20:25)
[2022-12-05] MEDS: PROPOFOL 1000 MG/100 ML 1,000 MG/100 ML BOTTLE IV SCH ×2 (01:14→08:24)
[2022-12-05 01:22] LABS: CALCIUM, IONIZED 1.13 mmol/L (1.15-1.33); VBG PH 7.473 (7.31-7.41)
[2022-12-05 01:34] LABS: MAGNESIUM 1.9 mg/dL (1.7-2.8); PHOSPHORUS 2.9 mg/dL (2.5-4.6); POTASSIUM 4.1 mmol/L (3.5-5.0)
[2022-12-05] MEDS: ACETAMINOPHEN 325 MG TABLET PO PRN ×4 (04:17→21:55)
[2022-12-05] MEDS: hydrALAZINE INJ 20 MG/ML VIAL IVP PRN ×2 (04:28→10:59)
[2022-12-05 05:28] LABS: CALCIUM, IONIZED 1.13 mmol/L (1.15-1.33); VBG PH 7.421 (7.31-7.41)
[2022-12-05 05:45] LABS: PHOSPHORUS 2.8 mg/dL (2.5-4.6); POTASSIUM 3.8 mmol/L (3.5-5.0)
[2022-12-05] MEDS: POTASSIUM CHLOR 10 MEQ/100 ML 10 MEQ/100 ML BAG IV SCH ×2 (06:21→07:45)
[2022-12-05] MEDS: metroNIDAZOLE 500 MG/100 ML 500 MG/100 ML BAG IV SCH ×3 (06:21→22:17)
[2022-12-05 06:27] LABS: ABG BASE EXCESS 1.5 mmol/L (-2.0-3.0); ABG HCO3 24.8 mmol/L (22.0-26.0); ABG OXYGEN SATURATION 99 % (94-98); ABG PCO2 35 mmHg (34-45); ABG PH 7.47 (7.35-7.45); ABG PO2 133 mmHg (80-100); ABG TCO2 25.9 MMOL/L (21.0-29.0); ALLEN TEST POSITIVE
[2022-12-05 06:28] LABS: ABG MODE OF VENTILATION SIMV; ABG RESPIRATORY RATE 16 b/min
--- NOTE | 2022-12-05 09:12 | XRAY Report ---
PROCEDURE: Chest 1 View X-Ray INDICATIONS: F/U pneumonia TECHNIQUE: One view of the chest was acquired. COMPARISON: 12/04/2022. FINDINGS: Surgical changes and devices: ET tube tip is approximately 3.3 cm above the kenya. NG tube tip is b elow the left hemidiaphragm.. Lungs and pleura: No pleural effusions or pneumothorax. Persistent subtle airspace opacities in the right infrahilar region not significantly changed from previous day. There is interval improvement in left lung aeration. Mediastinum: Mediastinal contours appear normal. Heart size is normal. Bones and chest wall: No suspicious bony lesions. Overlying soft tissues appear unremarkable. IMPRESSION: Suggestion of small right infrahilar infiltrate versus atelectasis not significantly changed from pre vious day. Interval improvement in left lung aeration. No pleural effusion or pneumothorax. Reviewed by: Quoc Venegas MD on 12/05/2022 9:10 AM PDT Approved by: Quoc Venegas MD on 12/05/2022 9:10 AM PDT Station ID: [id number]
[2022-12-05] MEDS: FAMOTIDINE 20 MG/2 ML VIAL IVP SCH ×2 (09:22→21:44)
[2022-12-05] MEDS: CEFEPIME 2 GM in SODIUM CHLORIDE 0.9% MINIBAG 100 ML IV SCH ×2 (09:22→21:43)
[2022-12-05] MEDS ORDERED: LABETALOL 20 MG/4 ML SYRINGE IVP PRN (10:38)
[2022-12-05 10:43] LABS: BASOPHILS # (AUTO) 0.1 10^3/uL (0.0-0.1); BASOPHILS % (AUTO) 0.2 %; EOSINOPHILS % (AUTO) 0.1 %; HCT - HEMATOCRIT 44.4 % (42.0-52.0); HGB - HEMOGLOBIN 14.2 g/dL (14.0-18.0); LYMPHOCYTES # (AUTO) 0.9 10^3/uL (1.5-3.5); LYMPHOCYTES % (AUTO) 4.7 %; MEAN CORPUSCULAR HEMOGLOBIN 27.8 pg (27.0-31.0); MEAN CORPUSCULAR VOLUME 86.9 fL (80.0-94.0); MEAN PLATELET VOLUME 8.6 fL (7.4-11.4); MONOCYTES # (AUTO) 1.5 10^3/uL (0.0-1.0); MONOCYTES % (AUTO) 7.5 %; NEUTROPHILS # (AUTO) 17.5 10^3/uL (1.5-6.6); PLT - PLATELET COUNT 282 10^3/uL (130-450); RED BLOOD COUNT 5.11 10^6/uL (4.70-6.10); RED CELL DISTRIBUTION WIDTH 13.2 % (12.0-15.0); WHITE BLOOD COUNT 20.1 x10^3/uL (4.8-10.8)
[2022-12-05 10:46] LABS: SLIDE REVIEW? Indicated
[2022-12-05 11:01] LABS: CALCIUM 8.9 mg/dL (8.5-10.3); CREATININE 0.8 mg/dL (0.6-1.2); POTASSIUM 3.9 mmol/L (3.5-5.0)
[2022-12-05] MEDS: SODIUM CHLORIDE FLUSH 0.9% 10 ML SYRINGE IVP SCH ×2 (11:04→17:21)
[2022-12-05 11:17] LABS: PLATELET ESTIMATE, MANUAL NORMAL (130-450,000) (NORMAL); PLATELET MORPHOLOGY NORMAL APPEARANCE (NORMAL); RBC MORPHOLOGY (MULTIPLE) NORMAL APPEARANCE (NORMAL)
[2022-12-05] MEDS: hydrALAZINE INJ 20 MG/ML VIAL IVP SCH ×2 (11:37→21:50)
[2022-12-05] MEDS: CHLORHEXIDINE GLUCONATE 15 ML UDC PO SCH ×2 (11:37→21:43)
--- NOTE | 2022-12-05 11:39 | ANESTHESIA PROCEDURE NOTE ---
Anesth Central Line Template - Central Line Central Line Preparation: Unable to obtain consent (intubated, sedated), Time out completed, Ultrasound used, Sterile prep and drape Central line location: Right IJ Central line type: Triple lumen Central line catheter tip site resides: Superior vena cava (SVC) Central line aftercare: Chlorhexidine disc placed, Secured, Placement confirmed, No pneumothorax, No complications, Bundle checklist complete, Pt tolerated well, Other Other Info/Details: secured at 18cm, bio disc, tegaderm after ports easily aspirate and flushx3.
--- NOTE | 2022-12-05 11:55 | XRAY Report ---
PROCEDURE: Chest for Line Placement INDICATIONS: New R IJ CVL TECHNIQUE: One view of the chest was acquired. COMPARISON: 12/05/2022, 12/04/2022. FINDINGS: Surgical changes and devices: ET tube and NG tube positions unchanged. Interval placement of right i nternal jugular central venous catheter, the tip is in the region of SVC.. Lungs and pleura: No pleural effusions or pneumothorax. Airspace opacity in right infrahilar region is again noted. Left lung is clear.. Mediastinum: Mediastinal contours appear normal. Heart size is normal. Bones and chest wall: No suspicious bony lesions. Overlying soft tissues appear unremarkable. IMPRESSION: 1. Right internal jugular central venous catheter tip is in SVC. 2. Persistent right lower lobe infiltrate. No pleural effusion or pneumothorax. Reviewed by: Quoc Venegas MD on 12/05/2022 11:54 AM PDT Approved by: Quoc Venegas MD on 12/05/2022 11:54 AM PDT Station ID: [id number]
[2022-12-05] MEDS ORDERED: POTASSIUM CHLOR 20 MEQ/100 ML 20 MEQ/100 ML BAG IV ONE ×2 (12:42→19:41)
--- NOTE | 2022-12-05 16:23 | PROVIDER PROGRESS NOTE ---
Subjective - Subjective Pt reports feeling: Improved (Patient waking up slowly after sedatives have been turned off, he is on CPAP on the ventilator, able to follow some commands) Objective - Vital Signs/Intake & Output Reviewed Vital Signs: Yes Vital Signs: Vital Signs Temp Pulse Pulse Resp BP Pulse Ox O2 Flow Rate 12/05/22 15:00 37.9 C 67 21 165/81 H 97 12/05/22 14:40 78 12/05/22 14:00 37.8 C 78 17 188/98 H 98 25 12/05/22 13:15 87 12/05/22 13:00 66 20 97 25 12/05/22 12:51 62 Intake & Output: Intake & Output 12/02/22 12/03/22 12/04/22 12/05/22 23:59 23:59 23:59 23:59 Intake Total 6649.737 2971.346 880.352 Output Total 530 1312 2035 Balance 572.185 3894.346 1154.648 - Objective General Appearance: positive: Other (Male pattern baldness. He appears diaphoretic, he is in mild distress, is signaling that he wants the ET tube pulled out) Eyes Bilateral: positive: Normal inspection ENT: positive: ENT inspection nml, No signs of dehydration, Other (ET tube and NG tube in place) Neck: positive: Nml inspection, No JVD Respiratory: positive: No respiratory distress (Currently on CPAP on the ventilator), Wheezes (Left-sided) Cardiovascular: positive: Regular rate & rhythm Abdomen: positive: No distention Skin: positive: Warm, Dry Extremities: positive: Non-tender, No pedal edema Neurologic/Psychiatric: positive: Other (Lethargic, moves all extremities, follows command) - Lab Results Fish Bones: 12/05/22 10:37 12/05/22 10:37 Other Labs: Lab Results x24hrs 12/05/22 12/05/22 12/05/22 Range/Units 10:37 10:37 10:37 WBC 20.1 H (4.8-10.8) x10^3/uL RBC 5.11 (4.70-6.10) 10^6/uL Hgb 14.2 (14.0-18.0) g/dL Hct 44.4 (42.0-52.0) % MCV 86.9 (80.0-94.0) fL MCH 27.8 (27.0-31.0) pg MCHC 32.0 (32.0-36.0) g/dL RDW 13.2 (12.0-15.0) % Plt Count 282 (130-450) 10^3/uL MPV 8.6 (7.4-11.4) fL Neut # (Auto) 17.5 H (1.5-6.6) 10^3/uL Lymph # (Auto) 0.9 L (1.5-3.5) 10^3/uL [place] # (Auto) 1.5 H (0.0-1.0) 10^3/uL Eos # (Auto) 0.0 (0.0-0.7) 10^3/uL Baso # (Auto) 0.1 (0.0-0.1) 10^3/uL Absolute Nucleated RBC 0.00 x10^3/uL Nucleated RBC % 0.0 /100WBC Manual Slide Review Indicated Platelet Estimate NORMAL (130-450,000) (NORMAL) Platelet Morphology NORMAL APPEARANCE (NORMAL) RBC Morph Micro Appear NORMAL APPEARANCE (NORMAL) Bld Gas Analysis Time Sample Site ABG pH (7.35-7.45) ABG pCO2 (34-45) mmHg ABG pO2 (80-100) mmHg ABG HCO3 (22.0-26.0) mmol/L ABG Total CO2 (21.0-29.0) MMOL/L ABG O2 Saturation (94-98) % ABG Base Excess (-2.0-3.0) mmol/L Doug Test VBG pH (7.31-7.41) Ionized Calcium (1.15-1.33) mmol/L Respiration Rate b/min O2 Delivery Device Vent Mode FiO2 Tidal Volume mL PEEP cmH2O Pressure Support Vent cmH2O Sodium 136 (135-145) mmol/L Potassium 3.9 (3.5-5.0) mmol/L Chloride 103 (101-111) mmol/L Carbon Dioxide 26 (21-32) mmol/L Anion Gap 7.0 (6-13) BUN 23 H (6-20) mg/dL Creatinine 0.8 (0.6-1.2) mg/dL Estimated GFR (MDRD) 99 (>89) Glucose 123 H (70-100) mg/dL Calcium 8.9 (8.5-10.3) mg/dL Phosphorus (2.5-4.6) mg/dL Magnesium (1.7-2.8) mg/dL Triglycerides 71 ( - 149) mg/dL SARS-CoV-2 (PCR) 12/05/22 12/05/22 12/05/22 Range/Units 10:37 09:00 06:20 WBC (4.8-10.8) x10^3/uL RBC (4.70-6.10) 10^6/uL Hgb (14.0-18.0) g/dL Hct (42.0-52.0) % MCV (80.0-94.0) fL MCH (27.0-31.0) pg MCHC (32.0-36.0) g/dL RDW (12.0-15.0) % Plt Count (130-450) 10^3/uL MPV (7.4-11.4) fL Neut # (Auto) (1.5-6.6) 10^3/uL Lymph # (Auto) (1.5-3.5) 10^3/uL [place] # (Auto) (0.0-1.0) 10^3/uL Eos # (Auto) (0.0-0.7) 10^3/uL Baso # (Auto) (0.0-0.1) 10^3/uL Absolute Nucleated RBC x10^3/uL Nucleated RBC % /100WBC Manual Slide Review Platelet Estimate (NORMAL) Platelet Morphology (NORMAL) RBC Morph Micro Appear (NORMAL) Bld Gas Analysis Time 0627 Sample Site RIGHT RADIAL ABG pH 7.47 H (7.35-7.45) ABG pCO2 35 (34-45) mmHg ABG pO2 133 H (80-100) mmHg ABG HCO3 24.8 (22.0-26.0) mmol/L ABG Total CO2 25.9 (21.0-29.0) MMOL/L ABG O2 Saturation 99 H (94-98) % ABG Base Excess 1.5 (-2.0-3.0) mmol/L Doug Test POSITIVE VBG pH (7.31-7.41) Ionized Calcium (1.15-1.33) mmol/L Respiration Rate 16 b/min O2 Delivery Device VENTILATOR Vent Mode SIMV FiO2 30.00 Tidal Volume 450 mL PEEP 5 cmH2O Pressure Support Vent 10 cmH2O Sodium (135-145) mmol/L Potassium 3.8 (3.5-5.0) mmol/L Chloride (101-111) mmol/L Carbon Dioxide (21-32) mmol/L Anion Gap (6-13) BUN (6-20) mg/dL Creatinine (0.6-1.2) mg/dL Estimated GFR (MDRD) (>89) Glucose (70-100) mg/dL Calcium (8.5-10.3) mg/dL Phosphorus (2.5-4.6) mg/dL Magnesium (1.7-2.8) mg/dL Triglycerides ( - 149) mg/dL SARS-CoV-2 (PCR) NOT DETECTED 12/05/22 12/05/22 12/05/22 Range/Units 04:49 04:49 01:15 WBC (4.8-10.8) x10^3/uL RBC (4.70-6.10) 10^6/uL Hgb (14.0-18.0) g/dL Hct (42.0-52.0) % MCV (80.0-94.0) fL MCH (27.0-31.0) pg MCHC (32.0-36.0) g/dL RDW (12.0-15.0) % Plt Count (130-450) 10^3/uL MPV (7.4-11.4) fL Neut # (Auto) (1.5-6.6) 10^3/uL Lymph # (Auto) (1.5-3.5) 10^3/uL [place] # (Auto) (0.0-1.0) 10^3/uL Eos # (Auto) (0.0-0.7) 10^3/uL Baso # (Auto) (0.0-0.1) 10^3/uL Absolute Nucleated RBC x10^3/uL Nucleated RBC % /100WBC Manual Slide Review Platelet Estimate (NORMAL) Platelet Morphology (NORMAL) RBC Morph Micro Appear (NORMAL) Bld Gas Analysis Time Sample Site ABG pH (7.35-7.45) ABG pCO2 (34-45) mmHg ABG pO2 (80-100) mmHg ABG HCO3 (22.0-26.0) mmol/L ABG Total CO2 (21.0-29.0) MMOL/L ABG O2 Saturation (94-98) % ABG Base Excess (-2.0-3.0) mmol/L Doug Test VBG pH 7.421 H 7.473 H (7.31-7.41) Ionized Calcium 1.13 L 1.13 L (1.15-1.33) mmol/L Respiration Rate b/min O2 Delivery Device Vent Mode FiO2 Tidal Volume mL PEEP cmH2O Pressure Support Vent cmH2O Sodium (135-145) mmol/L Potassium 3.8 (3.5-5.0) mmol/L Chloride (101-111) mmol/L Carbon Dioxide (21-32) mmol/L Anion Gap (6-13) BUN (6-20) mg/dL Creatinine (0.6-1.2) mg/dL Estimated GFR (MDRD) (>89) Glucose (70-100) mg/dL Calcium (8.5-10.3) mg/dL Phosphorus 2.8 (2.5-4.6) mg/dL Magnesium 2.0 (1.7-2.8) mg/dL Triglycerides ( - 149) mg/dL SARS-CoV-2 (PCR) 12/05/22 Range/Units 01:15 WBC (4.8-10.8) x10^3/uL RBC (4.70-6.10) 10^6/uL Hgb (14.0-18.0) g/dL Hct (42.0-52.0) % MCV (80.0-94.0) fL MCH (27.0-31.0) pg MCHC (32.0-36.0) g/dL RDW (12.0-15.0) % Plt Count (130-450) 10^3/uL MPV (7.4-11.4) fL Neut # (Auto) (1.5-6.6) 10^3/uL Lymph # (Auto) (1.5-3.5) 10^3/uL [place] # (Auto) (0.0-1.0) 10^3/uL Eos # (Auto) (0.0-0.7) 10^3/uL Baso # (Auto) (0.0-0.1) 10^3/uL Absolute Nucleated RBC x10^3/uL Nucleated RBC % /100WBC Manual Slide Review Platelet Estimate (NORMAL) Platelet Morphology (NORMAL) RBC Morph Micro Appear (NORMAL) Bld Gas Analysis Time Sample Site ABG pH (7.35-7.45) ABG pCO2 (34-45) mmHg ABG pO2 (80-100) mmHg ABG HCO3 (22.0-26.0) mmol/L ABG Total CO2 (21.0-29.0) MMOL/L ABG O2 Saturation (94-98) % ABG Base Excess (-2.0-3.0) mmol/L Doug Test VBG pH (7.31-7.41) Ionized Calcium (1.15-1.33) mmol/L Respiration Rate b/min O2 Delivery Device Vent Mode FiO2 Tidal Volume mL PEEP cmH2O Pressure Support Vent cmH2O Sodium (135-145) mmol/L Potassium 4.1 (3.5-5.0) mmol/L Chloride (101-111) mmol/L Carbon Dioxide (21-32) mmol/L Anion Gap (6-13) BUN (6-20) mg/dL Creatinine (0.6-1.2) mg/dL Estimated GFR (MDRD) (>89) Glucose (70-100) mg/dL Calcium (8.5-10.3) mg/dL Phosphorus 2.9 (2.5-4.6) mg/dL Magnesium 1.9 (1.7-2.8) mg/dL Triglycerides ( - 149) mg/dL SARS-CoV-2 (PCR) Assessment/Plan - Problem List (1) Pneumonia Impression: Yesterday, 711, he spiked a fever, a chest x-ray showed new opacities. He was started on empiric antibiotics after blood cultures were drawn. Follow-up chest x-ray today shows the infiltrate but improved aeration of the other lung. His ET tube and NG tube are in correct position Because of his altered mental status, I suspected he developed an aspiration pneumonia and I ordered IV cefepime and IV Flagyl There is no history of MRSA, no vancomycin was started. Plan: We are working toward extubation on this patient (see below). Continue with empiric IV antibiotics. Await blood culture results to tailor antibiotics. (2) HTN Patient was running systolic BPs of 180-200/100-110. This may have been because of fever and presumed new infection, or withdrawal from some of his narcotic sedative agents. IV hydralazine as needed had been ordered at admission for high blood pressures. Yesterday I had to give him labetalol pushes and then start a labetalol drip. Today his heart rate is 57. Blood pressure is still poorly controlled. NS was stopped yesterday. Plan: IV Hydralazine prn will be changed to scheduled TID Continue with IV labetalol only as needed When he is extubated, we will resume any oral antihypertensive medications if he was on them, I will check with the pharmacist's reconciled med list (3) On mechanically assisted ventilation He was intubated in the ER when he had respiratory depression from having received sedatives for agitation. He was on propofol drip, fentanyl drip and vecuronium drip. Vecuronium was completely stopped yesterday. Overnight he still required propofol and fentanyl. The fentanyl was stopped this morning then propofol was tried titrated down. He was then put on a CPAP trial and his respiratory parameters were checked and were adequate. The patient was extubated successfully at 1450 today. Plan: Remain in the ICU today in case his respiratory status worsens and we have to reintubate We will give supplemental oxygen if needed, to maintain O2 saturations 92% or above. We will start him on a diet, pured diet then advance as tolerated (4) Elevated CK Conclusion/Plan: CK was elevated to over 700. Most likely this is because of his agitation against restraints, when in the ED. The repeat CK level has decreased slightly to 518 (All labs were reviewed). Plan: Follow CK daily to asuure decreasing (5) Delirium due to methamphetamine intoxication Impression: Resolved This patient's presentation in the emergency room was that of acute intoxication. He was intubated to protect his airway. He was not intubated because he had cardiopulmonary issues. Plan: Once he is medically stabilized, I will request a social work, dk for further recommendations regarding his substance abuse The goal may be that he returns to [facility] after he is medically stabilized, for further substance use rehab. (6) Altered mental state - R41.82 Conclusion/Plan: Resolved He was confused when he presented to the ER then became even more altered after Ativan, Haldol, ketamine. It is clear from the ER provider's discussion that he was becoming stuporous and needed airway protection. His altered mental status was also due to the acute methamphetamine toxicity that was presumed by his behavior at admission. Plan: As in # 5 (7) Psychosis, paranoid Conclusion/Plan: This has been a decades long problem. He has never received a formal diagnosis. It is unclear whether his psychosis appeared after substance abuse or does he have substance abuse because he had psychosis. Family is looking to get a mental health provider. He has never agreed to it before. They are hoping that he gets into rehab, then sees a mental health provider. Yesterday, family met with our child welfare social worker and gave many examples of his paranoia, hallucinations and drug use. Plan: Once he is medically stable, will ask social work to contact [facility] to see if he could be an involuntary hold and sent to an inpatient psych facility.
[2022-12-05] MEDS ORDERED: BISACODYL 10 MG SUPP PR ONE (19:41)
[2022-12-05] MEDS: MORPHINE 2 MG/ML CARPUJECT IVP PRN (21:51)
[2022-12-05] MEDS: DOCUSATE SODIUM 250 MG CAPSULE PO SCH (22:18)
[2022-12-05] MEDS: polyethylene glycoL 3350 17 GM PACKET PO SCH (22:18)
[2022-12-06] MEDS: LORazepam 2 MG/ML VIAL IVP PRN ×2 (00:03→01:48)
[2022-12-06] MEDS: POTASSIUM CHLORIDE 20 MEQ TABLET PO SCH ×2 (00:03→01:47)
[2022-12-06] MEDS: SODIUM CHLORIDE FLUSH 0.9% 10 ML SYRINGE IVP SCH ×3 (00:04→18:48)
[2022-12-06 04:42] LABS: BASOPHILS # (AUTO) 0.1 10^3/uL (0.0-0.1); BASOPHILS % (AUTO) 0.4 %; EOSINOPHILS % (AUTO) 0.2 %; HCT - HEMATOCRIT 41.7 % (42.0-52.0); HGB - HEMOGLOBIN 13.6 g/dL (14.0-18.0); LYMPHOCYTES # (AUTO) 1.2 10^3/uL (1.5-3.5); MEAN CORPUSCULAR HGB CONC 32.6 g/dL (32.0-36.0); MEAN CORPUSCULAR VOLUME 85.8 fL (80.0-94.0); MONOCYTES # (AUTO) 1.4 10^3/uL (0.0-1.0); NEUTROPHILS # (AUTO) 14.2 10^3/uL (1.5-6.6); PLT - PLATELET COUNT 290 10^3/uL (130-450); RED BLOOD COUNT 4.86 10^6/uL (4.70-6.10); RED CELL DISTRIBUTION WIDTH 13.3 % (12.0-15.0); WHITE BLOOD COUNT 16.9 x10^3/uL (4.8-10.8)
[2022-12-06 04:43] LABS: CALCIUM, IONIZED 1.14 mmol/L (1.15-1.33); VBG PH 7.486 (7.31-7.41)
[2022-12-06 04:52] LABS: CALCIUM 8.7 mg/dL (8.5-10.3); CREATININE 0.8 mg/dL (0.6-1.2); POTASSIUM 3.6 mmol/L (3.5-5.0)
[2022-12-06 04:55] LABS: MAGNESIUM 2.2 mg/dL (1.7-2.8); PHOSPHORUS 2.3 mg/dL (2.5-4.6)
[2022-12-06] MEDS ORDERED: POTASSIUM PHOSPHATE 15 MMOL in SODIUM CHLORIDE 0.9% 250 ML IV ONE (05:07)
[2022-12-06] MEDS ORDERED: POTASSIUM CHLORIDE 20 MEQ TABLET PO ONE ×3 (05:10→21:35)
[2022-12-06] MEDS: metroNIDAZOLE 500 MG/100 ML 500 MG/100 ML BAG IV SCH ×2 (06:33→14:33)
[2022-12-06] MEDS: hydrALAZINE INJ 20 MG/ML VIAL IVP SCH ×2 (06:34→14:30)
[2022-12-06] MEDS: ACETAMINOPHEN 325 MG TABLET PO PRN (06:34)
[2022-12-06] MEDS ORDERED: traZODone 50 MG TABLET PO PRN (07:50)
[2022-12-06] MEDS ORDERED: NON FORMULARY MED (Vitamin B Complex [Vitamin B Complex] 1 EACH Tablet) PO SCH (09:00)
[2022-12-06] MEDS: CEFEPIME 2 GM in SODIUM CHLORIDE 0.9% MINIBAG 100 ML IV SCH (09:25)
[2022-12-06] MEDS: FAMOTIDINE 20 MG/2 ML VIAL IVP SCH (10:03)
[2022-12-06] MEDS: CHLORHEXIDINE GLUCONATE 15 ML UDC PO SCH (10:04)
[2022-12-06] MEDS: polyethylene glycoL 3350 17 GM PACKET PO SCH (10:04)
[2022-12-06] MEDS: guaiFENesin 600 MG TABLET PO SCH ×2 (10:04→20:16)
[2022-12-06] MEDS: DOCUSATE SODIUM 250 MG CAPSULE PO SCH (10:04)
[2022-12-06] MEDS: SENNA 8.6 MG TABLET PO SCH (10:05)
[2022-12-06] MEDS: TAMSULOSIN 0.4 MG CAPSULE PO SCH (10:19)
--- NOTE | 2022-12-06 15:21 | PROVIDER PROGRESS NOTE ---
Subjective - Subjective Pt reports feeling: Improved (Patient is awake but minimally communicative. He denies any pain, has an appetite, is eating 25 to 50%. He is able to walk to the bathroom. In the morning he was sleepy, by the afternoon he is much more awake) Objective - Vital Signs/Intake & Output Reviewed Vital Signs: Yes Vital Signs: Vital Signs Temp Pulse Resp BP BP Pulse Ox 12/06/22 14:30 144/70 H 12/06/22 13:00 36.8 C 105 H 32 H 141/85 H 97 Intake & Output: Intake & Output 12/03/22 12/04/22 12/05/22 12/06/22 23:59 23:59 23:59 23:59 Intake Total 3083.544 1794.346 0406.211 0863 Output Total 530 1312 3050 0 Balance 551.678 8666.346 -6282.910 0513 - Objective General Appearance: positive: No acute distress, Alert, Other (Male pattern baldness. His face is flushed or it is sunburned.) Eyes Bilateral: positive: Normal inspection ENT: positive: ENT inspection nml, No signs of dehydration Neck: positive: Nml inspection, No JVD Respiratory: positive: No respiratory distress, Breath sounds nml Cardiovascular: positive: Regular rate & rhythm, No murmur Abdomen: positive: Non-tender, No distention Skin: positive: Warm, Dry Extremities: positive: Non-tender, No pedal edema Neurologic/Psychiatric: positive: Oriented x3, Motor nml - Lab Results Fish Bones: 12/06/22 04:18 12/06/22 04:18 Other Labs: Lab Results x24hrs 12/06/22 12/06/22 12/06/22 Range/Units 04:18 04:18 04:18 WBC (4.8-10.8) x10^3/uL RBC (4.70-6.10) 10^6/uL Hgb (14.0-18.0) g/dL Hct (42.0-52.0) % MCV (80.0-94.0) fL MCH (27.0-31.0) pg MCHC (32.0-36.0) g/dL RDW (12.0-15.0) % Plt Count (130-450) 10^3/uL MPV (7.4-11.4) fL Neut # (Auto) (1.5-6.6) 10^3/uL Lymph # (Auto) (1.5-3.5) 10^3/uL [place] # (Auto) (0.0-1.0) 10^3/uL Eos # (Auto) (0.0-0.7) 10^3/uL Baso # (Auto) (0.0-0.1) 10^3/uL Absolute Nucleated RBC x10^3/uL Nucleated RBC % /100WBC VBG pH 7.486 H (7.31-7.41) Ionized Calcium 1.14 L (1.15-1.33) mmol/L Sodium 139 (135-145) mmol/L Potassium 3.6 (3.5-5.0) mmol/L Chloride 105 (101-111) mmol/L Carbon Dioxide 27 (21-32) mmol/L Anion Gap 7.0 (6-13) BUN 23 H (6-20) mg/dL Creatinine 0.8 (0.6-1.2) mg/dL Estimated GFR (MDRD) 99 (>89) Glucose 113 H (70-100) mg/dL Calcium 8.7 (8.5-10.3) mg/dL Phosphorus 2.3 L (2.5-4.6) mg/dL Magnesium 2.2 (1.7-2.8) mg/dL Total Creatine Kinase (22-269) IU/L 12/06/22 12/05/22 12/05/22 Range/Units 04:18 23:10 19:12 WBC 16.9 H (4.8-10.8) x10^3/uL RBC 4.86 (4.70-6.10) 10^6/uL Hgb 13.6 L (14.0-18.0) g/dL Hct 41.7 L (42.0-52.0) % MCV 85.8 (80.0-94.0) fL MCH 28.0 (27.0-31.0) pg MCHC 32.6 (32.0-36.0) g/dL RDW 13.3 (12.0-15.0) % Plt Count 290 (130-450) 10^3/uL MPV 9.0 (7.4-11.4) fL Neut # (Auto) 14.2 H (1.5-6.6) 10^3/uL Lymph # (Auto) 1.2 L (1.5-3.5) 10^3/uL [place] # (Auto) 1.4 H (0.0-1.0) 10^3/uL Eos # (Auto) 0.0 (0.0-0.7) 10^3/uL Baso # (Auto) 0.1 (0.0-0.1) 10^3/uL Absolute Nucleated RBC 0.00 x10^3/uL Nucleated RBC % 0.0 /100WBC VBG pH (7.31-7.41) Ionized Calcium (1.15-1.33) mmol/L Sodium (135-145) mmol/L Potassium 3.5 3.6 (3.5-5.0) mmol/L Chloride (101-111) mmol/L Carbon Dioxide (21-32) mmol/L Anion Gap (6-13) BUN (6-20) mg/dL Creatinine (0.6-1.2) mg/dL Estimated GFR (MDRD) (>89) Glucose (70-100) mg/dL Calcium (8.5-10.3) mg/dL Phosphorus (2.5-4.6) mg/dL Magnesium (1.7-2.8) mg/dL Total Creatine Kinase (22-269) IU/L 12/05/22 Range/Units 10:37 WBC (4.8-10.8) x10^3/uL RBC (4.70-6.10) 10^6/uL Hgb (14.0-18.0) g/dL Hct (42.0-52.0) % MCV (80.0-94.0) fL MCH (27.0-31.0) pg MCHC (32.0-36.0) g/dL RDW (12.0-15.0) % Plt Count (130-450) 10^3/uL MPV (7.4-11.4) fL Neut # (Auto) (1.5-6.6) 10^3/uL Lymph # (Auto) (1.5-3.5) 10^3/uL [place] # (Auto) (0.0-1.0) 10^3/uL Eos # (Auto) (0.0-0.7) 10^3/uL Baso # (Auto) (0.0-0.1) 10^3/uL Absolute Nucleated RBC x10^3/uL Nucleated RBC % /100WBC VBG pH (7.31-7.41) Ionized Calcium (1.15-1.33) mmol/L Sodium (135-145) mmol/L Potassium (3.5-5.0) mmol/L Chloride (101-111) mmol/L Carbon Dioxide (21-32) mmol/L Anion Gap (6-13) BUN (6-20) mg/dL Creatinine (0.6-1.2) mg/dL Estimated GFR (MDRD) (>89) Glucose (70-100) mg/dL Calcium (8.5-10.3) mg/dL Phosphorus (2.5-4.6) mg/dL Magnesium (1.7-2.8) mg/dL Total Creatine Kinase 172 (22-269) IU/L Assessment/Plan - Problem List (1) Pneumonia Impression: His CXR showed new opacities when he spiked a fever while on the vent. He was started on empiric antibiotics after blood cultures were drawn. Follow-up chest x-ray showed the infiltrate but improved aeration of the other lung. He spiked a fever in middle of night again. Because of his altered mental status, I suspected he developed an aspiration pneumonia and I ordered IV cefepime and IV Flagyl. There is no history of MRSA, no vancomycin was started. Blood cultures are negative at 2 days. WBC is improving (all labs were reviewed) from 20>> 20>> 16.9 today. Plan: Today I will change his empiric IV antibiotics to oral Augmentin po BID. Await blood culture results to tailor antibiotics. (2) Methamphetamine abuse Impression: This patient's presentation in the emergency room was that of acute intoxication. He was intubated to protect his airway after he received sedatives. I believe that he detoxed while he was on the vent for 48 hours. He was extubated yesterday. He did need 1 dose of morphine at 2200 yesterday then a dose of Ativan IV at midnight and 02 100 today, for agitation Plan: Today he is medically stabilized, I will request a social work consult for further recommendations regarding his substance abuse, possibly [facility] to detain (3) Psychosis, paranoid Conclusion/Plan: This has been a decades long problem. He has never received a formal diagnosis. It is unclear whether his psychosis appeared after substance abuse or does he have substance abuse because he had psychosis. Family is looking to get a mental health provider. He has never agreed to it before. They are hoping that he gets into rehab, then sees a mental health provider. The family met with our social insurance administrator and gave many examples of his paranoia, hallucinations and drug use. Today it was witnessed that he was swearing, while looking upward, while walking to the bathroom. When the [place] asked him if anything was wrong, he gave her no response Plan: Today he is medically stable, and will ask social work to contact [facility] to see if he could be an involuntary hold and sent to an inpatient psych facility. (4) HTN Patient was running systolic BPs of 180-200/100-110. This may have been because of fever and presumed new infection, or withdrawal from substances.He has needed IV labetalol and IV hydralazine. He is on oral blood pressure meds today and he has better BP control in the 140s over 80's Plan: IV Hydralazine TID today will be changed to oral hydralazine 25 4 times daily (5) Altered mental state - R41.82 Conclusion/Plan: Resolved He was confused when he presented to the ER then became even more altered after Ativan, Haldol, ketamine. It is clear from the ER provider's discussion that he was becoming stuporous and needed airway protection. His altered mental status was also due to the acute methamphetamine toxicity that was presumed by his behavior at admission. Plan: As in # 2 & 3 (6) On mechanically assisted ventilation Resolved He was intubated in the ER when he had respiratory depression from having received sedatives for agitation. He was extubated successfully yesterday afternoon. He is eating a diet, awake and alert today (7) Elevated CK Conclusion/Plan: Resolved CK was elevated to over 700. Most likely this is because of his agitation against restraints, when in the ED. The repeat CK levels were 518>> normal at 172 yesteray (All labs were reviewed).
[2022-12-06 15:49] LABS: PHOSPHORUS 1.9 mg/dL (2.5-4.6); POTASSIUM 3.7 mmol/L (3.5-5.0)
[2022-12-06] MEDS: hydrALAZINE 25 MG TABLET PO SCH ×2 (17:00→20:15)
[2022-12-06] MEDS: NEUTRA-PHOS 250 MG TABLET PO SCH ×2 (17:00→18:49)
[2022-12-06] MEDS: AMOX/CLAV 875 MG/125 MG TABLET PO SCH (20:16)
[2022-12-07] MEDS: SODIUM CHLORIDE FLUSH 0.9% 10 ML SYRINGE IVP PRN ×3 (05:33→20:50)
[2022-12-07] MEDS: SODIUM CHLORIDE FLUSH 0.9% 10 ML SYRINGE IVP SCH ×4 (05:33→20:50)
[2022-12-07 06:23] LABS: CALCIUM, IONIZED 1.15 mmol/L (1.15-1.33); VBG PH 7.507 (7.31-7.41)
[2022-12-07 06:24] LABS: BASOPHILS # (AUTO) 0.1 10^3/uL (0.0-0.1); BASOPHILS % (AUTO) 0.4 %; EOSINOPHILS # (AUTO) 0.1 10^3/uL (0.0-0.7); EOSINOPHILS % (AUTO) 0.5 %; HCT - HEMATOCRIT 43.1 % (42.0-52.0); HGB - HEMOGLOBIN 14.1 g/dL (14.0-18.0); LYMPHOCYTES # (AUTO) 1.2 10^3/uL (1.5-3.5); LYMPHOCYTES % (AUTO) 9.6 %; MEAN CORPUSCULAR HEMOGLOBIN 28.2 pg (27.0-31.0); MEAN CORPUSCULAR HGB CONC 32.7 g/dL (32.0-36.0); MEAN CORPUSCULAR VOLUME 86.2 fL (80.0-94.0); MEAN PLATELET VOLUME 8.7 fL (7.4-11.4); MONOCYTES # (AUTO) 1.3 10^3/uL (0.0-1.0); MONOCYTES % (AUTO) 10.3 %; NEUTROPHILS % (AUTO) 78.7 %; PLT - PLATELET COUNT 289 10^3/uL (130-450); RED CELL DISTRIBUTION WIDTH 13.3 % (12.0-15.0); WHITE BLOOD COUNT 12.8 x10^3/uL (4.8-10.8)
[2022-12-07 06:43] LABS: CALCIUM 8.8 mg/dL (8.5-10.3); CREATININE 0.7 mg/dL (0.6-1.2); MAGNESIUM 2.2 mg/dL (1.7-2.8); PHOSPHORUS 2.7 mg/dL (2.5-4.6); POTASSIUM 4.2 mmol/L (3.5-5.0)
[2022-12-07 08:41] LABS: FOLATE 15.75 ng/mL (5.90 - >24.8)
[2022-12-07] MEDS: MULTIVITAMIN TABLET PO SCH (09:12)
[2022-12-07] MEDS: hydrALAZINE 25 MG TABLET PO SCH ×4 (09:13→20:49)
[2022-12-07] MEDS: TAMSULOSIN 0.4 MG CAPSULE PO SCH (09:13)
[2022-12-07] MEDS: guaiFENesin 600 MG TABLET PO SCH ×2 (09:14→20:49)
[2022-12-07] MEDS: AMOX/CLAV 875 MG/125 MG TABLET PO SCH ×2 (09:14→20:49)
[2022-12-07] MEDS: polyethylene glycoL 3350 17 GM PACKET PO SCH (09:21)
[2022-12-07] MEDS: DOCUSATE SODIUM 250 MG CAPSULE PO SCH (09:21)
[2022-12-07] MEDS: SENNA 8.6 MG TABLET PO SCH (09:22)
--- NOTE | 2022-12-07 13:30 | PROVIDER PROGRESS NOTE ---
Assessment/Plan - Problem List (1) Polysubstance abuse Assessment/Plan: The patient admitted to abusing Fentanyl and Meth. This patient's presentation in the emergency room was that of acute intoxication. He was intubated to protect his airway after he received sedatives. I believe that he detoxed from Meth while he was on the vent for 48 hours, and was on iv Propofol drip and iv Fentanyl drip while on the vent. He has had brief agitation for the past 2 days, interspersed with somnolence He was felt to be medically stabilized yesterday and social work was consulted for further recommendations regarding his substance abuse. A DCR then saw him in person yesterday evening at 1830, who reported to me that he was willing voluntarily to go to a center. [facility] was contacted and they said he would not be accepted to return there. Plan: SW to continue today to work on a location for him to be admitted to for drug rehab (2) Psychosis, paranoid Conclusion/Plan: This has been a decades long problem. He has never received a formal diagnosis. It is unclear whether his psychosis appeared after substance abuse or does he have substance abuse because he had psychosis. Family is looking to get a mental health provider. He has never agreed to it before. They are hoping that he gets into rehab, then sees a mental health provider. The family met with our social media assistant and gave many examples of his paranoia, hallucinations and drug use. These are written in Affidavits which LISA has. It was witnessed that he was swearing, looking upward, while walking to the bathroom. When the SHEEP HERDER asked him if anything was wrong, he gave her no response. Other examples of presumed hallucinations were charted by RN and SHEEP HERDER. Plan: He was moved out of ICU to [facility] status today, and telemetry stopped. (3) Pneumonia Impression: His CXR showed new opacities when he spiked a fever while on the vent. He was started on empiric antibiotics after blood cultures were drawn. Follow-up chest x-ray showed the infiltrate but improved aeration of the other lung. He has had no more fevers for 2 days. Because of his altered mental status, I suspected he developed an aspiration pneumonia and he first got IV cefepime and IV Flagyl. Yesterday 12/06, I changed his empiric IV antibiotics to oral Augmentin po BID. Blood cultures are negative to date. WBC is improving (all labs were reviewed) from 20>> 20>> 16.9>> 12.8 today. Plan: We will complete a 7-day total course of treatment Await blood culture results to tailor antibiotics if needed.. (4) HTN Impression: Patient was running systolic BPs of 180-200/100-110. This may have been because of infection, or withdrawal from substances. He needed IV labetalol and IV hydralazine. He is on oral blood pressure meds now and he has better BP control in the 140s over 80's Plan: Continue oral BP meds (5) Altered mental state - R41.82 Conclusion/Plan: Resolved He was confused when he presented to the ER then became even more altered after Ativan, Haldol, ketamine. His altered mental status was also due to the acute methamphetamine toxicity that was presumed by his behavior at admission. Plan: As in # 1 & 2 (6) On mechanically assisted ventilation Conclusion/Plan: Resolved He was intubated in the ER when he had respiratory depression from having r eceived sedatives for agitation. He was extubated successfully (7) Elevated CK Conclusion/Plan: Rhabdomyolysis from agitation in ER has resolved CK was elevated to over 700>> 518>> normal at 172 (All labs were reviewed). - Current Meds Current Meds: Current Medications Generic Name Dose Route Start Last Admin Trade Name Freq PRN Reason Stop Dose Admin Acetaminophen 650 mg 12/03/22 15:55 12/06/22 06:34 Acetaminophen 325 Mg Tablet PO 650 mg Q4HR PRN Administration Pain 1 to 4, or Fever Amoxicillin/Clavulanate Potassium 1 tab 12/06/22 21:00 12/07/22 09:14 Amox/Clav 875 Mg/125 Mg Tablet PO 1 tab BID OLIVE Administration Docusate Sodium 250 - 500 mg 12/05/22 22:00 12/07/22 09:21 Docusate Sodium 250 Mg Capsule PO Not Given DAILY OLIVE Guaifenesin 600 mg 12/06/22 09:00 12/07/22 09:14 Guaifenesin 600 Mg Tablet PO 600 mg BID OLIVE Administration Hydralazine HCl 25 mg 12/06/22 17:00 12/07/22 13:06 Hydralazine 25 Mg Tablet PO 25 mg QID OLIVE Administration Multivitamins 1 tab 12/07/22 08:00 12/07/22 09:12 Multivitamin Tablet PO 1 tab DAILYWM OLIVE Administration Polyethylene Glycol 17 gm 12/05/22 22:00 12/07/22 09:21 Polyethylene Glycol 3350 17 Gm Packet PO Not Given DAILY OLIVE Senna 8.6 - 17.2 mg 12/06/22 09:00 12/07/22 09:22 Senna 8.6 Mg Tablet PO Not Given DAILY OLIVE Sodium Chloride 10 ml 12/03/22 15:55 12/07/22 09:17 Sodium Chloride Flush 0.9% 10 Ml Syringe IVP 10 ml PRN PRN Administration NEEDED PER PROVIDER ORDERS Sodium Chloride 10 ml 12/03/22 17:00 12/07/22 09:17 Sodium Chloride Flush 0.9% 10 Ml Syringe IVP 10 ml 0100,0900,1700 OLIVE Administration Tamsulosin HCl 0.4 mg 12/06/22 09:00 12/07/22 09:13 Tamsulosin 0.4 Mg Capsule PO 0.4 mg DAILY OLIVE Administration - Lab Result Fish Bone Diagrams: 12/07/22 06:13 12/07/22 06:13 - Additional Planning My Orders: My Active Orders 12/06/22 17:00 hydrALAZINE [Apresoline] 25 mg PO QID 12/06/22 18:43 Central Line Discontinuation [RC] .ONCE 12/06/22 21:00 Amox/Clav 875/125 [Augmentin 875/125 Tab] 1 tab PO BID 12/07/22 08:00 Multivitamin [Theragran] 1 tab PO DAILYWM 12/07/22 08:04 Telemetry-Discontinue [RC] .ONCE 12/07/22 Lunch Soft Mechanical Diet [DIET] 12/07/22 13:14 Transfer [Admit \ Transfer \ Status] [RC] .ONCE 12/08/22 05:00 BMP - BASIC METABOLIC PANEL [CHEM] DAILYLAB CALCIUM, IONIZED ([facility]) [BG] DAILYLAB CBC - COMP BLD CT W/AUTO DIFF [HEME] DAILYLAB MAGNESIUM [CHEM] DAILYLAB PHOSPHORUS [CHEM] DAILYLAB POTASSIUM [CHEM] DAILYLAB 12/09/22 05:00 CALCIUM, IONIZED ([facility]) [BG] DAILYLAB MAGNESIUM [CHEM] DAILYLAB PHOSPHORUS [CHEM] DAILYLAB POTASSIUM [CHEM] DAILYLAB 12/10/22 05:00 CALCIUM, IONIZED ([facility]) [BG] DAILYLAB Subjective - Subjective Patient Reports: Feeling Better (He has been more engaging, speaking on the ph one to people at different centers who are screening him for admission to their center.) Objective Vital Signs: Vital Signs - 24 hr 12/06/22 12/06/22 12/06/22 14:30 17:00 20:09 Temperature 36.5 C Heart Rate [ 94 84 Monitoring electrodes] Respiratory 28 H 30 H Rate Blood Pressure 144/70 H Blood Pressure 140/68 H 152/75 H [Right Brachial artery] O2 Saturation 97 97 12/06/22 12/06/22 12/06/22 20:36 20:40 21:24 Temperature 36.8 C Heart Rate [ 83 87 Monitoring electrodes] Respiratory 32 H 33 H Rate Blood Pressure Blood Pressure 160/86 H 141/70 H [Right Brachial artery] O2 Saturation 94 97 12/07/22 12/07/22 12/07/22 01:05 04:45 08:02 Temperature 36.9 C 36.5 C 36.4 C L Heart Rate [ 75 81 81 Monitoring electrodes] Respiratory 29 H 28 H 18 Rate Blood Pressure Blood Pressure 158/82 H 154/81 H 149/84 H [Right Brachial artery] O2 Saturation 97 98 99 12/07/22 13:00 Temperature 36.8 C Heart Rate [ 141 H Monitoring electrodes] Respiratory 16 Rate Blood Pressure Blood Pressure 154/75 H [Right Brachial artery] O2 Saturation 99 Oxygen O2 Source Room air I&O (Last 24 Hrs): Intake and Output Totals x24h 12/05/22 12/06/22 12/07/22 23:59 23:59 23:59 Intake Total 2204.521 6762 1330 Output Total 3050 0 Balance -1898.858 3406 1330 General: Alert HEENT: Mucous membr. moist/pink Neck: Supple Neuro: Alert, Non Focal Cardiovascular: Regular rate Respiratory: No respiratory distress Extremities: No clubbing, No edema - Results Results: Laboratory Results WBC 12.8 x10^3/uL (4.8-10.8) H 12/07/22 06:13 RBC 5.00 10^6/uL (4.70-6.10) 12/07/22 06:13 Hgb 14.1 g/dL (14.0-18.0) 12/07/22 06:13 Hct 43.1 % (42.0-52.0) 12/07/22 06:13 MCV 86.2 fL (80.0-94.0) 12/07/22 06:13 MCH 28.2 pg (27.0-31.0) 12/07/22 06:13 MCHC 32.7 g/dL (32.0-36.0) 12/07/22 06:13 RDW 13.3 % (12.0-15.0) 12/07/22 06:13 Plt Count 289 10^3/uL (130-450) 12/07/22 06:13 MPV 8.7 fL (7.4-11.4) 12/07/22 06:13 Neut # (Auto) 10.0 10^3/uL (1.5-6.6) H 12/07/22 06:13 Lymph # (Auto) 1.2 10^3/uL (1.5-3.5) L 12/07/22 06:13 Crenshaw # (Auto) 1.3 10^3/uL (0.0-1.0) H 12/07/22 06:13 Eos # (Auto) 0.1 10^3/uL (0.0-0.7) 12/07/22 06:13 Baso # (Auto) 0.1 10^3/uL (0.0-0.1) 12/07/22 06:13 Absolute Nucleated RBC 0.00 x10^3/uL 12/07/22 06:13 Nucleated RBC % 0.0 /100WBC 12/07/22 06:13 Manual Slide Review Indicated 12/05/22 10:37 Platelet Estimate NORMAL (130-450,000) (NORMAL) 12/05/22 10:37 Platelet Morphology NORMAL APPEARANCE (NORMAL) 12/05/22 10:37 RBC Morph Micro Appear NORMAL APPEARANCE (NORMAL) 12/05/22 10:37 Bld Gas Analysis Time 0612/05/22 06:20 Sample Site RIGHT RADIAL 12/05/22 06:20 ABG pH 7.47 (7.35-7.45) H 12/05/22 06:20 ABG pCO2 35 mmHg (34-45) 12/05/22 06:20 ABG pO2 133 mmHg (80-100) H 12/05/22 06:20 ABG HCO3 24.8 mmol/L (22.0-26.0) 12/05/22 06:20 ABG Total CO2 25.9 MMOL/L (21.0-29.0) 12/05/22 06:20 ABG O2 Saturation 99 % (94-98) H 12/05/22 06:20 ABG Base Excess 1.5 mmol/L (-2.0-3.0) 12/05/22 06:20 Doug Test POSITIVE 12/05/22 06:20 VBG pH 7.507 (7.31-7.41) H 12/07/22 06:13 Ionized Calcium 1.15 mmol/L (1.15-1.33) 12/07/22 06:13 Respiration Rate 16 b/min 12/05/22 06:20 O2 Delivery Device VENTILATOR 12/05/22 06:20 Vent Mode SIMV 12/05/22 06:20 FiO2 30.00 12/05/22 06:20 Tidal Volume 450 mL 12/05/22 06:20 PEEP 5 cmH2O 12/05/22 06:20 Pressure Support Vent 10 cmH2O 12/05/22 06:20 Sodium 139 mmol/L (135-145) 12/07/22 06:13 Potassium 4.2 mmol/L (3.5-5.0) 12/07/22 06:13 Chloride 106 mmol/L (101-111) 12/07/22 06:13 Carbon Dioxide 26 mmol/L (21-32) 12/07/22 06:13 Anion Gap 7.0 (6-13) 12/07/22 06:13 BUN 33 mg/dL (6-20) H 12/07/22 06:13 Creatinine 0.7 mg/dL (0.6-1.2) 12/07/22 06:13 Estimated GFR (MDRD) 115 (>89) 12/07/22 06:13 Glucose 119 mg/dL (70-100) H 12/07/22 06:13 Calcium 8.8 mg/dL (8.5-10.3) 12/07/22 06:13 Phosphorus 2.7 mg/dL (2.5-4.6) 12/07/22 06:13 Magnesium 2.2 mg/dL (1.7-2.8) 12/07/22 06:13 Total Bilirubin 0.8 mg/dL (0.2-1.0) 12/04/22 14:24 AST 24 IU/L (10-42) 12/04/22 14:24 ALT 28 IU/L (10-60) 12/04/22 14:24 Alkaline Phosphatase 59 IU/L (42-121) 12/04/22 14:24 Total Creatine Kinase 172 IU/L (22-269) 12/05/22 10:37 B-Natriuretic Peptide 18 pg/mL (5-100) 12/04/22 14:24 Total Protein 7.2 g/dL (6.7-8.2) 12/04/22 14:24 Albumin 3.3 g/dL (3.2-5.5) 12/04/22 14:24 Globulin 3.9 g/dL (2.1-4.2) 12/04/22 14:24 Albumin/Globulin Ratio 0.8 (1.0-2.2) L 12/04/22 14:24 Triglycerides 71 mg/dL (-149) 12/05/22 10:37 Lipase 24 U/L (22-51) 12/03/22 14:06 Vitamin B12 196 pg/mL (180-914) 12/07/22 06:13 Folate 15.75 ng/mL (5.90 - >24.8) 12/07/22 06:13 Nasal Screen MRSA (PCR) NEGATIVE (NEGATIVE) 12/03/22 17:20 Urine Opiates Screen NEGATIVE (NEGATIVE) 12/03/22 16:10 Ur Oxycodone Screen NEGATIVE (NEGATIVE) 12/03/22 16:10 Urine Methadone Screen NEGATIVE (NEGATIVE) 12/03/22 16:10 Ur Propoxyphene Screen NEGATIVE (NEGATIVE) 12/03/22 16:10 Ur Barbiturates Screen NEGATIVE (NEGATIVE) 12/03/22 16:10 Ur Tricyclics Screen NEGATIVE (NEGATIVE) 12/03/22 16:10 Ur Phencyclidine Scrn NEGATIVE (NEGATIVE) 12/03/22 16:10 Ur Amphetamine Screen POSITIVE (NEGATIVE) H 12/03/22 16:10 U Methamphetamines Scrn POSITIVE (NEGATIVE) H 12/03/22 16:10 U Benzodiazepines Scrn NEGATIVE (NEGATIVE) 12/03/22 16:10 Urine Cocaine Screen NEGATIVE (NEGATIVE) 12/03/22 16:10 U Cannabinoids Screen NEGATIVE (NEGATIVE) 12/03/22 16:10 Ethyl Alcohol < 5.0 mg/dL 12/03/22 14:06 SARS-CoV-2 (PCR) NOT DETECTED 12/05/22 09:00 - Procedures Procedures: Procedures DRAINAGE OF SPINAL CANAL, PERCUTANEOUS APPROACH, DIAGNOSTIC (12/03/18) EXCISION OF DUODENUM, ENDO, DIAGN (08/01/17) EXCISION OF STOMACH, ENDO, DIAGN (08/01/17)
--- NOTE | 2022-12-07 14:20 | Discharge Plan ---
Discharge Plan Problem Reviewed?: Yes Disposition: 02 Transfer Acute Care Hosp Condition: Stable Prescriptions: hydrALAZINE [Apresoline] 25 mg PO TID #90 tab Amox/Clav 875/125 [Augmentin 875/125 Tab] 1 tab PO BID #5 tab Diet: Regular Activity Restrictions: Activity as Tolerated Shower Restrictions: No Weight Bearing: Full Weight Health Concerns: Patient has a Hx of Meth and Fentanyl abuse and was hospitalized now for acute drug intoxication, had altered mental status with agitation, required sedatives and then needed to be intubated and was put on a ventilator for airway protection. He developed a fever and a pneumonia, which improved on antibiotics. He was successfully extubated. His family has described paranoia and hallucinations and he claimed that those occurred when he used methamphetamine and fentanyl. He is amenable to further drug rehab for his drug abuse. There are possibly also underlying mental health problems that were not evaluated in his past. Plan of Treatment: Drug rehab. Patient requires 2.5 more days of oral antibiotics after discharge. He is also on new antihypertensive meds. Care Goals: Improvement in symptoms and stabilization are the goals. Assessment: The patient understands and is agreeable with the plan. No Smoking: If you smoke, Please STOP! Call for help.
[2022-12-07] MEDS: ACETAMINOPHEN 325 MG TABLET PO PRN (19:56)
[2022-12-07] MEDS: cloNIDine 0.1 MG TABLET PO PRN (19:57)
[2022-12-08] MEDS: cloNIDine 0.1 MG TABLET PO PRN ×2 (00:11→05:29)
[2022-12-08 05:20] LABS: CALCIUM, IONIZED 1.15 mmol/L (1.15-1.33); VBG PH 7.526 (7.31-7.41)
[2022-12-08 05:22] LABS: BASOPHILS # (AUTO) 0.1 10^3/uL (0.0-0.1); BASOPHILS % (AUTO) 0.5 %; EOSINOPHILS # (AUTO) 0.3 10^3/uL (0.0-0.7); EOSINOPHILS % (AUTO) 2.8 %; HCT - HEMATOCRIT 40.2 % (42.0-52.0); LYMPHOCYTES # (AUTO) 1.8 10^3/uL (1.5-3.5); LYMPHOCYTES % (AUTO) 16.3 %; MEAN CORPUSCULAR HEMOGLOBIN 28.1 pg (27.0-31.0); MEAN CORPUSCULAR HGB CONC 32.3 g/dL (32.0-36.0); MEAN PLATELET VOLUME 9.1 fL (7.4-11.4); MONOCYTES # (AUTO) 1.1 10^3/uL (0.0-1.0); MONOCYTES % (AUTO) 10.2 %; NEUTROPHILS # (AUTO) 7.6 10^3/uL (1.5-6.6); NEUTROPHILS % (AUTO) 69.7 %; PLT - PLATELET COUNT 305 10^3/uL (130-450); RED BLOOD COUNT 4.62 10^6/uL (4.70-6.10); RED CELL DISTRIBUTION WIDTH 13.1 % (12.0-15.0); WHITE BLOOD COUNT 10.9 x10^3/uL (4.8-10.8)
[2022-12-08 05:31] LABS: CREATININE 0.8 mg/dL (0.6-1.2); PHOSPHORUS 3.5 mg/dL (2.5-4.6); POTASSIUM 4.1 mmol/L (3.5-5.0)
[2022-12-08] MEDS: SODIUM CHLORIDE FLUSH 0.9% 10 ML SYRINGE IVP SCH (08:02)
[2022-12-08] MEDS: AMOX/CLAV 875 MG/125 MG TABLET PO SCH (08:02)
[2022-12-08] MEDS: MULTIVITAMIN TABLET PO SCH (08:02)
[2022-12-08] MEDS: hydrALAZINE 25 MG TABLET PO SCH ×2 (08:02→12:33)
[2022-12-08] MEDS: TAMSULOSIN 0.4 MG CAPSULE PO SCH (08:02)
[2022-12-08] MEDS: guaiFENesin 600 MG TABLET PO SCH (08:02)
[2022-12-08] MEDS: DOCUSATE SODIUM 250 MG CAPSULE PO SCH (08:03)
[2022-12-08] MEDS: polyethylene glycoL 3350 17 GM PACKET PO SCH (08:04)
[2022-12-08] MEDS: SENNA 8.6 MG TABLET PO SCH (08:06)
[2022-12-08] MEDS: ACETAMINOPHEN 325 MG TABLET PO PRN (08:50)
--- NOTE | 2022-12-08 11:48 | Discharge Plan ---
Discharge Plan Problem Reviewed?: Yes Disposition: 02 Transfer Acute Care Hosp Condition: Stable Prescriptions: hydrALAZINE [Apresoline] 25 mg PO TID #90 tab Amox/Clav 875/125 [Augmentin 875/125 Tab] 1 tab PO BID #5 tab Diet: Low Sodium Activity Restrictions: Activity as Tolerated Shower Restrictions: No Weight Bearing: Full Weight Health Concerns: Patient has a Hx of Meth and Fentanyl abuse and was hospitalized now for acute drug intoxication, had altered mental status with agitation, required sedatives and then needed to be intubated and was put on a ventilator for airway protection. He developed a fever and a pneumonia, which improved on antibiotics. He was successfully extubated. His family has described paranoia and hallucinations and he claimed that those occurred when he used methamphetamine and fentanyl. He is amenable to further drug rehab for his drug abuse. There are possibly also underlying mental health problems that were not evaluated in his past. Plan of Treatment: Drug rehab. Patient requires 2 more days of oral antibiotics after discharge. He is also on new antihypertensive meds. Care Goals: Improvement in symptoms and stabilization are the goals. Assessment: The patient understands and is agreeable with the plan. No Smoking: If you smoke, Please STOP! Call for help.
--- NOTE | 2022-12-08 11:53 | DISCHARGE SUMMARY ---
Discharge Summary Admit Date: 12/03/22 Discharge Date: 12/08/22 Discharging Provider: Blanka Talamantes MD Primary Care Provider: RHONA Moon Code Status: Attempt Resuscitation Condition at Discharge: Stable Discharge Disposition: 02 Transfer Acute Care Hosp Discharge [facility] History of Present Illness: The patient has decades long history of fentanyl, meth, and other recreational substances the family may not know about. He started in his teen years. He has been in our ER several times because of accidental drug overdoses. He decided to go to [facility] to get some help. His last use according to his daughter was last night. He did a "blue pill". It supposed to be fentanyl. Within an hour of being at the rehab facility he became confused, incomprehensible speech, agitated. So ambulance was called and he was brought to our ER. He initially he was alert to person, place, time but confused on the situation. Could not do vital signs because he was so agitated. Per the ER provider's assessment and treatment:The patient appeared to be high on some sort of stimulant, and I suspected most likely meth. The patient could converse coherently when redirected but in between, was alternating between crying out, hallucinating, And speaking unintelligibly, although while crying and twitching. He was worked up with laboratory studies and urine drug screen, and given a dose of Zyprexa. This did not seem to yield much in the way of calming the patient down and so the patient was then given Haldol 5 mg and Ativan 1 mg IV. Patient briefly settled down after this but began thrashing, yelling, and responding to internal stimuli again. He was also swinging at the staff. The patient was then given 2 mg/kg of ketamine infusion which did take effect for about 30 minutes and the patient was calm, albeit somnolent. About the time of end of shift signout, the patient began to awaken and become agitated again. I did order 2 mg of Ativan IV. The patient is signed out to Nate Correa, pending completion of work-up and final disposition. He was then seen by the second provider and his assessment was: Care from Dr. Lopez at 3 PM shift change. He had received 2 mg of Ativan IV for anxiety right at shift change. At this time he is Moaning, but not redirectable. Given all the medications he is already had the decision was made to intubate for airway protection and safety. 12/03/22 15:55 He was preoxygenated, RT was at the bedside. I personally pushed 200 mg of propofol and then 200 mg of succinylcholine. Using the glide scope I witnessed a 7-1/2 cm to go through the cords. Note that he was a mildly difficult airway due to anterior cords. He had bilateral breath sounds and positive color change. He was started on a propofol drip. I am now assessing the patient after he has been transferred to the ICU. I excepted the patient to my service and have placed him in ICU because of intubated status. His daughter and his sister were at the bedside and were able to fill in the gaps. He has had a long history of substance abuse. In addition to the substance abuse he also has episodes of psychosis. Sometimes he thinks aliens are coming into the house. Sometimes other people are breaking into the house. But there is no one there. He is paranoid. Delusional. At times very depressed. He has never received formal psychiatric evaluation nor has he ever received mental health care according to his family. They are asking if we could help him. This is the first time he is allowed himself to go to a rehab facility so they were hopeful. Once he gets out of the rehab facility they want to know what to do. The only medication he is taking is Flomax. It is written by Paul Martinez who is a MAYELA in one of our hospital clinics. As far as they know he has no other medical problems. On review of systems from the sister and the daughter, the patient has chronic problems with allergies, runny nose, bronchitis. Its more ENT than pulmonary problems. He did have an episode of chest pain for which she was admitted in 2018. He was found to be more epigastric discomfort and he was on narcotics and nonsteroidals. CT at that time showed thickening of the gastric and duodenal wall. He underwent an EGD for this. He has not had a colonoscopy yet. Family states that he just has "stomach problems" for which she takes ulcer pills. But his appetite has been okay. He has been eating well the last few days. There is been no diarrhea change in bowel habits. He does have prostate problems but there not clear about that. He hurts all over. Constantly. This sometimes wonders as when he does drugs. While he does not have any memory problems, he has a labile affect. He will have days where he is perfectly "normal" and then days where he has paranoia, delusions, hallucinations. This been going on for 20 years. But it is getting worse. Family is beside themselves are trying to figure out how to help him. 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 He was fired from his last job and they told him that they would hire him back once he was clean and sober. - HOSPITAL COURSE Hospital Course: (1) Altered mental state - R41.82 He was confused when he presented to the ER then became even more altered after Ativan, Haldol, ketamine. His altered mental status was also due to the acute methamphetamine toxicity that was presumed by his behavior at admission. He required vecuronium, propofol and IV fentanyl drips while in the ICU. These were all individually weaned to off and he was extubated. He was still lethargic for several days, but on the day of discharge she was alert and oriented x3 (2) On mechanically assisted ventilation He was intubated in the ER when he had respiratory depression from having received sedatives for agitation. He was extubated successfully (3) Pneumonia His CXR showed new opacities when he spiked a fever while on the vent. He was started on empiric antibiotics. Because of his altered mental status, I suspected he developed an aspiration pneumonia and he first got IV Cefepime and IV Flagyl, then we changed his antibiotics to oral Augmentin po BID. He will complete a 7-day total course of treatment. Blood cultures were negative (4) Rhabdomyolysis Rhabdomyolysis from agitation in ER resolved after receiving several days of IV fluid (5) Polysubstance abuse The patient admitted to abusing Fentanyl and Meth. This patient's presentation in the emergency room was that of acute intoxication. He was intubated to protect his airway after he received sedatives. I believe that he detoxed from Meth while he was on the vent for 48 hours, and was on iv Propofol drip and iv Fentanyl drip while on the vent. He still had brief agitation for 2 days, interspersed with somnolence. He was felt to be medically stabilized and social work was consulted regarding his substance abuse. A DCR then saw him in person who reported that he was willing voluntarily to go to a center. SW did have him accepted at [facility] rehab which specializes in both mental health plus substance abuse. He was transferred there in stable condition by ambulance, in case he was a flight risk. (6) Psychosis, paranoid This was a decades long problem. He had never received a formal diagnosis. It is unclear whether his psychosis appeared after substance abuse or does he have substance abuse because he had psychosis. Family was looking to get a mental health provider. He had never agreed to it before. he family met with our geriatric social work professor and gave many examples of his paranoia, hallucinations and drug use. These are written in Affidavits. (7) HTN BP was poorly controlled at 180-200/100-110. This may have been because of infection, or withdrawal from substances. He needed IV labetalol and IV hydralazine. He was put on new oral blood pressure meds and had better BP control in the 140s over 80's - ALLERGIES Allergies/Adverse Reactions: Allergies Allergy/AdvReac Type Severity Reaction Status Date / Time No Known Drug Allergies Allergy Verified 12/03/22 13:50 - MEDICATIONS Home Medications: Ambulatory Orders Medication Instructions Recorded Confirmed Acetaminophen [Tylenol] 1,000 mg PO Q6HR PRN 12/03/22 12/04/22 Bismuth Subsalicylate 2 tab PO Q1HR PRN 12/03/22 12/03/22 Calcium Carbonate [Tums (Calcium 1,000 mg PO BID PRN 12/03/22 12/03/22 Carbonate 500mg)] Dicyclomine [Bentyl] 10 - 20 mg PO Q6HR PRN 12/03/22 12/03/22 Docusate Sodium 100Mg Capsule 100 mg PO BID PRN 12/03/22 12/03/22 [Colace 100Mg Capsule] Gabapentin [Neurontin] 300 mg PO TID PRN 12/03/22 12/03/22 Ibuprofen 600 mg PO Q6HR PRN 12/03/22 12/03/22 Loperamide [Imodium] 2 mg PO QID PRN 12/03/22 12/03/22 Loratadine [Claritin] 10 mg PO DAILY PRN 12/03/22 12/03/22 Multivitamin 1 each PO DAILY 12/03/22 12/03/22 Promethazine [Phenergan] 12.5 mg PO TID PRN 12/03/22 12/03/22 Simethicone [Mylanta Gas Minis] 250 mg PO HS PRN 12/03/22 12/03/22 Tamsulosin [Flomax] 0.4 mg PO DAILY 12/03/22 12/03/22 Vitamin B Complex 1 each PO DAILY 12/03/22 12/03/22 bisacodyL [Dulcolax] 1 - 3 tab PO DAILY PRN 12/03/22 12/03/22 cloNIDine [Catapres] 0.1 mg PO Q4HR PRN 12/03/22 12/03/22 diphenhydrAMINE [Benadryl] 25 - 50 mg PO Q6HR PRN 12/03/22 12/03/22 hydrOXYzine HCL [Hydroxyzine HCl] 50 mg PO Q6HR PRN 12/03/22 12/03/22 methocarbamoL [Methocarbamol] 1,500 mg PO Q6HR PRN 12/03/22 12/03/22 polyethylene glycoL 3350 [Miralax] 17 gm ORAL DAILY PRN 12/03/22 12/03/22 traZODone [Desyrel] 50 - 100 mg PO HS PRN 12/03/22 12/03/22 Benzocaine [Hurricaine] 1 applic TOP QID PRN 12/04/22 12/04/22 Clotrimazole 1% Cream [Lotrimin 1% 1 oz TOP BID PRN 12/04/22 12/04/22 Cream] Hydrocortisone 1% Cream 1 applic TOP BID PRN 12/04/22 12/04/22 [Hydrocortisone] Melatonin [Melatoninmax] 10 mg PO QPM PRN 12/04/22 12/04/22 Menthol [Cough Drops] 1 lozenge PO Q2H PRN 12/04/22 12/04/22 Ondansetron HCl 4 mg SL Q8H PRN 12/04/22 12/04/22 Amox/Clav 875/125 [Augmentin 1 tab PO BID #5 tab 12/07/22 875/125 Tab] cloNIDine [Catapres] 0.1 mg PO Q4HR PRN tab 12/07/22 hydrALAZINE [Apresoline] 25 mg PO TID #90 tab 12/07/22 - PHYSICAL EXAM AT DISCHARGE General Appearance: positive: No acute distress, Alert, Other (Male pattern baldness) Eyes Bilateral: positive: Normal inspection, EOMI ENT: positive: ENT inspection nml, No signs of dehydration Neck: positive: Nml inspection, No JVD Respiratory: positive: No respiratory distress, Breath sounds nml Cardiovascular: positive: Regular rate & rhythm, No murmur Abdomen: positive: Nml bowel sounds, No distention Skin: positive: Warm, Dry Extremities: positive: Non-tender, No pedal edema Neurologic/Psychiatric: positive: Oriented x3, Motor nml - LABS Result Diagrams: 12/08/22 04:19 12/08/22 04:19 - DIAGNOSTIC IMAGING Diagnostic Imaging Results: Final report reviewed - FOLLOW UP Follow Up: [facility], he should follow-up with his PCP. - TIME SPENT Time Spent in Discharge (Minutes): 40
[2022-12-08 12:23] VITALS: BP 150/91
== END 2022-12-08 13:14 | disposition short-term general hospital (02) | DRG 896 ==
LOC: EDUNIT# → ED 13:44 → ICU 16:21
PROVIDERS: ADMIT Specialist; ATTEND Internal Medicine
PROC: 0BH18EZ Insertion of Endotracheal Airway into Trachea, Via Natural or Artificial Opening Endoscopic (ICD-10-PCS; principal; 2022-12-03)
PROC: 5A1945Z Respiratory Ventilation, 24-96 Consecutive Hours (ICD-10-PCS; 2022-12-03)
PROC: 02HV33Z Insertion of Infusion Device into Superior Vena Cava, Percutaneous Approach (ICD-10-PCS; 2022-12-05)
DX: F15.121 Other stimulant abuse with intoxication delirium (principal); J69.0 Pneumonitis due to inhalation of food and vomit; M62.82 Rhabdomyolysis; F11.20 Opioid dependence, uncomplicated; I10 Essential (primary) hypertension; F22 Delusional disorders; E78.00 Pure hypercholesterolemia, unspecified; J44.9 Chronic obstructive pulmonary disease, unspecified; N40.0 Benign prostatic hyperplasia without lower urinary tract symptoms; M19.90 Unspecified osteoarthritis, unspecified site; G89.29 Other chronic pain; M54.9 Dorsalgia, unspecified; F17.200 Nicotine dependence, unspecified, uncomplicated; Z20.822 Contact with and (suspected) exposure to COVID-19; Z78.1 Physical restraint status; Z79.899 Other long term (current) drug therapy; Z81.1 Family history of alcohol abuse and dependence; Z82.3 Family history of stroke; Z82.5 Family history of asthma and other chronic lower respiratory diseases; Z86.73 Personal history of transient ischemic attack (TIA), and cerebral infarction without residual deficits
CPT/HCPCS: 31500; 36415; 36600; 71045; 80048; 80053; 80306; 80320; 82330; 82550; 82607; 82746; 82803; 83690; 83735; 83880; 84100; 84132; 84478; 85025; 87040; 87150; 87635; 93005; 94002; 94003; 96374; 96375; 96376; 99285; A9270; J0330; J2060; J3010

== ENCOUNTER 2023-08-29 15:36 | Emergency (ER) | payer MEDICAID, OTHER ==
[2023-08-29 16:05] LABS: BASOPHILS % (AUTO) 0.1 %; EOSINOPHILS % (AUTO) 0.2 %; HCT - HEMATOCRIT 51.2 % (42.0-52.0); HGB - HEMOGLOBIN 16.6 g/dL (14.0-18.0); LYMPHOCYTES # (AUTO) 1.5 10^3/uL (1.5-3.5); LYMPHOCYTES % (AUTO) 9.9 %; MEAN CORPUSCULAR HEMOGLOBIN 27.8 pg (27.0-31.0); MEAN CORPUSCULAR HGB CONC 32.4 g/dL (32.0-36.0); MEAN CORPUSCULAR VOLUME 85.6 fL (80.0-94.0); MEAN PLATELET VOLUME 9.3 fL (7.4-11.4); MONOCYTES # (AUTO) 1.2 10^3/uL (0.0-1.0); MONOCYTES % (AUTO) 7.9 %; NEUTROPHILS # (AUTO) 12.3 10^3/uL (1.5-6.6); NEUTROPHILS % (AUTO) 81.2 %; PLT - PLATELET COUNT 269 10^3/uL (130-450); RED BLOOD COUNT 5.98 10^6/uL (4.70-6.10); RED CELL DISTRIBUTION WIDTH 12.7 % (12.0-15.0); WHITE BLOOD COUNT 15.2 x10^3/uL (4.8-10.8)
[2023-08-29 16:29] LABS: ALBUMIN 4.5 g/dL (3.2-5.5); ALBUMIN/GLOBULIN RATIO 1.4 (1.0-2.2); BILIRUBIN,TOTAL 1.5 mg/dL (0.2-1.0); CREATININE 1.1 mg/dL (0.6-1.3); POTASSIUM 3.9 mmol/L (3.5-4.5); TOTAL PROTEIN 7.8 g/dL (6.4-8.9)
--- NOTE | 2023-08-29 17:33 | ED Physician Documentation ---
PD HPI NVD - Stated complaint Stated Complaint: VOMITING - Chief complaint Chief Complaint: Abd Pain - History obtained from History obtained from: Patient - History of Present Illness Timing - onset: How many days ago (4) Timing - duration: Days (4) Timing - details: Abrupt onset, Still present, Waxing and waning Associated symptoms: Abdominal pain (epigastric area with eating/intake.), Loss of appetite. No: Fever, Near syncope / syncope Contributing factors: Other (he feels might be due to cannibis use. Has had it a few times previously.). No: Sick contact, Bad food Improved by: No: Vomiting Worsened by: Eating Similar symptoms before: Diagnosis (possible cannibis hyperemesis) Review of Systems Constitutional: denies: Fever, Chills Nose: denies: Rhinorrhea / runny nose, Congestion Throat: denies: Sore throat Respiratory: denies: Cough GI: reports: Abdominal Pain, Nausea, Vomiting. denies: Constipation, Diarrhea, Hematemesis PD PAST MEDICAL HISTORY - Past Medical History Cardiovascular: High cholesterol Respiratory: COPD Neuro: CVA, Headaches Endocrine/Autoimmune: None GI: Other : Benign prostate hypertrophy, Other HEENT: None Psych: None Musculoskeletal: Osteoarthritis, Chronic back pain Derm: None - Past Surgical History Past Surgical History: No - Present Medications Home Medications: Ambulatory Orders Medication Instructions Recorded Confirmed Buprenorphine HCl/Naloxone HCl See Rx Instructions .ROUTE .COMPLEX 08/29/23 08/29/23 [Suboxone 8 mg-2 mg Sl Film] Famotidine [Pepcid] 20 mg PO DAILY #20 tablet 08/29/23 Ondansetron Odt [Zofran] 4 mg TL Q6H PRN #10 tablet 08/29/23 Promethazine Supp [Phenergan Supp] 25 mg VT Q6H PRN #5 supp 08/29/23 - Allergies Allergies/Adverse Reactions: Allergies Allergy/AdvReac Type Severity Reaction Status Date / Time No Known Drug Allergies Allergy Verified 08/29/23 15:44 - Social History Does the pt smoke?: No Smoking Status: Never smoker Does the pt drink ETOH?: No Does the pt have substance abuse?: Yes - Immunizations Immunizations are current?: No Immunizations: Other immun not current - POLST Patient has POLST: No POLST Status: Full Code PD ED PE NORMAL - Vitals Vital signs reviewed: Yes - General General: Alert and oriented X 3, Well developed/nourished - HEENT HEENT: No: Moist mucous membranes - Neck Neck: Supple, no meningeal sign, No adenopathy - Cardiac Cardiac: RRR - Respiratory Respiratory: No respiratory distress, Clear bilaterally - Abdomen Abdomen: Normal bowel sounds, Soft, Non tender, Non distended - Derm Derm: Normal color, Warm and dry - Neuro Neuro: Alert and oriented X 3, No motor deficit, Normal speech Results - Vitals Vitals: Vital Signs - 24 hr 08/29/23 08/29/23 15:39 19:29 Temperature 37.3 C Heart Rate 68 65 Respiratory 16 18 Rate Blood Pressure 149/83 H 148/62 H O2 Saturation 100 98 Oxygen O2 Source Room air - Labs Labs: Laboratory Tests 08/29/23 08/29/23 16:00 16:00 WBC 15.2 H RBC 5.98 Hgb 16.6 Hct 51.2 MCV 85.6 MCH 27.8 MCHC 32.4 RDW 12.7 Plt Count 269 MPV 9.3 Neut # (Auto) 12.3 H Lymph # (Auto) 1.5 Faulkner # (Auto) 1.2 H Eos # (Auto) 0.0 Baso # (Auto) 0.0 Absolute Nucleated RBC 0.00 Nucleated RBC % 0.0 Sodium 135 Potassium 3.9 Chloride 97 L Carbon Dioxide 28 Anion Gap 10.0 BUN 45 H Creatinine 1.1 Estimated GFR (MDRD) 68 L Glucose 113 H Calcium 10.0 Total Bilirubin 1.5 H AST 14 ALT 13 Alkaline Phosphatase 69 Total Protein 7.8 Albumin 4.5 Globulin 3.3 Albumin/Globulin Ratio 1.4 Lipase 10 L PD Medical Decision Making - ED course Complexity details: reviewed results, re-evaluated patient (he is feeling improved nausea but some fidgety after meds, presume akithesia from the inapsine and gave Benadryl with improvement. ), considered differential (few days of N/V with upper abd pain on eating. Not tender to palpation now. days of N/V, can give IV fluids and meds. I did not see advantage to imaging. LFTS and lipase normal. ), d/w patient Departure - Departure Disposition: 01 Home, Self Care Clinical Impression: Nausea and vomiting, Gastritis, acute Condition: Stable Record reviewed to determine appropriate education?: Yes Instructions: ED Nausea Vomiting Prescriptions: Famotidine [Pepcid] 20 mg PO DAILY #20 tablet Promethazine Supp [Phenergan Supp] 25 mg VT Q6H PRN #5 supp PRN Reason: Nausea / Vomiting Ondansetron Odt [Zofran] 4 mg TL Q6H PRN #10 tablet PRN Reason: Nausea / Vomiting Comments: With the vomiting you have had for a few days, no doubt your stomach will be irritated and not tolerate a lot at a time. I would go with small frequent fluids and bland food initially such as carbohydrates and starches tonight and tomorrow and then progressed to more regular diet as tolerated. I would suggest some acid reducing medicine such as famotidine twice daily for few days then once daily for another week or 2. Add antacids such as Maalox or Mylanta periodically to help with stomach irritation as well. I prescribed ondansetron to use every 6 hours if needed for any persistent nausea and if that is not successful, then promethazine suppositories. Recheck if not improved over the next day or so. Return if worse. I sent your prescriptions to your preferred pharmacy, [facility]. Forms: PCP List Discharge Date/Time: 08/29/23 19:29
[2023-08-29] MEDS: SODIUM CHLORIDE 0.9% 2,000 ML IV STA (18:04)
[2023-08-29] MEDS: SODIUM CHLORIDE 0.9% 1,000 ML IV STA (18:04)
[2023-08-29] MEDS: DROPERIDOL 5 MG/2 ML VIAL IVP STA (18:05)
[2023-08-29] MEDS: FAMOTIDINE 20 MG/2 ML VIAL IVP STA (18:05)
[2023-08-29] MEDS: KETOROLAC 15 MG/ML VIAL IVP STA (18:05)
[2023-08-29] MEDS: diphenhydrAMINE INJ 50 MG/ML VIAL IVP STA (18:42)
[2023-08-29 19:34] VITALS: BP 148/62; O2SAT 98
== END 2023-08-29 19:29 | disposition home or self-care (01) ==
LOC: ED 15:36
DX: K29.00 Acute gastritis without bleeding (principal); R11.2 Nausea with vomiting, unspecified; E78.00 Pure hypercholesterolemia, unspecified; J44.9 Chronic obstructive pulmonary disease, unspecified; Z79.899 Other long term (current) drug therapy
CPT/HCPCS: 36415; 80053; 83690; 85025; 96374; 96375; 99283; J1200